=== PATIENT | female | born 1940 | race Caucasian/White ===

== ENCOUNTER 2017-01-15 07:58 | Day surgery (SDC) | payer MEDICARE ==
[2017-01-07 09:01] VITALS: BMI 24.7
[2017-01-15] MEDS: MethylPREDNISolone Depo 40 mg/ml Inj ONE ×2 (08:52→09:28)
[2017-01-15] MEDS: Iohexol 240 (50 ml) ONE ×2 (08:53→09:28)
[2017-01-15] MEDS: Bacitracin 500 Units/gm Oint Foilpak UD ONE ×2 (08:53→09:28)
[2017-01-15] MEDS ORDERED: Lactated Ringer's 1,000 ML IV ONE (09:17)
[2017-01-15] MEDS ORDERED: Propofol 10 mg/ml Inj (20 ML) ONE (09:18)
[2017-01-15] MEDS ORDERED: Midazolam 2 MG/2 ML VIAL ONE (09:18)
[2017-01-15] MEDS ORDERED: Labetalol 25mg/5ml Syringe ONE (09:28)
[2017-01-15] MEDS ORDERED: HYDROmorphone 0.5 mg/0.5 ml ISec IVP PRN (09:38)
[2017-01-15 10:01] VITALS: O2SAT 100
[2017-01-15 10:31] VITALS: RESP 16
[2017-01-15 11:32] VITALS: TEMP 97.2
[2017-01-15 12:03] VITALS: BP 157/68; PULSE 79
--- NOTE | 2017-01-15 21:39 | OP ---
PROCEDURE DATE: 01/15/2017 PREOPERATIVE DIAGNOSIS: Spinal stenosis. POSTOPERATIVE DIAGNOSIS: Spinal stenosis. PROCEDURE: Epidurogram of the lumbar spine. DESCRIPTION OF PROCEDURE: After the patient was brought into the operating room and placed in the prone position on the operating table with her back sterilely prepped and draped and the Tuohy needle placed and was felt to be the epidural space, an epidurogram of the lumbar spine was performed. A 1.5 mL of Omnipaque 240 contrast was slowly injected through the needle and that flowed freely without resistance, as visualized intraoperative in the fluoroscopic monitors noted the outlining epidural space with filling of the left S1 root canal. Having verified location of the needle, we then proceeded with administration of the patient's epidural injection. Wes Eldridge MD
--- NOTE | 2017-01-16 08:43 | OP ---
PROCEDURE DATE: 01/15/2017 PREOPERATIVE DIAGNOSIS: Spinal stenosis. POSTOPERATIVE DIAGNOSIS: Spinal stenosis. PROCEDURE: Left L5-S1 lumbar epidural steroid injection. SURGEON: Wes Eldridge MD ANESTHESIA: IV sedation and local. DESCRIPTION OF PROCEDURE: The patient was brought to the operating room and placed on the operating table in prone position. Intravenous sedation was administered while the patient's back was sterilely prepped and draped. The site of the needle insertion was located under fluoroscopy and infiltrated lidocaine with epinephrine. A 20-gauge Tuohy needle was inserted down the level of the superior lamina of S1 and slowly advanced cephalad so as to go through the ligamentum. At that time, there was loss of resistance to the attached syringe, but no fluid on draw back. In order to confirm location of the needle, an epidurogram of the lumbar spine was performed and this will be dictated separately. After the completion of the epidurogram, the patient received her epidural injection. A mixture of 80 mg of Depo-Medrol and normal saline was slowly injected into the epidural space and that flowed freely without resistance. The needle was then withdrawn, the Bacitracin and band-aid dressing applied. The patient was gently transferred back on to a stretcher and taken to the recovery room in stable condition. She tolerated the procedure well. Wes Eldridge MD MTDD
--- NOTE | 2017-01-16 10:34 | RAD ---
INTRAOPERATIVE FLUOROSCOPY HISTORY: LESI. Lumbar stenosis. TECHNIQUE/FINDINGS: Fluoroscopic guidance was provided by Radiology department. Please see operative report for full details. 1 image was provided. Total fluoroscopy time was 12.3 seconds. IMPRESSION: As above
== END 2017-01-15 11:17 | disposition home or self-care (01) ==
LOC: C.SDS 07:58
PROVIDERS: ATTEND Orthopaedic Surgery Orthopaedic Surgery of the Spine
DX: M48.06 Spinal stenosis, lumbar region (principal); M51.27 Other intervertebral disc displacement, lumbosacral region
CPT/HCPCS: 62323; 72275; 76000; J1030; J2250; J2704; J3010; J7120; Q9966

== ENCOUNTER 2017-01-30 08:38 | Day surgery (SDC) | payer MEDICARE ==
[2017-01-27 13:12] VITALS: BMI 25.6
[~2017-01-30 08:38] MED LIST: Bacitracin Ointment 30 GM TUBE ONE; Iohexol 240 (50 ml) ONE; MethylPREDNISolone Depo 40 mg/ml Inj ONE; Sodium Chloride 0.9% 20 ML IV ONE
[2017-01-30] MEDS ORDERED: Lactated Ringer's 1,000 ML IV ONE (09:30)
[2017-01-30] MEDS ORDERED: Midazolam 2 MG/2 ML VIAL ONE (09:41)
[2017-01-30] MEDS ORDERED: Propofol 10 mg/ml Inj (20 ML) ONE (09:41)
[2017-01-30 11:18] VITALS: RESP 17
[2017-01-30 11:22] VITALS: BP 150/72; PULSE 101; TEMP 97.5; O2SAT 98
--- NOTE | 2017-01-30 15:35 | RAD ---
PROCEDURE: Intraoperative Fluoroscopy. HISTORY: LUMBAR STENOSIS FINDINGS: Fluoroscopic assistance was provided for lumbar epidural spinal injection. Please refer to the operative report from
--- NOTE | 2017-02-02 16:06 | OP ---
PROCEDURE DATE: 01/30/2017 PREOPERATIVE DIAGNOSES: Stenosis and derangement lumbar spine with left radiculopathy. POSTOPERATIVE DIAGNOSES: Stenosis and derangement lumbar spine with left radiculopathy. PROCEDURE: Left L4-L5 lumbar epidural steroid injection. SURGEON: Wes Eldridge MD ANESTHESIA: IV sedation. DESCRIPTION OF PROCEDURE: The patient was brought to the operating room and placed on the operating table in the prone position. Intravenous sedation was administered while her back was sterilely prepped and draped. The site of the needle insertion was located under fluoroscopy and infiltrated lidocaine with epinephrine. A 20-gauge Tuohy needle was inserted down the level of the superior lamina of L5 and slowly advanced cephalad so as to go through the ligamentum. At that time, there was loss of resistance, we detached the syringe, but no fluid on draw back. In order to confirm location of the needle, an epidurogram of the lumbar spine was performed and this will be dictated separately. After the completion of the epidurogram, the patient received her epidural injection. A mixture of 80 mg of Depo-Medrol and normal saline was slowly injected into the epidural space. It flowed freely without resistance. The needle was then withdrawn, the Bacitracin bandage dressing applied. The patient was gently transferred back on to a stretcher in supine position. She was taken to the recovery room in stable condition. She tolerated the procedure well. Wes Eldridge MD
--- NOTE | 2017-02-02 16:15 | OP ---
PROCEDURE DATE: 01/30/2017 PREOPERATIVE DIAGNOSES: Stenosis and derangement lumbar spine with left radiculopathy. POSTOPERATIVE DIAGNOSES: Stenosis and derangement lumbar spine with left radiculopathy. PROCEDURE: Epidurogram of the lumbar spine. SURGEON: Wes Eldridge MD DESCRIPTION OF PROCEDURE: After the patient was positioned prone on the operating table with her back sterilely prepped and draped, the Tuohy needle placement was felt to be at the epidural space at the 4-5 level, an epidurogram of the lumbar spine was performed. A 2 mL Omnipaque 240 contrast was slowly injected into the epidural space. It flowed freely without resistance. As visualized intraoperative in the fluoroscopy monitors noted the outlining epidural space with filling of the exiting and traversing nerve root canals. Having verified location of the needle, we then proceeded with administration of the patient's epidural injection. Wes Eldridge MD
== END 2017-01-30 11:30 | disposition home or self-care (01) ==
LOC: C.SDS 08:38
PROVIDERS: ATTEND Orthopaedic Surgery Orthopaedic Surgery of the Spine
DX: M51.27 Other intervertebral disc displacement, lumbosacral region (principal); M48.061 Spinal stenosis, lumbar region without neurogenic claudication
CPT/HCPCS: 62322; 76000; J2250; J2704; J7120

== ENCOUNTER 2017-09-21 12:25 | Emergency (ER) | payer MEDICARE ==
[2017-09-21 12:27] VITALS: BMI 26.5
[2017-09-21 12:35] VITALS: BP 161/76; PULSE 107; TEMP 99.2; O2SAT 95
--- NOTE | 2017-09-21 13:14 | C.PDOC ---
History Of Present Illness 77 y/o female presents to ED with complaints of anxiety associated with diarrhea. Patient states she took her first pill of lexapro; related to her 's . Time Seen by Provider: 09/21/17 13:05 Chief Complaint (Nursing): GI Problem History Per: Patient History/Exam Limitations: no limitations Onset/Duration Of Symptoms: Hrs Current Symptoms Are (Timing): Still Present Suicide/Self Injury Attempted (Context): None Modifying Factor(s): None Associated Symptoms: Anxiety, Depression. denies: Suicidal Thoughts, Suicidal Plan Involuntary Hold By: None Recent travel outside of the [place]: No Past Medical History Reviewed: Historical Data, Nursing Documentation, Vital Signs Vital Signs: Last Vital Signs Temp 99.2 F 09/21/17 12:27 Pulse 107 H 09/21/17 12:27 Resp 18 09/21/17 13:22 BP 161/76 H 09/21/17 12:27 Pulse Ox 95 09/21/17 13:27 - Medical History PMH: Anxiety, Arthritis, Colonic Polyps, Depression, Fractures (lumbar), HTN, Hypercholesterolemia, Osteoporosis Surgical History: Appendectomy - [facility] Procedures COLONOSCOPY (08/11/13) ESOPHAGOGASTRODUODENOSCOPY [EGD] W/CLOSED BIOPSY (08/11/13) VENOUS CATHETERIZATION NEC (12/30/14) Family History: States: Unknown Family Hx - Social History Hx Alcohol Use: No (drinks wine) Hx Substance Use: No - Immunization History Hx Tetanus Toxoid Vaccination: No Hx Influenza Vaccination: No Hx Pneumococcal Vaccination: No Review Of Systems Constitutional: Negative for: Fever, Chills Gastrointestinal: Positive for: Diarrhea. Negative for: Nausea, Vomiting, Abdominal Pain, Constipation Skin: Negative for: Rash Neurological: Negative for: Weakness, Numbness Psych: Positive for: Anxiety. Negative for: Suicidal ideation Physical Exam - Physical Exam Appears: Non-toxic, No Acute Distress, Other (Anxious; dramatic; hypnotic) Skin: Normal Color, Warm, Dry Head: Atraumatic, Normacephalic Eye(s): bilateral: Normal Inspection, PERRL, EOMI Oral Mucosa: Moist Neck: Supple Chest: Symmetrical, No Tenderness Cardiovascular: Rhythm Regular, No Murmur Respiratory: Normal Breath Sounds, No Decreased Breath Sounds, No Rales, No Rhonchi, No Wheezing Gastrointestinal/Abdominal: Soft, No Tenderness Neurological/Psych: Oriented x3, Normal Speech, Normal Cognition Gait: Steady ED Course And Treatment ECG: Interpreted By Me ECG Rhythm: Sinus Rhythm ECG Interpretation: Normal Rate From EC O2 Sat by Pulse Oximetry: 95 (RA) Pulse Ox Interpretation: Normal Medical Decision Making Medical Decision Making: Ordered EKG and blood work. anxiety, ? adverse effect of new psych med (lexapro) started this AM anxiety ( just ) normal EKG baseline anxiety Impression: -- Baseline anxiety and depression Re-evaluation: -- Patient feels better. Discussed results and plan with patient who expresses understanding. All questions answered and there is agreement with the plan to discharge home with instructions. Patient stable for discharge. Return if symptoms persist or worsen. Disposition Doctor Will See Patient In The: Office Counseled Patient/Family Regarding: Studies Performed, Diagnosis - Disposition Referrals: Albaro Asher MD [Medical Doctor] - Disposition: HOME/ ROUTINE Disposition Time: 13:15 Condition: GOOD Additional Instructions: ya no graciela el medicamento para anxiedad que tomastes hoy Sigue con travis medico EKG normal hoy. Instructions: Anxiety, Adult (DC), Adverse Drug Reactions, Adult (DC) Forms: [employer] (Canadian) Print Language: FRENCH - Clinical Impression Clinical Impression: Anxiety about health, Adverse drug experience - Scribe Statement The provider has reviewed the documentation as recorded by the Tanaibjenn Ness All medical record entries made by the Scribe were at my direction and personally dictated by me. I have reviewed the chart and agree that the record accurately reflects my personal performance of the history, physical exam, medical decision making, and the department course for this patient. I have also personally directed, reviewed, and agree with the discharge instructions and disposition.
[2017-09-21 13:23] VITALS: RESP 18
== END 2017-09-21 13:23 | disposition home or self-care (01) ==
LOC: C.ER 12:25
DX: F41.9 Anxiety disorder, unspecified (principal); T50.995A Adverse effect of other drugs, medicaments and biological substances, initial encounter; Y92.9 Unspecified place or not applicable

== ENCOUNTER 2017-11-25 05:44 | Inpatient (IN) | payer MEDICARE ==
[2017-11-04 09:53] VITALS: BMI 27.9
--- NOTE | 2017-11-19 15:01 | HP ---
HISTORY OF PRESENT ILLNESS: The patient is a 77-year-old young lady, who sustained a fracture of L1 back in 03/2016. She had progressive pain and disability arising from it. She was seen in consultation in the hospital on 02/13/2016, after consultation with she and her family, was taken to the operating room on the , where she underwent a L1 laminectomy and a T12-L2 fusion. She initially did well postoperatively, but then had a recurrence of pain and x-ray showed further collapse at the fracture site. It was recommended at that time to take her back to the operating room to extend the fusion length, but she declined having any more surgery at that point. However, the pain has progressed to the point that she wants to have something done. She is also complaining of pain in her legs with ambulation and her studies also show a fair amount of spinal stenosis in the lower lumbar region. Therefore, the plan is to augment her fusion and extend the hardware above and below her previous surgical site as well as performed decompressive laminectomy in the lower lumbar region to try and ease up her stenotic symptoms. PAST MEDICAL HISTORY: Significant for hypertension and hypercholesterolemia. She also has GERD. She was seen by Dr. Asher and for pulmonary condition is seen by Dr. Cobos. She has been cleared by those doctors for her surgery. MEDICATIONS: As listed. ALLERGIES: SHE IS ALLERGIC TO VANCOMYCIN. 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 She also had an appendectomy done. This is in addition to her spine surgery as mentioned above. PHYSICAL EXAMINATION: She as mentioned was just seen by her medical doctor as well as store operations specialist and has been cleared. The normal findings are as per those examinations. She is tender to palpation in the thoracolumbar junction, where she had her previous fracture as well as in the lumbosacral region. She remains neurologically intact in both legs on gross exam for sensation and motor. Her incision has healed well. As mentioned, she is being admitted at this time for revision of her back surgery due to her continued collapse at her fracture site. We also do a laminectomy to alleviate her significant spinal stenosis. This was discussed on multiple occasions with she and her daughter, and I feel all their questions were answered to their satisfaction and she is consented to the operation. Wes Eldridge MD
[2017-11-25] MEDS ORDERED: ceFAZolin IV 1 gm in Dextrose 0 GM/0 ML BAG IVPB ONE (07:16)
[2017-11-25] MEDS ORDERED: Absorbable Gelatin Sponge Size 100 ONE (07:16)
[2017-11-25] MEDS ORDERED: Thrombin Topical 5,000 Int Units Spray Kit ONE (07:18)
[2017-11-25] MEDS ORDERED: Lidocaine/Epinephrine 1% 1:100000 10 ML IJ ONE (07:18)
[2017-11-25] MEDS ORDERED: Bupivacaine 0.25% 20 ML INJ IJ ONE (07:18)
[2017-11-25] MEDS ORDERED: Bupivacaine 0.5% Inj(30mL) IJ ONE (07:23)
[2017-11-25] MEDS ORDERED: Bacitracin 50,000 UNIT in Sodium Chloride 0.9% Irrig 1,000 ML IR SCH (07:30)
[2017-11-25] MEDS ORDERED: Propofol 10 mg/ml 1,000 MG/100 ML VIAL ONE ×2 (07:32→11:12)
[2017-11-25] MEDS ORDERED: Propofol 10 mg/ml Inj (20 ML) ONE ×3 (07:33→11:10)
[2017-11-25] MEDS ORDERED: Midazolam 2 MG/2 ML VIAL ONE (07:33)
[2017-11-25] MEDS ORDERED: Bupivacaine Liposomal Inj 20 ml INFIL ONE (07:53)
[2017-11-25] MEDS ORDERED: ceFAZolin IV 2 gm in Dextrose 2 GM/50 ML BAG IVPB ONE (08:18)
[2017-11-25] MEDS ORDERED: Phenylephrine 10 mg/ml Inj ONE ×2 (09:03→11:33)
[2017-11-25] MEDS ORDERED: Esmolol 100 mg/10ml Inj IV ONE (10:36)
[2017-11-25] MEDS ORDERED: niCARdipine IV 25 MG in Sodium Chloride 0.9% 240 ML IV SCH (10:45)
[2017-11-25] MEDS ORDERED: Sodium Chloride 0.9% 60 ML IV ONE (11:04)
[2017-11-25] MEDS ORDERED: Bacitracin 500 Units/gm Oint Foilpak UD ONE (13:34)
[2017-11-25] MEDS ORDERED: Lactated Ringer's 1,000 ML IV ONE (14:27)
[2017-11-25] MEDS: HYDROmorphone 0.5 mg/0.5 ml ISec IVP PRN ×2 (14:36→14:58)
[2017-11-25] MEDS: Potassium Ch 20mEq in D5-1/2NS 1,000 ML IV SCH (17:00)
[2017-11-25 17:50] VITALS: RESP 20
[2017-11-26] MEDS: Potassium Ch 20mEq in D5-1/2NS 1,000 ML IV SCH ×5 (00:24→19:46)
[2017-11-26] MEDS: Metoprolol Succinate 25 mg XL Tab PO SCH ×2 (00:24→21:30)
[2017-11-26] MEDS ORDERED: Albuterol-Ipratrop 3 mg / 0.5 (3 ml) UD INH ONE (02:33)
[2017-11-26] MEDS: (Novolin R) Insulin Human Regular 100 units/ml vial SC SCH ×4 (07:30→21:14)
--- NOTE | 2017-11-26 09:11 | RAD ---
Date of service: 11/25/2017 PROCEDURE: Intraoperative Fluoroscopy. HISTORY: FX L1 SPINAL CORD COMPRESSION,SPINAL STENOSIS L2-L3 FINDINGS: Fluoroscopic assistance was provided for lumbar spinal surgery. Please refer to the operative report from KEVIN Lindsey. Cumulative radiation dose was 112.78 mGy with 117.9 seconds of fluoroscopy time utilized.
[2017-11-26] MEDS ORDERED: Metoprolol Succinate 25 mg XL Tab PO SCH (10:00)
--- NOTE | 2017-11-26 10:58 | CP.PCM.PN ---
Subjective - Date & Time of Evaluation Date of Evaluation: 11/26/17 Time of Evaluation: 10:54 - Subjective Subjective: SPINE - POD #1 Pt resting in bed. Being log rolled. Complains of signif post-op pain, but had anxiety attack last night and wasn't using the CALTR[employer] EQUIPMENT OPERATOR. Tried it again this morning. Also c/o headache.Voiding via coto. VSS. Temp 98-99. Moving LE's actively. Sens intact to light touch. Motor good. Plan: Mobilize as tolerated. Will d/c coto in am when pt more mobile. Change to oral analgesics tomorrow or earlier if pt still w side effects of [employer] EQUIPMENT OPERATOR. REJI upon discharge. Objective - Vital Signs/Intake and Output Vital Signs (last 24 hours): Temp Pulse Resp BP Pulse Ox 98.1 F 82 20 151/73 H 100 11/26/17 08:48 11/26/17 08:48 11/26/17 08:48 11/26/17 08:48 11/26/17 08:48 Intake and Output: 11/26/17 11/26/17 06:59 18:59 Intake Total 1100 Output Total 400 Balance 700 - Medications Medications: Current Medications Acetaminophen (Tylenol 325mg Tab) 650 mg PO Q6H PRN PRN Reason: fever Aspirin (Ecotrin) 81 mg PO DAILY [facility] Last Admin: 11/26/17 10:19 Dose: 81 mg Famotidine (Pepcid) 20 mg PO DAILY [facility] Last Admin: 11/26/17 10:19 Dose: 20 mg Hydromorphone/Sodium Chloride (Dilaudid Derrick [employer] Leverman) 6 mg IV Q4H PRN; Protocol PRN Reason: Pain, moderate (4-7) Last Admin: 11/25/17 19:04 Dose: 6 mg Nicardipine HCl 25 mg/ Sodium (Chloride) 250 mls @ 50 mls/hr IV .Q5H LACI; 5 MG/ HR PRN Reason: Protocol Potassium Chloride/Dextrose/Sod Cl (Potassium Chl 20 Meq In D5-1/2ns) 1,000 mls @ 125 mls/hr IV .Q8H [facility] Last Admin: 11/26/17 07:00 Dose: Not Given Insulin Human Regular (Novolin R) 0 unit SC ACHS LACI PRN Reason: Protocol Last Admin: 11/26/17 07:30 Dose: Not Given Losartan Potassium (Cozaar) 100 mg PO DAILY [facility] Last Admin: 11/26/17 10:20 Dose: 100 mg Metoprolol Succinate (Toprol Xl) 25 mg PO HS [facility] Last Admin: 11/26/17 00:24 Dose: 25 mg Montelukast Sodium (Singulair) 10 mg PO [facility] Rosuvastatin Calcium (Crestor) 5 mg PO [facility] Last Admin: 11/26/17 00:24 Dose: 5 mg
[2017-11-26] MEDS: oxyCODONE 10 mg ER Tab (oxyCONTIN) PO SCH ×2 (13:38→21:31)
[2017-11-27] MEDS: Potassium Ch 20mEq in D5-1/2NS 1,000 ML IV SCH ×5 (00:21→22:38)
--- NOTE | 2017-11-27 06:49 | OP ---
Copied To: Wes Eldridge MD Attending MD: Wes Eldridge MD PROCEDURE DATE: 11/25/2017 PREOPERATIVE DIAGNOSES: 1. Status post fracture L1 with further collapse. 2. Spinal stenosis at L3-L5. POSTOPERATIVE DIAGNOSES: 1. Status post fracture L1 with further collapse. 2. Spinal stenosis at L3-L5. OPERATIONS: 1. Revision of hardware with posterior spinal fusion T10-L3. 2. Decompressive laminectomy L3-L5. 3. Autograft by means of bone marrow aspiration. SURGEON: Wes Eldridge MD CO-SURGEON: Peter Coles MD TYPE OF ANESTHESIA: General endotracheal tube intubation. DESCRIPTION OF PROCEDURE: The patient was brought to the operating room and general anesthesia was achieved. Intravenous antibiotics were administered and spinal cord monitoring leads were placed throughout the patient's body. Real time monitoring was done by a animal husbandry technician in the room and remote monitoring done by a physician as well. Sequential compression boots were placed to each of the patient's legs. After the antibiotics were administered, a Lee catheter was inserted. The patient was then gently transferred onto the operating table, placed prone on a Ciro table in order to obtain some extension if possible at the fracture site. The patient sustained a type fracture of L1 in 2015 and had a short construct done but over time, had further collapse at L1 with continued severe pain at the site. As first, she was reluctant to have anything else done, but she and her daughter did agree to undergo further stabilization procedure at this time. A sterile drape was used to seal off the patient's peroneal region from the operative field. Care was taken to protect her elbows and knees from pressure points. Her back was sterilely prepped and draped. The level of the incision was noted under fluoroscopy infiltrate with lidocaine with epinephrine. Baseline values were good with neurophysiologic monitoring. An incision was made sharply in the midline, taken down through subcutaneous tissue using sharp and blunt dissection. Hemostasis achieved using electrocautery. The fascia was divided and stripped laterally off the spinous processes and lamina out to the level of the transverse processes of T10/11/12 as well as the transverse processes in the lumbar region. Hemostasis achieved with electrocautery and thrombinated Gelfoam powder. The patient had a solid what appeared to be a solid bony fusion mass in the midline bridging T12-L2, the levels of her previous surgery. Hardware could be visualized as well. Fluoroscopic views were taken to confirm we were at the appropriate levels above and below. At that time, a trocar was placed in the posterior right ileum and 120 mL of bone marrow aspirate was obtained. This was sterilely passed off the animal husbandry technician who processed it to the harvest system. Th collected mesenchymal stem cells were then returned to the OR table and used to process through the IC chamber as well as soak a large piece of Infuse which was cut to 6 strips. The laminectomy was then carried out using Leksell rongeur to remove the spinous process and using the Smart Eyex system to perform the laminectomy itself. This was done until we could easily pass a Teresa tool at each neuroforamen on each side and below the 4-5 disc levels. This was taken up to the site of her previous surgery. At that time, scar was tissue was encountered. There appear to be a small tear but no CSF leak was noted. After this area had been manipulated, there was a diminution of the SSEPs of the right lower extremities noted by neurophysiologic monitoring. However, this remained stable, and by the end of the case, have returned to its baseline normal level. The patient's laminar bone was combined with the IC chamber bone and Optium putty to create a bone grafting substrate. We undid the caps and removed the rods on each side. Her preoperative MRI and CAT scan had been reviewed and appeared that with the collapse the T12 screws no longer had the good type of bony purchase that was desired. Therefore, these two screws were removed and the holes irrigated. A high speed drill was used to decorticate the transverse processes at T10, T11, and T12 along with L2 and L3 on each side. The previous fusion mass was roughened up as well to counter bleeding bone, and this was done medially as well from T12 up to T10. Under fluoroscopic guidance, an entry point was noted for the T10 pedicle on the right side. The thoracic gear shift tool was used to create a channel through the pedicle, and bony integrity was confirmed with the ball tip probe. A 6 x 50 mm Expedium screw was inserted. Motor stimulation done as the screw placement revealed no abnormalities. In a similar fashion, the left T10 screw was placed under fluoroscopic guidance, and again motor stimulation after placement of 6 x 50 m screw revealed no abnormalities. We then moved down to the T11 level, where again under fluoroscopy, the entry point was noted and marked with the high speed drill and the gearshift tool again used to create the channel through the pedicle. Once bony integrity was confirmed on each side, 6 x 45 mm screws were inserted. Again motor stimulation done after each screw placement revealed no abnormalities. We then moved down to the L3 level. Again under fluoroscopy, drill was used to create the entry point on each side and the gear shift tool used to create the channel through the pedicle. After the ball tip probe confirmed bony integrity through out, a 6 x 50 mm Expedium screw was inserted on the right, and a 6 x 55 mm screw inserted on the left. Again, she had her L2 screws left in place, they appear to be secure on pull testing. The rods were then cut in order to bridge the four screws on each side. AP and lateral fluoroscopic views showed good position of the hardware. The DuraSeal was used to cover the area of scar tissue that had the tear but again no CSF leak. A large piece of solid Gelfoam was then used to cover the exposed neural elements. Three #7 Matrix CrossLinks were used to add rotational stability of the construct. The strips of Infuse along with the bone grafting substrate was then packed medically and laterally in order to bridge the decorticated surfaces. The wound was then closed in layers with interrupted sutures of 1-Vicryl and 0-Vicryl for the muscle and the fascia. Bacitracin powder was placed on the muscle layer and then the fascial layer after closure as the PATIENT WAS ALLERGIC TO VANCOMYCIN; 20 mL of 0.5% Marcaine was injected into the paraspinal tissues to help with postoperative pain relief along with 20 mL of Exparel diluted with 40 mL of saline. The subcutaneous tissue was irrigated prior to placement of the antibiotic powder and then closed in layers with interrupted sutures of 2-0 Vicryl. The skin was approximated with zara. Sterile Bacitracin ointment and sterile compressive dressing were applied. The patient was then gently transferred back on to her bed in supine position. She is awaken and extubated. She was transferred to recovery room in stable condition, having tolerated the procedure well. Estimated blood loss is 700 mL. She received 2 liters of crystalloid during the operation as well as 250 mL back from the CellSaver. She had urine output of 350 mL over the course of the procedure. She is moving all extremities at the time of her transfer, and again no permanent electrophysiologic abnormalities were noted at the completion of the case, having either remained or return to baseline by the completion of surgery. Wes Eldridge MD MTDMuriel
[2017-11-27] MEDS: (Novolin R) Insulin Human Regular 100 units/ml vial SC SCH ×4 (07:50→22:37)
--- NOTE | 2017-11-27 08:18 | CP.PCM.PN ---
Subjective - Date & Time of Evaluation Date of Evaluation: 11/27/17 Time of Evaluation: 08:16 - Subjective Subjective: SPINE - POD #2 Pt resting in bed. Still with signif pain. Now on oral analgesics. + flatus. Lee removed this morning. Afeb. VSS. Neuro remains intact. Plan: Increase Oxycontin to 20 mg BID. Change dressing daily. Advance diet. Objective - Vital Signs/Intake and Output Vital Signs (last 24 hours): Temp Pulse Resp BP Pulse Ox 99.4 F 80 20 166/81 H 100 11/27/17 08:13 11/27/17 08:13 11/27/17 08:13 11/27/17 08:13 11/27/17 08:13 Intake and Output: 11/27/17 11/27/17 06:59 18:59 Intake Total 1000 Output Total 875 Balance 125 - Medications Medications: Current Medications Acetaminophen (Tylenol 325mg Tab) 650 mg PO Q6H PRN PRN Reason: fever Aspirin (Ecotrin) 81 mg PO DAILY [facility] Last Admin: 11/26/17 10:19 Dose: 81 mg Famotidine (Pepcid) 20 mg PO DAILY [facility] Last Admin: 11/26/17 10:19 Dose: 20 mg Nicardipine HCl 25 mg/ Sodium (Chloride) 250 mls @ 50 mls/hr IV .Q5H [facility]; 5 MG/ HR PRN Reason: Protocol Potassium Chloride/Dextrose/Sod Cl (Potassium Chl 20 Meq In D5-1/2ns) 1,000 mls @ 125 mls/hr IV .Q8H [facility] Last Admin: 11/27/17 06:41 Dose: Not Given Insulin Human Regular (Novolin R) 0 unit SC ACHS [facility] PRN Reason: Protocol Last Admin: 11/27/17 07:50 Dose: Not Given Losartan Potassium (Cozaar) 100 mg PO DAILY [facility] Last Admin: 11/26/17 10:20 Dose: 100 mg Metoprolol Succinate (Toprol Xl) 25 mg PO HS [facility] Last Admin: 11/26/17 21:30 Dose: 25 mg Montelukast Sodium (Singulair) 10 mg PO HS [facility] Last Admin: 11/26/17 21:30 Dose: 10 mg Oxycodone HCl (Oxycontin Extended Release Tab) 10 mg PO Q12 [facility] Stop: 11/30/17 10:01 Oxycodone HCl (Oxycontin Extended Release Tab) 10 mg PO Q12 [facility] Stop: 11/29/17 12:46 Last Admin: 11/26/17 21:31 Dose: 10 mg Oxycodone/Acetaminophen (Percocet 5/325 Mg Tab) 1 tab PO Q4H PRN PRN Reason: Pain, Mild (1-3) Stop: 11/30/17 08:01 Rosuvastatin Calcium (Crestor) 5 mg PO [facility] Last Admin: 11/26/17 21:30 Dose: 5 mg
[2017-11-27] MEDS: Oxycodone/Acetaminophen 5/325 mg Tab PO PRN ×4 (08:44→22:18)
--- NOTE | 2017-11-27 09:02 | CP.PCM.HP ---
Past Patient History - Infectious Disease Hx of Infectious Diseases: None - Tetanus Immunizations Tetanus Immunization: Unknown - Past Medical History & Family History Past Medical History?: Yes - Past Social History Smoking Status: Never Smoked - CARDIAC Hx Cardiac Disorders: Yes Hx Hypercholesterolemia: Yes Hx Hypertension: Yes Hx Peripheral Edema: Yes Hx Peripheral Vascular Disease: Yes - PULMONARY Hx Respiratory Disorders: Yes Hx Sleep Apnea: Yes (has c-pap at home not using. being assessed for a different device) - NEUROLOGICAL Hx Neurological Disorder: Yes Hx Dizziness: Yes - HEENT Hx HEENT Problems: Yes Hx Cataracts: Yes (BILAT IOL) - RENAL Hx Chronic Kidney Disease: No - ENDOCRINE/METABOLIC Hx Endocrine Disorders: No - HEMATOLOGICAL/ONCOLOGICAL Hx Blood Disorders: No - INTEGUMENTARY Hx Dermatological Problems: No - MUSCULOSKELETAL/RHEUMATOLOGICAL Hx Musculoskeletal Disorders: Yes Hx Arthritis: Yes Hx Back Pain: Yes Hx Falls: Yes (once in last 6 months) Hx Fractures: Yes (lumbar) Hx Herniated Disk: Yes Hx Osteoarthritis: Yes Hx Osteoporosis: Yes - GASTROINTESTINAL Hx Gastrointestinal Disorders: Yes Hx Gastroesophageal Reflux: Yes - GENITOURINARY/GYNECOLOGICAL Hx Genitourinary Disorders: No - PSYCHIATRIC Hx Psychophysiologic Disorder: Yes Hx Anxiety: Yes Hx Depression: Yes Hx Substance Use: No - SURGICAL HISTORY Hx Surgeries: Yes Hx Appendectomy: Yes Hx Cataract Extraction: Yes (B/L) Hx Joint Replacement: Yes (left TKR 2011) Hx Musculoskeletal Surgery: Yes (t12 - L4 fusion) Hx Orthopedic Surgery: Yes (anneliese. knee replacement in 2013 with complications) Hx Tubal Ligation: Yes Other/Comment: EPIDURAL INJECTION - ANESTHESIA Hx Anesthesia: Yes Hx Anesthesia Reactions: No Hx Malignant Hyperthermia: No Has any member of the family had a problem w/ anesthesia?: No Meds Allergies/Adverse Reactions: Allergies Allergy/AdvReac Type Severity Reaction Status Date / Time vancomycin Allergy ANAPHYLAXIS Verified 12/15/15 15:22 Results - Vital Signs Recent Vital Signs: Last Vital Signs Temp 99.4 F 11/27/17 08:13 Pulse 80 11/27/17 08:13 Resp 20 11/27/17 08:13 BP 166/81 H 11/27/17 08:13 Pulse Ox 100 11/27/17 08:13 - Labs Labs: Laboratory Results - last 24 hr 11/26/17 11/26/17 11/26/17 11:02 15:59 20:56 POC Glucose (mg/dL) 114 H 141 H 136 H 11/27/17 06:04 POC Glucose (mg/dL) 121 H
[2017-11-27] MEDS ORDERED: oxyCODONE 10 mg ER Tab (oxyCONTIN) PO SCH (10:00)
[2017-11-27] MEDS: oxyCODONE 20 mg ER Tab (oxyCONTIN) PO SCH ×2 (10:24→22:12)
[2017-11-27] MEDS: Bacitracin 500 Units/gm Oint Foilpak UD TOP SCH (10:27)
[2017-11-27] MEDS: Metoprolol Succinate 25 mg XL Tab PO SCH (22:12)
--- NOTE | 2017-11-27 23:52 | CP.PCM.PN ---
Subjective - Date & Time of Evaluation Date of Evaluation: 11/27/17 Time of Evaluation: 18:30 - Subjective Subjective: Pt seen and examined at bedside, pt is s/p spinal surgery, B.p is under control , on pain mangment Objective - Vital Signs/Intake and Output Vital Signs (last 24 hours): Temp Pulse Resp BP Pulse Ox 98.3 F 90 20 119/69 99 11/27/17 15:28 11/27/17 22:20 11/27/17 15:28 11/27/17 22:20 11/27/17 15:28 Intake and Output: 11/27/17 11/28/17 18:59 06:59 Intake Total 350 480 Balance 350 480 - Medications Medications: Current Medications Acetaminophen (Tylenol 325mg Tab) 650 mg PO Q6H PRN PRN Reason: fever Aspirin (Ecotrin) 81 mg PO DAILY [facility] Last Admin: 11/27/17 10:23 Dose: 81 mg Bacitracin (Bacitracin) 1 ea TOP DAILY [facility] Last Admin: 11/27/17 10:27 Dose: 1 ea Famotidine (Pepcid) 20 mg PO DAILY [facility] Last Admin: 11/27/17 10:24 Dose: 20 mg Potassium Chloride/Dextrose/Sod Cl (Potassium Chl 20 Meq In D5-1/2ns) 1,000 mls @ 125 mls/hr IV .Q8H [facility] Last Admin: 11/27/17 14:39 Dose: Not Given Insulin Human Regular (Novolin R) 0 unit SC ACHS [facility] PRN Reason: Protocol Last Admin: 11/27/17 16:20 Dose: Not Given Losartan Potassium (Cozaar) 100 mg PO DAILY [facility] Last Admin: 11/27/17 10:25 Dose: 100 mg Metoprolol Succinate (Toprol Xl) 25 mg PO HS [facility] Last Admin: 11/27/17 22:12 Dose: 25 mg Montelukast Sodium (Singulair) 10 mg PO HS [facility] Last Admin: 11/27/17 22:12 Dose: 10 mg Oxycodone HCl (Oxycontin Extended Release Tab) 20 mg PO Q12 [facility] Last Admin: 11/27/17 22:12 Dose: 20 mg Oxycodone/Acetaminophen (Percocet 5/325 Mg Tab) 1 tab PO Q4H PRN PRN Reason: Pain, Mild (1-3) Stop: 11/30/17 08:01 Last Admin: 11/27/17 22:18 Dose: 1 tab Rosuvastatin Calcium (Crestor) 5 mg PO HS [facility] Last Admin: 11/27/17 22:12 Dose: 5 mg - Constitutional Appears: No Acute Distress - Eye Exam Eye Exam: EOMI, Normal appearance, PERRL Pupil Exam: NORMAL ACCOMODATION, PERRL - ENT Exam ENT Exam: Mucous Membranes Moist, Normal Exam - Respiratory Exam Respiratory Exam: Clear to Ausculation Bilateral, NORMAL BREATHING PATTERN - Cardiovascular Exam Cardiovascular Exam: REGULAR RHYTHM, +S1, +S2. absent: Murmur - GI/Abdominal Exam GI & Abdominal Exam: Soft, Normal Bowel Sounds. absent: Tenderness - Rectal Exam Rectal Exam: Deferred Assessment and Plan (1) S/P spinal surgery Assessment & Plan: physical therapy rehab Status: Acute (2) HTN (hypertension) Status: Acute (3) Lumbar compression fracture Status: Acute
[2017-11-28] MEDS: Oxycodone/Acetaminophen 5/325 mg Tab PO PRN (02:07)
[2017-11-28] MEDS: Potassium Ch 20mEq in D5-1/2NS 1,000 ML IV SCH ×2 (06:30→14:49)
[2017-11-28 07:48] LABS: WHITE BLOOD COUNT 10.2 K/uL (4.8-10.8)
[2017-11-28 08:00] LABS: BLOOD UREA NITROGEN 19 mg/dL (7-17); CALCIUM 8.7 mg/dl (8.6-10.4); GFR AFRICAN-AMERICAN > 60; GFR NON-AFRICAN AMERICAN > 60
[2017-11-28 08:05] VITALS: TEMP 97.6; O2SAT 100
[2017-11-28 08:12] LABS: MEAN CORPUSCULAR HEMOGLOBIN 30.2 pg (27.0-31.0); MEAN CORPUSCULAR HGB CONC 33.7 g/dL (33.0-37.0); MEAN PLATELET VOLUME 9.4 fL (7.2-11.7); RBC 2.72 Mil/uL (3.80-5.20); RED CELL DISTRIBUTION WIDTH 14.2 % (11.5-14.5)
[2017-11-28 08:13] LABS: HEMOGLOBIN 8.2 g/dL (11.0-16.0); MEAN CELL VOLUME 89.7 fL (81.0-99.0)
[2017-11-28] MEDS: (Novolin R) Insulin Human Regular 100 units/ml vial SC SCH ×2 (08:23→12:30)
[2017-11-28] MEDS: oxyCODONE 20 mg ER Tab (oxyCONTIN) PO SCH (10:37)
[2017-11-28] MEDS: Bacitracin 500 Units/gm Oint Foilpak UD TOP SCH (10:39)
[2017-11-28 10:41] VITALS: BP 175/79; PULSE 76
--- NOTE | 2017-11-28 14:18 | CP.PCM.PN ---
Subjective - Date & Time of Evaluation Date of Evaluation: 11/28/17 Time of Evaluation: 14:18 - Subjective Subjective: PT D/C'D BY NEUROSURGERY. PT TO GO TO [facility] TODAY. DR. DESIR CLEARED PT FOR D/C ALSO; PT TO GO UNDER HIS SERVICE AT [facility]. TO HAVE REPEAT LABS ON FRIDAY TO CHECK SODIUM AND F/U WITH DR. DESIR. SW TO ARRANGE TRANSPORTATION. SEE BELOE[facility] FOR D/C INSTRUCTIONS. NO FURTHER ORDERS. -PLACE UNDER THE SERVICE OF DR. DESIR WHILE AT [facility]---CALL THE OFFICE FOR ADMITTING ORDERS UPON ARRIVAL. -CONTINUE MEDICATIONS PER THE MED REC FORM---CHANGES CAN BE MADE BY DR. DESIR. -PLEASE CHECK BMP, CBC ON 12/01/17---NOTIFY DR. DESIR OF RESULTS. -FALL PRECAUTIONS PER FACILITY PROTOCOL. -FOR FURTHER ORDERS OR QUESTIONS, CONTACT DR. DESIR. Objective - Vital Signs/Intake and Output Vital Signs (last 24 hours): Temp Pulse Resp BP Pulse Ox 97.6 F 76 20 175/79 H 100 11/28/17 07:00 11/28/17 10:35 11/28/17 07:00 11/28/17 10:35 11/28/17 07:00 Intake and Output: 11/28/17 11/28/17 06:59 18:59 Intake Total 480 Balance 480 - Medications Medications: Current Medications Acetaminophen (Tylenol 325mg Tab) 650 mg PO Q6H PRN PRN Reason: fever Aspirin (Ecotrin) 81 mg PO DAILY [facility] Last Admin: 11/28/17 10:37 Dose: 81 mg Bacitracin (Bacitracin) 1 ea TOP DAILY [facility] Last Admin: 11/28/17 10:39 Dose: 1 ea Famotidine (Pepcid) 20 mg PO DAILY [facility] Last Admin: 11/28/17 10:39 Dose: 20 mg Potassium Chloride/Dextrose/Sod Cl (Potassium Chl 20 Meq In D5-1/2ns) 1,000 mls @ 125 mls/hr IV .Q8H [facility] Last Admin: 11/28/17 06:30 Dose: Not Given Insulin Human Regular (Novolin R) 0 unit SC ACHS [facility] PRN Reason: Protocol Last Admin: 11/28/17 08:23 Dose: Not Given Losartan Potassium (Cozaar) 100 mg PO DAILY [facility] Last Admin: 11/28/17 10:38 Dose: 100 mg Metoprolol Succinate (Toprol Xl) 25 mg PO [facility] Last Admin: 11/27/17 22:12 Dose: 25 mg Montelukast Sodium (Singulair) 10 mg PO HS [facility] Last Admin: 11/27/17 22:12 Dose: 10 mg Oxycodone HCl (Oxycontin Extended Release Tab) 20 mg PO Q12 [facility] Last Admin: 11/28/17 10:37 Dose: 20 mg Oxycodone/Acetaminophen (Percocet 5/325 Mg Tab) 1 tab PO Q4H PRN PRN Reason: Pain, Mild (1-3) Stop: 11/30/17 08:01 Last Admin: 11/28/17 02:07 Dose: 1 tab Rosuvastatin Calcium (Crestor) 5 mg PO [facility] Last Admin: 11/27/17 22:12 Dose: 5 mg - Labs Labs: 11/28/17 07:35 11/28/17 07:35
--- NOTE | 2017-11-29 01:02 | CP.PCM.DIS ---
Provider - Provider Date of Admission: 11/25/17 05:44 Attending physician: Wes Eldridge MD Time Spent in preparation of Discharge (in minutes): 45 Diagnosis - Discharge Diagnosis (1) S/P spinal surgery Status: Acute (2) HTN (hypertension) Status: Acute (3) Lumbar compression fracture Status: Acute Hospital Course - Lab Results Lab Results: Most Recent Lab Values WBC 10.2 K/uL (4.8-10.8) 11/28/17 07:35 RBC 2.72 Mil/uL (3.80-5.20) L 11/28/17 07:35 Hgb 8.2 g/dL (11.0-16.0) L D 11/28/17 07:35 Hct 24.4 % (34.0-47.0) L 11/28/17 07:35 MCV 89.7 fL (81.0-99.0) D 11/28/17 07:35 MCH 30.2 pg (27.0-31.0) 11/28/17 07:35 MCHC 33.7 g/dL (33.0-37.0) 11/28/17 07:35 RDW 14.2 % (11.5-14.5) 11/28/17 07:35 Plt Count 194 K/uL (130-400) 11/28/17 07:35 MPV 9.4 fL (7.2-11.7) 11/28/17 07:35 Sodium 125 mmol/L (132-148) L 11/28/17 07:35 Potassium 4.9 mmol/L (3.6-5.2) 11/28/17 07:35 Chloride 96 mmol/L (98-107) L 11/28/17 07:35 Carbon Dioxide 23 mmol/L (22-30) 11/28/17 07:35 Anion Gap 11 (10-20) 11/28/17 07:35 BUN 19 mg/dL (7-17) H 11/28/17 07:35 Creatinine 0.7 mg/dL (0.7-1.2) 11/28/17 07:35 Est GFR ( Amer) > 60 11/28/17 07:35 Est GFR (Non-Af Amer) > 60 11/28/17 07:35 POC Glucose (mg/dL) 109 mg/dL (65-110) 11/28/17 11:18 Random Glucose 91 mg/dL (65-105) 11/28/17 07:35 Calcium 8.7 mg/dl (8.6-10.4) 11/28/17 07:35 Blood Type A POSITIVE 11/25/17 07:16 Antibody Screen Negative 11/25/17 07:16 - Hospital Course Hospital Course: PT IS DISCHARGE TODAY, S/P SPINE SURERY IS FOR FURTHER REHAB KATTY PT -PLACE UNDER THE SERVICE OF DR. US WHILE AT [facility]---CALL THE OFFICE FOR ADMITTING ORDERS UPON ARRIVAL. -CONTINUE MEDICATIONS PER THE MED REC FORM--- -PLEASE CHECK BMP, CBC ON 12/01/17---NOTIFY DR. FRIED OF RESULTS. -FALL PRECAUTIONS PER FACILITY PROTOCOL. -FOR FURTHER ORDERS OR QUESTIONS, CONTACT MA Discharge Exam - Eye Exam Eye Exam: EOMI, Normal appearance, PERRL Pupil Exam: NORMAL ACCOMODATION, PERRL - ENT Exam ENT Exam: Mucous Membranes Moist - Respiratory Exam Respiratory Exam: Clear to PA & Lateral, NORMAL BREATHING PATTERN - Cardiovascular Exam Cardiovascular Exam: REGULAR RHYTHM, +S1, +S2 - GI/Abdominal Exam GI & Abdominal Exam: Normal Bowel Sounds - Rectal Exam Rectal Exam: Deferred Discharge Plan - Follow Up Plan Condition: GOOD Disposition: HOME/ ROUTINE Instructions: Spinal Stenosis, Spinal Fusion, Low Salt Diet, Posterior Cervical Fusion (DC), Laminectomy (DC), Managing Pain After Surgery Additional Instructions: -PLACE UNDER THE SERVICE OF DR. US WHILE AT [facility]---CALL THE OFFICE FOR ADMITTING ORDERS UPON ARRIVAL. -CONTINUE MEDICATIONS PER THE MED REC FORM---CHANGES CAN BE MADE BY DR. US. -PLEASE CHECK BMP, CBC ON 12/01/17---NOTIFY DR. US OF RESULTS. -FALL PRECAUTIONS PER FACILITY PROTOCOL. -FOR FURTHER ORDERS OR QUESTIONS, CONTACT DR. US. Referrals: Jonnie Us MD [Staff Provider] - Peter Coles MD [Staff Provider] -
== END 2017-11-28 16:03 | DRG 460 ==
LOC: C.9S 05:44 → C.6T 17:41
PROVIDERS: ADMIT Orthopaedic Surgery Orthopaedic Surgery of the Spine; ATTEND Orthopaedic Surgery Orthopaedic Surgery of the Spine
PROC: 0RG6071 Fusion of Thoracic Vertebral Joint with Autologous Tissue Substitute, Posterior Approach, Posterior Column, Open Approach (ICD-10-PCS; principal; 2017-11-25 07:30)
PROC: 01NB0ZZ Release Lumbar Nerve, Open Approach (ICD-10-PCS; 2017-11-25 07:30)
DX: M48.061 Spinal stenosis, lumbar region without neurogenic claudication (principal); M48.56XA Collapsed vertebra, not elsewhere classified, lumbar region, initial encounter for fracture; M51.27 Other intervertebral disc displacement, lumbosacral region; K21.9 Gastro-esophageal reflux disease without esophagitis; Z96.653 Presence of artificial knee joint, bilateral; Z98.1 Arthrodesis status; I10 Essential (primary) hypertension; G47.30 Sleep apnea, unspecified; F41.1 Generalized anxiety disorder; E78.00 Pure hypercholesterolemia, unspecified

== ENCOUNTER 2017-12-06 08:30 | Inpatient (IN) | payer MEDICARE ==
[2017-12-06 08:30] VITALS: BMI 27.9
[2017-12-06] MEDS ORDERED: Sodium Chloride 0.9% 1,000 ML IV ONE ×2 (08:36→12:40)
[2017-12-06] MEDS ORDERED: Sodium Chloride 0.9% 1,000 ML ONE ×2 (08:57→12:50)
[2017-12-06 09:17] LABS: SQUAMOUS EPITHIAL < 1 /hpf (0-5); URINE BACTERIA RARE (<OCC); URINE BILIRUBIN NEGATIVE (NEGATIVE); URINE BLOOD NEGATIVE (NEGATIVE); URINE CLARITY Clear (Clear); URINE COLOR Yellow (YELLOW); URINE GLUCOSE (UA) NORMAL (Normal); URINE LEUKOCYTE ESTERASE NEG Leu/uL (Negative); URINE PROTEIN NEGATIVE (NEGATIVE); URINE UROBILINOGEN NORMAL mg/dL (0.2-1.0)
--- NOTE | 2017-12-06 10:26 | C.PDOC ---
History Of Present Illness 77 y/o female, with PMHx of HTN and sleep apnea, is sent to ED from [place] for evaluation of constipation, vomiting, shortness of breath, and left sided chest pain with deep breathing. Notes having spinal surgery by Dr. Eldridge on 11/25. Denies fever, or other complaints. Time Seen by Provider: 12/06/17 08:31 Chief Complaint (Nursing): GI Problem History Per: Patient History/Exam Limitations: no limitations Current Symptoms Are (Timing): Still Present Location Of Pain/Discomfort: Diffuse Quality Of Discomfort: Gas Associated Symptoms: Constipation Exacerbating Factors: None Alleviating Factors: None Recent travel outside of the [place]: No Past Medical History Reviewed: Historical Data, Nursing Documentation, Vital Signs Vital Signs: Last Vital Signs Temp 98.4 F 12/06/17 13:08 Pulse 94 H 12/06/17 13:08 Resp 18 12/06/17 13:08 BP 167/74 H 12/06/17 13:08 Pulse Ox 96 12/06/17 16:06 - Medical History PMH: Anxiety, Colonic Polyps, Depression, Fractures (lumbar), HTN, Hypercholesterolemia, Osteoporosis, Peripheral Edema, Sleep Apnea (has c-pap at home not using. being assessed for a different device) Denies: Chronic Kidney Disease Surgical History: Appendectomy, Back Surgery (11/25/17) - [facility] Procedures COLONOSCOPY (08/11/13) ESOPHAGOGASTRODUODENOSCOPY [EGD] W/CLOSED BIOPSY (08/11/13) FUSION THOR JT W AUTOL SUB, POST APPR P COL, OPEN (11/25/17) RELEASE LUMBAR NERVE, OPEN APPROACH (11/25/17) VENOUS CATHETERIZATION NEC (12/30/14) Family History: States: Unknown Family Hx - Social History Hx Alcohol Use: No (drinks wine) Hx Substance Use: No - Immunization History Hx Tetanus Toxoid Vaccination: No Hx Influenza Vaccination: No Hx Pneumococcal Vaccination: No Review Of Systems Except As Marked, All Systems Reviewed And Found Negative. Constitutional: Negative for: Fever, Chills Cardiovascular: Positive for: Chest Pain Respiratory: Positive for: Shortness of Breath. Negative for: Cough Gastrointestinal: Positive for: Nausea, Vomiting, Constipation. Negative for: Diarrhea Physical Exam - Physical Exam Appears: Non-toxic, No Acute Distress Skin: Normal Color, Warm, Dry Head: Atraumatic, Normacephalic Eye(s): bilateral: Normal Inspection Oral Mucosa: Moist Throat: Normal Neck: Normal ROM, Supple Cardiovascular: Rhythm Regular Respiratory: Normal Breath Sounds, No Rales, No Rhonchi, No Wheezing Gastrointestinal/Abdominal: Soft, No Tenderness Back: Other (zara in back, no signs of infection) Extremity: Normal ROM Neurological/Psych: Oriented x3, Normal Speech Gait: Unable To Assess ED Course And Treatment - Laboratory Results Result Diagrams: 12/06/17 10:17 12/06/17 10:17 Lab Interpretation: Abnormal ECG: Interpreted By Me ECG Rhythm: Sinus Rhythm, 1st Degree HB ECG Interpretation: Normal O2 Sat by Pulse Oximetry: 96 (RA) Pulse Ox Interpretation: Normal - Radiology CXR: Interpreted by Me CXR Interpretation: Yes: No Acute Disease Nexus Criteria: Negative - Other Rad No standard instances X-Ray: Interpreted by Me Interpretation: dilated loops of bowel - CT Scan/US No standard instances Other Rad Studies (CT/US): Read By Radiologist, Radiology Report Reviewed CT/US Interpretation: FINDINGS: PULMONARY ARTERIES: Unremarkable. No pulmonary embolism. The main pulmonary artery is mildly enlarged. AORTA: The aortic arch and ascending thoracic aorta are ectatic and mildly tortuous. LUNGS : Pulmonary vascular congestion is noted. No evidence of pneumonia or mass lesion. PLEURAL SPACES: Unremarkable. No effusion or pneumothorax. HEART: The heart is mildly to moderately enlarged. No evidence of pericardial effusion. LYMPH NODES: No lymphadenopathy. BONES, CHEST WALL: Status post prior internal fixation at the lower thoracic and in the lumbar spine associated with laminectomy. No fracture or destructive lesion. OTHER FINDINGS : Fluid density noted at the right lower mediastinum of uncertain etiology. IMPRESSION: No evidence of acute pulmonary embolus. Cardiomegaly and mild pulmonary vascular congestion. Low-attenuation density or fluid collection noted at the right lower mediastinum adjacent to small to moderate size hiatus hernia. Progress Note: Treated with IVF NSS, zofran and morphine. On re-evaluation abdomen soft mild tenderness Reassessment Condition: Improved - Physician Consult Information Physician Contacted: Jonnie Us Outcome Of Conversation: admit Medical Decision Making Medical Decision Making: Plan: Blood work Urinalysis EKG Abd & Pelvis CT Angio chest CT Obstructive series IV fluids Disposition Discussed With : Jonnie Us Doctor Will See Patient In The: Hospital - Disposition Disposition: HOSPITALIZED Disposition Time: 13:00 Condition: IMPROVED - POA Present On Arrival: None - Clinical Impression Clinical Impression: Abdominal pain, Enteritis - PA / [employer] HELPER MACHINE / Resident Statement MD/DO has reviewed & agrees with the documentation as recorded. - Scribe Statement The provider has reviewed the documentation as recorded by the Scribe KP All medical record entries made by the Scribe were at my direction and personally dictated by me. I have reviewed the chart and agree that the record accurately reflects my personal performance of the history, physical exam, medical decision making, and the department course for this patient. I have also personally directed, reviewed, and agree with the discharge instructions and disposition. Decision To Admit - Pt Status Changed To: Hospital Disposition Of: Inpatient - Admit Certification Admit to Inpatient:: After my assessment, the patient will require hospitalization for at least two midnights. This is because of the severity of symptoms shown, intensity of services needed, and/or the medical risk in this patient being treated as an outpatient. - InPatient: Physician Admission Certification:: Enteritis. Abdominal pain - . Bed Request Type: Regular Patient Diagnosis: Abdominal pain, Enteritis
[2017-12-06 10:30] LABS: BASO % 0.2 % (0.0-2.0); EOS % 0.2 % (0.0-4.0); HEMOGLOBIN 9.1 g/dL (11.0-16.0); LYMPH # 0.3 K/uL (1.0-4.3); LYMPH % 1.8 % (20.0-40.0); MEAN CORPUSCULAR HGB CONC 33.5 g/dL (33.0-37.0); MEAN PLATELET VOLUME 7.7 fL (7.2-11.7); MONO # 0.4 K/uL (0.0-0.8); MONO % 2.2 % (0.0-10.0); NEUT # 16.2 K/uL (1.8-7.0); NEUT % 95.6 % (50.0-75.0); RBC 3.15 Mil/uL (3.80-5.20); RED CELL DISTRIBUTION WIDTH 13.5 % (11.5-14.5)
[2017-12-06 10:35] LABS: MEAN CELL VOLUME 86.7 fL (81.0-99.0); PLATELET COUNT 469 K/uL (130-400); WHITE BLOOD COUNT 16.9 K/uL (4.8-10.8)
[2017-12-06] MEDS ORDERED: Morphine 4 MG/ML VIAL ONE ×2 (10:40→15:19)
[2017-12-06 11:02] LABS: ALB/GLOB RATIO 1.1 (1.0-2.1); ALBUMIN 3.4 g/dL (3.5-5.0); ALT/SGPT 24 U/L (9-52); AST/SGOT 28 U/L (14-36); BLOOD UREA NITROGEN 13 mg/dL (7-17); CALCIUM 9.8 mg/dl (8.6-10.4); GFR AFRICAN-AMERICAN > 60; GFR NON-AFRICAN AMERICAN > 60; LIPASE 23 U/L (23-300)
[2017-12-06 11:04] LABS: BANDS 7 % (0-2); LYMPHOCYTE 2 % (20-40); MONOCYTE 2 % (0-10); NEUTROPHIL 89 % (50-75); PLATELET ESTIMATE SLIGHTLY INCREASED (NORMAL); TOTAL CELLS COUNTED 100
[2017-12-06 11:05] LABS: HYPOCHROMIC SLIGHT; LARGE PLATELETS PRESENT
[2017-12-06] MEDS ORDERED: Iodixanol 320 MG/ML 100 ML BOTTLE IV ONE (11:20)
--- NOTE | 2017-12-06 12:31 | CT ---
Date of service: 12/06/2017 PROCEDURE: CT Chest with contrast (Pulmonary Angiogram) HISTORY: dyspnea COMPARISON: None available. TECHNIQUE: Axial computed tomography images were obtained of the chest in the pulmonary arterial phase of enhancement. Coronal and sagittal reformatted images were created and reviewed. Intravenous contrast dose: 100 mL Omnipaque 300 Radiation dose: Total exam DLP = 444.39 mGy-cm. This CT exam was performed using one or more of the following dose reduction techniques: Automated exposure control, adjustment of the mA and/or kV according to patient size, and/or use of iterative reconstruction technique. FINDINGS: PULMONARY ARTERIES: Unremarkable. No pulmonary embolism. The main pulmonary artery is mildly enlarged. AORTA: The aortic arch and ascending thoracic aorta are ectatic and mildly tortuous. LUNGS: Pulmonary vascular congestion is noted. No evidence of pneumonia or mass lesion. PLEURAL SPACES: Unremarkable. No effusion or pneumothorax. HEART: The heart is mildly to moderately enlarged. No evidence of pericardial effusion. LYMPH NODES: No lymphadenopathy. BONES, CHEST WALL: Status post prior internal fixation at the lower thoracic and in the lumbar spine associated with laminectomy. No fracture or destructive lesion OTHER FINDINGS: Fluid density noted at the right lower mediastinum of uncertain etiology IMPRESSION: No evidence of acute pulmonary embolus. Cardiomegaly and mild pulmonary vascular congestion. Low-attenuation density or fluid collection noted at the right lower mediastinum adjacent to small to moderate size hiatus hernia.
--- NOTE | 2017-12-06 12:36 | CT ---
Date of service: 12/06/2017 PROCEDURE: CT Abdomen and Pelvis with contrast HISTORY: abdominal pain COMPARISON: Comparison is made with 07/07/2015 TECHNIQUE: Contrast dose: 100 mL Omnipaque. CTA of the chest was obtained concurrently with the same dose of IV contrast and reported separately. Radiation dose: Total exam DLP = 640.06 mGy-cm. This CT exam was performed using one or more of the following dose reduction techniques: Automated exposure control, adjustment of the mA and/or kV according to patient size, and/or use of iterative reconstruction technique. FINDINGS: LOWER THORAX: No evidence of acute pathology. Cardiomegaly is seen. There is a small to moderate size hiatus hernia. There is low-attenuation density or fluid seen at the right lower mediastinum of uncertain etiology. LIVER: Heterogeneous enhancement of the liver noted without evidence of discrete mass. There is mild intrahepatic biliary ductal dilatation noted likely due to prior cholecystectomy. Stable low-attenuation subcentimeter lesion at the liver dome. GALLBLADDER AND BILE DUCTS: Status post cholecystectomy. The common bile duct is mildly dilated likely due to prior cholecystectomy. PANCREAS: Unremarkable. No gross lesion or ductal dilatation. SPLEEN: Unremarkable. ADRENALS: Unremarkable. No mass. KIDNEYS AND URETERS: Unremarkable. No hydronephrosis. No solid mass. VASCULATURE: Unremarkable. No aortic aneurysm. BOWEL: Mild to moderate diffuse small bowel wall thickening and mild dietitian noted. There is no evidence of high-grade bowel obstruction. [id number]-vh-[id number] dilated right colon. APPENDIX: The appendix is not visualized. PERITONEUM: There is a small amount of free fluid in the abdomen and pelvis. No evidence of free air. LYMPH NODES: Unremarkable. No enlarged lymph nodes. BLADDER: Unremarkable. REPRODUCTIVE: Uterus and adnexa are grossly unremarkable. BONES: Patient status post laminectomy and internal fixation at the lumbar spine. There is severe compression deformity of L1 vertebral body new compared to the previous exam. OTHER FINDINGS: None. IMPRESSION: Dilated small bowel loops demonstrate diffuse wall thickening. Correlate clinically for acute enteritis. The possibility of low-grade bowel obstruction is less likely. Dilated right colon. Small amount of free fluid in the abdomen and pelvis of uncertain etiology. Additional findings as described above.
[2017-12-06] MEDS: Potassium Ch 20mEq in D5-1/2NS 1,000 ML IV SCH (15:12)
[2017-12-06] MEDS: metroNIDAZOLE IV 500 mg/100 ml 500 MG/100 ML BAG IVPB SCH ×2 (15:36→22:06)
--- NOTE | 2017-12-06 19:04 | CP.PCM.CON ---
History of Present Illness - History of Present Illness History of Present Illness: Surgery: Dr. Medrano CC: Abd pain HPI: 77F w. pmh of HTN, JOLENE, depression, anxiety, and recent spinal fusion on w. Dr. Eldridge presents to ED with abd pain N/V/D. Pt states that she was taking percocet and oxycontin for post-op pain and became constipated for the past 4 days. She was give large amounts of stool softeners at rehab facility during this time period. Starting today she began to experience diffuse abd pain , abd distension, and multiple episodes of N/V/D, non-bloody. She denies F/C. CT scan in ED showed enteritis vs SBO. When pt was examined, she states that her pain has improved from earlier in the day. PMH: See above PSH: Tubal ligation, appendectomy, spinal fusion, L TKA Meds: MAR reviewed ALL: Vanco Social: No ETOH/tobacco/drugs Fhx: non-contributory Review of Systems - Review of Systems All systems: reviewed and no additional remarkable complaints except (HPI) Past Patient History - Infectious Disease Hx of Infectious Diseases: None - Tetanus Immunizations Tetanus Immunization: Unknown - Past Medical History & Family History Past Medical History?: Yes - Past Social History Smoking Status: Never Smoked - CARDIAC Hx Hypercholesterolemia: Yes Hx Hypertension: Yes Hx Peripheral Edema: Yes - PULMONARY Hx Sleep Apnea: Yes (has c-pap at home not using. being assessed for a different device) - NEUROLOGICAL Hx Neurological Disorder: Yes Hx Dizziness: Yes - HEENT Hx HEENT Problems: Yes Hx Cataracts: Yes (BILAT IOL) - RENAL Hx Chronic Kidney Disease: No - ENDOCRINE/METABOLIC Hx Endocrine Disorders: No - HEMATOLOGICAL/ONCOLOGICAL Hx Blood Disorders: No - INTEGUMENTARY Hx Dermatological Problems: No - MUSCULOSKELETAL/RHEUMATOLOGICAL Hx Falls: Yes - GASTROINTESTINAL Hx Gastrointestinal Disorders: Yes Hx Gastroesophageal Reflux: Yes - GENITOURINARY/GYNECOLOGICAL Hx Genitourinary Disorders: Yes (URINARY FREQUENCY UTERINE PROLAPSE) - PSYCHIATRIC Hx Substance Use: No - SURGICAL HISTORY Hx Appendectomy: Yes - ANESTHESIA Hx Anesthesia: Yes Hx Anesthesia Reactions: No Hx Malignant Hyperthermia: No Meds Allergies/Adverse Reactions: Allergies Allergy/AdvReac Type Severity Reaction Status Date / Time vancomycin Allergy ANAPHYLAXIS Verified 12/06/17 08:36 - Medications Medications: Current Medications Enoxaparin Sodium (Lovenox) 40 mg SC DAILY [facility] Ceftriaxone Sodium 1 gm/ (Sodium Chloride) 100 mls @ 100 mls/hr IVPB DAILY [facility] PRN Reason: Protocol Last Admin: 12/06/17 14:26 Dose: 100 mls/hr Potassium Chloride/Dextrose/Sod Cl (Potassium Chl 20 Meq In D5-1/2ns) 1,000 mls @ 100 mls/hr IV .Q10H [facility] Last Admin: 12/06/17 15:12 Dose: 100 mls/hr Metronidazole (Flagyl) 500 mg in 100 mls @ 100 mls/hr IVPB Q8H [facility] PRN Reason: Protocol Last Admin: 12/06/17 15:36 Dose: 100 mls/hr Physical Exam - Constitutional Appears: Non-toxic, No Acute Distress - Head Exam Head Exam: ATRAUMATIC, NORMOCEPHALIC - Eye Exam Eye Exam: EOMI - ENT Exam ENT Exam: Mucous Membranes Moist - Respiratory Exam Respiratory Exam: NORMAL BREATHING PATTERN. absent: Accessory Muscle Use, Respiratory Distress - GI/Abdominal Exam GI & Abdominal Exam: Distended, Soft, Tenderness. absent: Firm, Guarding, Rebound, Rigid - Extremities Exam Extremities exam: Negative for: calf tenderness, pedal edema - Neurological Exam Neurological exam: Alert, Oriented x3 - Psychiatric Exam Psychiatric exam: Normal Affect, Normal Mood - Skin Skin Exam: Dry, Warm Results - Vital Signs Recent Vital Signs: Last Vital Signs Temp 99.1 F 12/06/17 17:05 Pulse 89 12/06/17 17:05 Resp 20 12/06/17 17:05 BP 170/58 H 12/06/17 17:05 Pulse Ox 99 12/06/17 17:57 - Labs Result Diagrams: 12/06/17 10:17 12/06/17 10:17 Labs: Laboratory Results - last 24 hr 12/06/17 12/06/17 12/06/17 09:00 10:17 10:17 WBC 16.9 H D RBC 3.15 L Hgb 9.1 L Hct 27.3 L MCV 86.7 D MCH 29.0 MCHC 33.5 RDW 13.5 Plt Count 469 H D MPV 7.7 Neut % (Auto) 95.6 H Lymph % (Auto) 1.8 L Warren % (Auto) 2.2 Eos % (Auto) 0.2 Baso % (Auto) 0.2 Neut # (Auto) 16.2 H Lymph # (Auto) 0.3 L [place] # (Auto) 0.4 Eos # (Auto) 0.0 Baso # (Auto) 0.0 Neutrophils % (Manual) 89 H Band Neutrophils % 7 H Lymphocytes % (Manual) 2 L Monocytes % (Manual) 2 Platelet Estimate Slightly increased H Large Platelets Present Hypochromasia (manual) Slight Basophilic Stippling Slight Sodium 127 L Potassium 3.5 L Chloride 84 L Carbon Dioxide 35 H Anion Gap 13 BUN 13 Creatinine 0.6 L Est GFR ( Amer) > 60 Est GFR (Non-Af Amer) > 60 Random Glucose 116 H Lactic Acid Calcium 9.8 Total Bilirubin 0.5 AST 28 ALT 24 Alkaline Phosphatase 93 Total Protein 6.5 Albumin 3.4 L D Globulin 3.1 Albumin/Globulin Ratio 1.1 Lipase 23 Urine Color Yellow Urine Clarity Clear Urine pH 6.0 Ur Specific [place] 1.013 Urine Protein Negative Urine Glucose (UA) Normal Urine Ketones Trace Urine Blood Negative Urine Nitrate Negative Urine Bilirubin Negative Urine Urobilinogen Normal Ur Leukocyte Esterase Neg Urine WBC (Auto) 3 Urine RBC (Auto) < 1 Ur Squamous Epith Cells < 1 Urine Bacteria Rare 12/06/17 10:17 WBC RBC Hgb Hct MCV MCH MCHC RDW Plt Count MPV Neut % (Auto) Lymph % (Auto) Warren % (Auto) Eos % (Auto) Baso % (Auto) Neut # (Auto) Lymph # (Auto) Warren # (Auto) Eos # (Auto) Baso # (Auto) Neutrophils % (Manual) Band Neutrophils % Lymphocytes % (Manual) Monocytes % (Manual) Platelet Estimate Large Platelets Hypochromasia (manual) Basophilic Stippling Sodium Potassium Chloride Carbon Dioxide Anion Gap BUN Creatinine Est GFR ( Amer) Est GFR (Non-Af Amer) Random Glucose Lactic Acid 1.0 Calcium Total Bilirubin AST ALT Alkaline Phosphatase Total Protein Albumin Globulin Albumin/Globulin Ratio Lipase Urine Color Urine Clarity Urine pH Ur Specific [place] Urine Protein Urine Glucose (UA) Urine Ketones Urine Blood Urine Nitrate Urine Bilirubin Urine Urobilinogen Ur Leukocyte Esterase Urine WBC (Auto) Urine RBC (Auto) Ur Squamous Epith Cells Urine Bacteria - Imaging and Cardiology CT scan - abdomen Status: Image reviewed by me, Report reviewed by me Assessment & Plan - Assessment and Plan (Free Text) Assessment: 77F wIram abd pain 2/2 SBO vs enteritis -NPO -IVF -abx -serial abd exams -will place NGT if sxs worsen -no surgical intervention at this time -d/w attending Zemaitis PGY4
[2017-12-06] MEDS: Metoprolol Succinate 25 mg XL Tab PO SCH (21:49)
[2017-12-07] MEDS: Potassium Ch 20mEq in D5-1/2NS 1,000 ML IV SCH ×4 (00:30→21:47)
[2017-12-07] MEDS: metroNIDAZOLE IV 500 mg/100 ml 500 MG/100 ML BAG IVPB SCH (06:08)
[2017-12-07 08:07] LABS: BASO # 0.1 K/uL (0.0-0.2); BASO % 0.9 % (0.0-2.0); EOS # 0.7 K/uL (0.0-0.7); EOS % 8.1 % (0.0-4.0); HEMOGLOBIN 7.8 g/dL (11.0-16.0); LYMPH # 0.8 K/uL (1.0-4.3); LYMPH % 9.4 % (20.0-40.0); MEAN CORPUSCULAR HEMOGLOBIN 29.5 pg (27.0-31.0); MEAN CORPUSCULAR HGB CONC 33.9 g/dL (33.0-37.0); MEAN PLATELET VOLUME 7.9 fL (7.2-11.7); MONO # 0.5 K/uL (0.0-0.8); MONO % 6.5 % (0.0-10.0); NEUT # 6.3 K/uL (1.8-7.0); NEUT % 75.1 % (50.0-75.0); PLATELET COUNT 407 K/uL (130-400); RBC 2.66 Mil/uL (3.80-5.20); RED CELL DISTRIBUTION WIDTH 13.7 % (11.5-14.5)
[2017-12-07 08:11] LABS: WHITE BLOOD COUNT 8.3 K/uL (4.8-10.8)
[2017-12-07 08:17] LABS: BLOOD UREA NITROGEN 7 mg/dL (7-17); CALCIUM 8.6 mg/dl (8.6-10.4); GFR AFRICAN-AMERICAN > 60; GFR NON-AFRICAN AMERICAN > 60
--- NOTE | 2017-12-07 08:30 | CP.PCM.PN ---
Subjective - Date & Time of Evaluation Date of Evaluation: 12/07/17 Time of Evaluation: 08:29 - Subjective Subjective: Surgery: Dr. Medrano Pt seen and examined. Pain improved. No N/V/D. Pt would like to try CLD. Objective - Vital Signs/Intake and Output Vital Signs (last 24 hours): Temp Pulse Resp BP Pulse Ox 98.8 F 78 20 142/77 95 12/07/17 08:22 12/07/17 08:22 12/07/17 08:22 12/07/17 08:22 12/07/17 08:22 Intake and Output: 12/07/17 12/07/17 06:59 18:59 Intake Total 550 800 Output Total 300 Balance 250 800 - Medications Medications: Current Medications Enoxaparin Sodium (Lovenox) 40 mg SC DAILY [facility] Ceftriaxone Sodium 1 gm/ (Sodium Chloride) 100 mls @ 100 mls/hr IVPB DAILY [facility] PRN Reason: Protocol Last Admin: 12/06/17 14:26 Dose: 100 mls/hr Potassium Chloride/Dextrose/Sod Cl (Potassium Chl 20 Meq In D5-1/2ns) 1,000 mls @ 100 mls/hr IV .Q10H [facility] Last Admin: 12/07/17 02:34 Dose: 100 mls/hr Metronidazole (Flagyl) 500 mg in 100 mls @ 100 mls/hr IVPB Q8H [facility] PRN Reason: Protocol Last Admin: 12/07/17 06:08 Dose: 100 mls/hr Lactulose (Enulose) 20 gm PO HS PRN PRN Reason: Constipation Losartan Potassium (Cozaar) 100 mg PO DAILY [facility] Magnesium Hydroxide (Milk Of Magnesia) 30 ml PO Q6H [facility]N PRN Reason: Constipation Metoprolol Succinate (Toprol Xl) 25 mg PO HS [facility] Last Admin: 12/06/17 21:49 Dose: 25 mg Montelukast Sodium (Singulair) 10 mg PO HS [facility] Last Admin: 12/06/17 21:49 Dose: 10 mg Morphine Sulfate (Morphine) 2 mg IV Q4 PRN PRN Reason: Pain, moderate (4-7) Last Admin: 12/07/17 02:29 Dose: 2 mg Multivitamins (Hexavitamin) 1 tab PO DAILY [facility] Rosuvastatin Calcium (Crestor) 5 mg PO HS [facility] Last Admin: 12/06/17 21:49 Dose: 5 mg - Labs Labs: 12/07/17 07:52 12/07/17 07:52 - Constitutional Appears: Non-toxic, No Acute Distress - Head Exam Head Exam: ATRAUMATIC, NORMOCEPHALIC - Eye Exam Eye Exam: EOMI - ENT Exam ENT Exam: Mucous Membranes Moist - Neck Exam Neck Exam: Full ROM - Respiratory Exam Respiratory Exam: NORMAL BREATHING PATTERN. absent: Accessory Muscle Use, Respiratory Distress - GI/Abdominal Exam GI & Abdominal Exam: Soft. absent: Distended, Firm, Guarding, Rigid, Tenderness , Rebound - Extremities Exam Extremities Exam: absent: Calf Tenderness, Pedal Edema - Neurological Exam Neurological Exam: Alert, Awake, Oriented x3 Assessment and Plan - Assessment and Plan (Free Text) Assessment: 77F w. abd pain 2/2 SBO vs enteritis, improving -will start CLD, ADAT -c/w IVF and abx -serial abd exams -d/w attending Zefabiitis PGY4
[2017-12-07] MEDS: Magnesium Hydroxide Susp 30 ml UD PO PRN (08:53)
[2017-12-07] MEDS: Multiple Vitamins Tab PO SCH (09:19)
[2017-12-07] MEDS: Enoxaparin 40 mg Syringe SC SCH (09:19)
[2017-12-07 09:31] LABS: BANDS 4 % (0-2); EOSINOPHIL 9 % (0-4); LYMPHOCYTE 8 % (20-40); MONOCYTE 6 % (0-10); NEUTROPHIL 73 % (50-75); PLATELET ESTIMATE NORMAL (NORMAL); TOTAL CELLS COUNTED 100
[2017-12-07 09:32] LABS: ANISOCYTOSIS SLIGHT; HYPOCHROMIC SLIGHT; LARGE PLATELETS PRESENT; POLYCHROMIC SLIGHT; TOXIC GRANULATION PRESENT
[2017-12-07] MEDS ORDERED: Potassium Chloride 20 mEq/15 ml LIQ UD PO STA (10:36)
[2017-12-07] MEDS: Potassium Chloride 10 mEq ER Tab PO SCH (14:22)
--- NOTE | 2017-12-07 20:54 | CP.PCM.HP ---
History of Present Illness - History of Present Illness History of Present Illness: CC: Abd pain, vomitting blood HPI: 77 F w. pmh of HTN, JOLENE, depression, anxiety, and recent spinal fusion on 11/[address] Eldridge discharged to [facility] presents to ED with abd pain N/V/D. Pt states that she was taking percocet and oxycontin for post- op pain and became constipated for the past 4 days. She was give large amounts of stool softeners at rehab facility during this time period. Starting today she began to experience diffuse abd pain, abd distension, and multiple episodes of N/V/D, non-bloody. She denies F/C. CT scan in ED showed enteritis vs SBO. When pt was examined, she states that her pain has improved from earlier in the day. PMH: See above PSH: Tubal ligation, appendectomy, spinal fusion, L TKA Meds: MAR reviewed ALL: Vanco Social: No ETOH/tobacco/drugs Fhx: non-contributory Present on Admission - Present on Admission Any Indicators Present on Admission: Yes Review of Systems - Review of Systems Systems not reviewed;Unavailable: Acuity of Condition - Constitutional Constitutional: Anorexia, Fatigue, Lethargy, Malaise, Weakness - EENT Eyes: absent: As Per HPI, Blind Spots, Blurred Vision, Change in Vision, Decreased Night Vision, Diplopia, Discharge, Dry Eye, Exophthalmos, Floaters, Irritation, Itchy Eyes, Loss of Peripheral Vision, Pain, Photophobia, Requires Corrective Lenses, Sees Flashes, Spots in Vision, Tunnel Vision, Other Visual Disturbances, Loss of Vision, Other Ears: absent: As Per HPI, Decreased Hearing, Ear Discharge, Ear Pain, Tinnitus, Abnormal Hearing, Disequilibrium, Dizziness, Other Nose/Mouth/Throat: absent: As Per HPI, Epistaxis, Nasal Congestion, Nasal Discharge, Nasal Obstruction, Nasal Trauma, Nose Pain, Post Nasal Drip, Sinus Pain, Sinus Pressure, Bleeding Gums, Change in Voice, Dental Pain, Dry Mouth, Dysphagia, Halitosis, Hoarsness, Lip Swelling, Mouth Lesions, Mouth Pain, Odynophagia, Sore Throat, Throat Swelling, Tongue Swelling, Facial Pain, Neck Pain, Neck Mass, Other - Cardiovascular Cardiovascular: Chest Pain, Dyspnea - Respiratory Respiratory: Hemoptysis, Dyspnea on Exertion - Gastrointestinal Gastrointestinal: Abdominal Pain, Hematemesis, Nausea - Genitourinary Genitourinary: absent: As Per HPI, Change in Urinary Stream, Difficulty Urinating, Dysuria, Flank Pain, Hematuria, Pyuria, Nocturia, Urinary Incontinence, Urinary Frequency, Urinary Hesitance, Urinary Urgency, Voiding Freq/Small Amts, Freq UTI, Hx Renal/Bladder Calculi, Hx /Renal Surgery, Bladder Distension, Other - Musculoskeletal Musculoskeletal: Back Pain, Muscle Weakness, Stiffness - Integumentary Integumentary: absent: As Per HPI, Acne, Alopecia, Bleeding Lesions, Change in Hair, Change in Nails, Change in Pigmentation, Changing Lesions, Dry Skin, Erythema, Furuncle, Hirsutism, Lesions, New Lesions, Non-Healing Lesions, Photosensitivity, Pruritus, Rash, Skin Pain, Skin Ulcer, Sores, Striae, Swelling , Unusual Bruising, Wounds, Jaundice, Other Past Patient History - Infectious Disease Hx of Infectious Diseases: None - Tetanus Immunizations Tetanus Immunization: Unknown - Past Medical History & Family History Past Medical History?: Yes - Past Social History Smoking Status: Never Smoked - CARDIAC Hx Hypercholesterolemia: Yes Hx Hypertension: Yes Hx Peripheral Edema: Yes - PULMONARY Hx Sleep Apnea: Yes (has c-pap at home not using. being assessed for a different device) - NEUROLOGICAL Hx Neurological Disorder: Yes Hx Dizziness: Yes - HEENT Hx HEENT Problems: Yes Hx Cataracts: Yes (BILAT IOL) - RENAL Hx Chronic Kidney Disease: No - ENDOCRINE/METABOLIC Hx Endocrine Disorders: No - HEMATOLOGICAL/ONCOLOGICAL Hx Blood Disorders: No - INTEGUMENTARY Hx Dermatological Problems: No - MUSCULOSKELETAL/RHEUMATOLOGICAL Hx Falls: Yes - GASTROINTESTINAL Hx Gastrointestinal Disorders: Yes Hx Gastroesophageal Reflux: Yes - GENITOURINARY/GYNECOLOGICAL Hx Genitourinary Disorders: Yes (URINARY FREQUENCY UTERINE PROLAPSE) - PSYCHIATRIC Hx Substance Use: No - SURGICAL HISTORY Hx Appendectomy: Yes - ANESTHESIA Hx Anesthesia: Yes Hx Anesthesia Reactions: No Hx Malignant Hyperthermia: No Meds Allergies/Adverse Reactions: Allergies Allergy/AdvReac Type Severity Reaction Status Date / Time vancomycin Allergy ANAPHYLAXIS Verified 12/06/17 08:36 Physical Exam - Constitutional Appears: No Acute Distress - Head Exam Head Exam: ATRAUMATIC, NORMAL INSPECTION, NORMOCEPHALIC - Eye Exam Eye Exam: EOMI, Normal appearance, PERRL Pupil Exam: NORMAL ACCOMODATION, PERRL - ENT Exam ENT Exam: Mucous Membranes Moist, Normal Exam - Respiratory Exam Respiratory Exam: Clear to Auscultation Bilateral, NORMAL BREATHING PATTERN - Cardiovascular Exam Cardiovascular Exam: REGULAR RHYTHM, +S1, +S2 - GI/Abdominal Exam GI & Abdominal Exam: Distended, Hypoactive Bowel Sounds - Rectal Exam Additional comments: no masses no blood - Psychiatric Exam Psychiatric exam: Normal Affect, Normal Mood - Skin Skin Exam: Dry, Intact, Normal Color, Warm Results - Vital Signs Recent Vital Signs: Last Vital Signs Temp 98.6 F 12/07/17 16:00 Pulse 77 12/07/17 16:00 Resp 20 12/07/17 16:00 BP 172/83 H 12/07/17 16:00 Pulse Ox 100 12/07/17 16:00 - Labs Result Diagrams: 12/07/17 07:52 12/07/17 07:52 Labs: Laboratory Results - last 24 hr 12/07/17 12/07/17 07:52 07:52 WBC 8.3 D RBC 2.66 L Hgb 7.8 L Hct 23.1 L MCV 87.0 MCH 29.5 MCHC 33.9 RDW 13.7 Plt Count 407 H MPV 7.9 Neut % (Auto) 75.1 H Lymph % (Auto) 9.4 L [place] % (Auto) 6.5 Eos % (Auto) 8.1 H Baso % (Auto) 0.9 Neut # (Auto) 6.3 Lymph # (Auto) 0.8 L [place] # (Auto) 0.5 Eos # (Auto) 0.7 Baso # (Auto) 0.1 Neutrophils % (Manual) 73 Band Neutrophils % 4 H Lymphocytes % (Manual) 8 L Monocytes % (Manual) 6 Eosinophils % (Manual) 9 H Toxic Granulation Present Platelet Estimate Normal Large Platelets Present Polychromasia Slight Hypochromasia (manual) Slight Anisocytosis (manual) Slight Sodium 130 L Potassium 3.0 L Chloride 93 L Carbon Dioxide 32 H Anion Gap 8 L BUN 7 Creatinine 0.5 L Est GFR ( Amer) > 60 Est GFR (Non-Af Amer) > 60 Random Glucose 95 Calcium 8.6 Assessment & Plan (1) Small bowel obstruction Assessment and Plan: GI consult Status: Suspected (2) Abdominal pain Status: Acute (3) HLD (hyperlipidemia) Status: Acute (4) HTN (hypertension) Status: Acute (5) S/P spinal surgery Status: Acute (6) Dehydration Assessment and Plan: IV fluids pepcid Status: Acute (7) Hypokalemia Status: Acute (8) Hyponatremia Status: Acute
--- NOTE | 2017-12-07 21:03 | CP.PCM.PN ---
Subjective - Date & Time of Evaluation Date of Evaluation: 12/07/17 Time of Evaluation: 19:00 - Subjective Subjective: Pt seen and examined. Pain improved. No N/V/D. Pt would like to try CLD. Objective - Vital Signs/Intake and Output Vital Signs (last 24 hours): Temp Pulse Resp BP Pulse Ox 98.6 F 77 20 172/83 H 100 12/07/17 16:00 12/07/17 16:00 12/07/17 16:00 12/07/17 16:00 12/07/17 16:00 Intake and Output: 12/07/17 12/08/17 18:59 06:59 Intake Total 1460 Output Total 2 Balance 1458 - Medications Medications: Current Medications Cephalexin Monohydrate (Keflex) 500 mg PO Q8 [facility] PRN Reason: Protocol Last Admin: 12/07/17 14:06 Dose: 500 mg Enoxaparin Sodium (Lovenox) 40 mg SC DAILY [facility] Last Admin: 12/07/17 09:19 Dose: 40 mg Famotidine (Pepcid) 20 mg IVP Q12 [facility] Potassium Chloride/Dextrose/Sod Cl (Potassium Chl 20 Meq In D5-1/2ns) 1,000 mls @ 100 mls/hr IV .Q10H [facility] Last Admin: 12/07/17 10:31 Dose: Not Given Lactulose (Enulose) 20 gm PO HS PRN PRN Reason: Constipation Losartan Potassium (Cozaar) 100 mg PO DAILY [facility] Last Admin: 12/07/17 09:19 Dose: 100 mg Magnesium Hydroxide (Milk Of Magnesia) 30 ml PO Q6H [facility]N PRN Reason: Constipation Last Admin: 12/07/17 08:53 Dose: 30 ml Metoprolol Succinate (Toprol Xl) 25 mg PO [facility] Last Admin: 12/06/17 21:49 Dose: 25 mg Metronidazole (Flagyl) 500 mg PO Q8 [facility] PRN Reason: Protocol Last Admin: 12/07/17 14:06 Dose: 500 mg Montelukast Sodium (Singulair) 10 mg PO [facility] Last Admin: 12/06/17 21:49 Dose: 10 mg Morphine Sulfate (Morphine) 2 mg SC Q4 PRN PRN Reason: Pain, moderate (4-7) Last Admin: 12/07/17 14:06 Dose: 2 mg Multivitamins (Hexavitamin) 1 tab PO DAILY [facility] Last Admin: 12/07/17 09:19 Dose: 1 tab Potassium Chloride (Klor-Con 10) 40 meq PO BRK [facility] Last Admin: 12/07/17 14:22 Dose: 40 meq Rosuvastatin Calcium (Crestor) 5 mg PO HS [facility] Last Admin: 12/06/17 21:49 Dose: 5 mg - Labs Labs: 12/07/17 07:52 12/07/17 07:52 Assessment and Plan (1) Small bowel obstruction Status: Suspected (2) Abdominal pain Status: Acute (3) HLD (hyperlipidemia) Status: Acute (4) HTN (hypertension) Status: Acute (5) S/P spinal surgery Status: Acute (6) Dehydration Status: Acute (7) Hypokalemia Status: Acute (8) Hyponatremia Status: Acute
[2017-12-07] MEDS: Metoprolol Succinate 25 mg XL Tab PO SCH (21:38)
[2017-12-08] MEDS: Magnesium Hydroxide Susp 30 ml UD PO PRN (03:14)
[2017-12-08] MEDS: Potassium Ch 20mEq in D5-1/2NS 1,000 ML IV SCH (06:23)
[2017-12-08] MEDS: Potassium Chloride 10 mEq ER Tab PO SCH (08:56)
[2017-12-08] MEDS: Multiple Vitamins Tab PO SCH (10:22)
[2017-12-08] MEDS: Enoxaparin 40 mg Syringe SC SCH (11:00)
--- NOTE | 2017-12-08 11:45 | CP.PCM.PN ---
Subjective - Date & Time of Evaluation Date of Evaluation: 12/08/17 Time of Evaluation: 11:42 - Subjective Subjective: General Surgery Progress Note for Dr. Medrano Patient was seen and examined today at bedside in no acute distress. Nurse reports no overnight events. Patient reports additional BM overnight and multiple occurrences of flatus. Tolerating diet well. Denies n/v, f/c, no onset pain. Pain is controlled on morphine. Objective - Vital Signs/Intake and Output Vital Signs (last 24 hours): Temp Pulse Resp BP Pulse Ox 98.4 F 85 20 151/73 H 98 12/08/17 08:28 12/08/17 08:28 12/08/17 08:28 12/08/17 08:28 12/08/17 08:28 Intake and Output: 12/08/17 12/08/17 06:59 18:59 Intake Total 400 240 Balance 400 240 - Medications Medications: Current Medications Cephalexin Monohydrate (Keflex) 500 mg PO Q8 [facility] PRN Reason: Protocol Last Admin: 12/08/17 05:53 Dose: 500 mg Enoxaparin Sodium (Lovenox) 40 mg SC DAILY [facility] Last Admin: 12/07/17 09:19 Dose: 40 mg Famotidine (Pepcid) 20 mg PO Q12 [facility] Last Admin: 12/08/17 10:22 Dose: 20 mg Potassium Chloride/Dextrose/Sod Cl (Potassium Chl 20 Meq In D5-1/2ns) 1,000 mls @ 100 mls/hr IV .Q10H [facility] Last Admin: 12/08/17 06:23 Dose: Not Given Lactulose (Enulose) 20 gm PO HS PRN PRN Reason: Constipation Losartan Potassium (Cozaar) 100 mg PO DAILY [facility] Last Admin: 12/08/17 10:22 Dose: 100 mg Magnesium Hydroxide (Milk Of Magnesia) 30 ml PO Q6H [facility] PRN Reason: Constipation Last Admin: 12/08/17 03:14 Dose: 30 ml Metoprolol Succinate (Toprol Xl) 25 mg PO [facility] Last Admin: 12/07/17 21:38 Dose: 25 mg Metronidazole (Flagyl) 500 mg PO Q8 [facility] PRN Reason: Protocol Last Admin: 12/08/17 05:53 Dose: 500 mg Montelukast Sodium (Singulair) 10 mg PO [facility] Last Admin: 12/07/17 21:37 Dose: 10 mg Morphine Sulfate (Morphine) 2 mg SC Q4 PRN PRN Reason: Pain, moderate (4-7) Last Admin: 12/08/17 08:50 Dose: 2 mg Multivitamins (Hexavitamin) 1 tab PO DAILY [facility] Last Admin: 12/08/17 10:22 Dose: 1 tab Potassium Chloride (Klor-Con 10) 40 meq PO BRK [facility] Last Admin: 12/08/17 08:56 Dose: 40 meq Rosuvastatin Calcium (Crestor) 5 mg PO HS [facility] Last Admin: 12/07/17 21:37 Dose: 5 mg - Labs Labs: 12/07/17 07:52 12/07/17 07:52 - Constitutional Appears: Non-toxic, No Acute Distress - Head Exam Head Exam: ATRAUMATIC, NORMOCEPHALIC - Eye Exam Eye Exam: EOMI, Normal appearance - ENT Exam ENT Exam: Mucous Membranes Moist, Normal Exam - Respiratory Exam Respiratory Exam: NORMAL BREATHING PATTERN. absent: Rales, Rhonchi - Cardiovascular Exam Cardiovascular Exam: +S1, +S2 - GI/Abdominal Exam GI & Abdominal Exam: Distended, Soft. absent: Guarding, Rigid, Tenderness - Extremities Exam Extremities Exam: Full ROM, Normal Capillary Refill - Back Exam Additional comments: spinal surgery dressings in place, c/d/i - Neurological Exam Neurological Exam: Alert, Awake, Oriented x3 - Psychiatric Exam Psychiatric exam: Normal Affect, Normal Mood - Skin Skin Exam: Dry, Intact, Normal Color, Warm Assessment and Plan - Assessment and Plan (Free Text) Assessment: 77yoF with abdominal pain 2/2 SBO vs enteritis, improving Plan: - tolerating soft diet well - replete electrolytes as needed - continue IVF and abx - serial abdominal exams - further recs per Dr. Marcela Weldon PGY1
[2017-12-08 12:33] LABS: BLOOD UREA NITROGEN 7 mg/dL (7-17); CALCIUM 9.1 mg/dl (8.6-10.4); GFR AFRICAN-AMERICAN > 60; GFR NON-AFRICAN AMERICAN > 60
[2017-12-08 14:03] LABS: BASO % 0.3 % (0.0-2.0); EOS # 0.6 K/uL (0.0-0.7); EOS % 5.8 % (0.0-4.0); HEMOGLOBIN 8.4 g/dL (11.0-16.0); LYMPH # 0.9 K/uL (1.0-4.3); LYMPH % 8.3 % (20.0-40.0); MEAN CELL VOLUME 86.8 fL (81.0-99.0); MEAN CORPUSCULAR HEMOGLOBIN 29.1 pg (27.0-31.0); MEAN CORPUSCULAR HGB CONC 33.5 g/dL (33.0-37.0); MEAN PLATELET VOLUME 7.8 fL (7.2-11.7); MONO # 0.7 K/uL (0.0-0.8); NEUT # 8.8 K/uL (1.8-7.0); NEUT % 79.6 % (50.0-75.0); PLATELET COUNT 506 K/uL (130-400); RBC 2.88 Mil/uL (3.80-5.20); RED CELL DISTRIBUTION WIDTH 13.9 % (11.5-14.5); WHITE BLOOD COUNT 11.1 K/uL (4.8-10.8)
[2017-12-08 14:46] LABS: EOSINOPHIL 5 % (0-4); LYMPHOCYTE 5 % (20-40); MONOCYTE 3 % (0-10); NEUTROPHIL 87 % (50-75); TOTAL CELLS COUNTED 100
[2017-12-08 14:47] LABS: PLATELET ESTIMATE INCREASED (NORMAL)
[2017-12-08 14:48] LABS: HYPOCHROMIC SLIGHT
--- NOTE | 2017-12-08 14:54 | PN ---
Copied To: Sravan Nunes MD Attending MD: Sravan Nunes MD DATE: 12/08/2017 LOCATION: 357, bed B. SUBJECTIVE: This is a 77-year-old female seen initially with GI consultation on 12/07/2017 as requested by the admitting MD, reexamined again today with a complaint of abdominal pain mainly in the midepigastric area and mid abdominal line with intermittent period of nausea and dyspepsia, seen by the assembler surgical garment on the case with recurrent episode recently of nausea and vomiting, severe constipation with intermittent period of shortness of breath, had a spinal surgery recently about two weeks ago. PHYSICAL EXAMINATION: GENERAL: A 77-year-old female, awake, alert, oriented, complaining still of abdominal pain with dyspepsia and nausea, had one episode of vomiting. VITAL SIGNS: Afebrile with pulse of 82, respiratory rate 20 to 22, blood pressure of 146/70. HEENT: Showed pale, dry oral mucous membrane. Nonicteric sclerae. LUNGS: Few scattered crepitation. Decreased air entry at bases. HEART: Positive S1 and S2. ABDOMEN: Soft. Bowel sounds are present. No mass or organomegaly. No rebound tenderness or guarding, but generalized tenderness. NEUROLOGIC: No reported new neurological deficits, sensory or motor. LABORATORY DATA: Most recent lab results showed subsequent drop of hemoglobin to 7.8, hematocrit 23.1 with leukocytosis with low sodium, low potassium and CO2 content of 32 indicative of respiratory alkalosis. Most recently, radiology study results reviewed including CAT scan of the chest, abdomen and pelvis with cardiomegaly and mild pulmonary congestion. Rest of the official report reviewed with dilated right colon and most distal small bowel. No evidence of active bleeding. IMPRESSION: 1. Re-exacerbation of peptic ulcer disease. 2. Abnormal CAT scan of the abdomen and pelvis with episodes of severe constipation including also a history of colon polyp. 3. Recent history of a spinal surgery. 4. Known history of hypertension, hyperlipidemia, osteopenia with reported sleep apnea. 5. Chest discomfort had been most likely noncardiac. SUGGESTIONS: 1. Agree with your plan. 2. Schedule the patient for EGD at a.m. due to the subsequent drop of hemoglobin and hematocrit. 3. Cancer markers. 4. The patient will need followup colonoscopy due to her subsequent drop of hemoglobin and hematocrit as well as known history of colon polyp when she is more stable clinically. 5. Further recommendation to follow. Sravan Nunes MD
[2017-12-08] MEDS: Sodium Chloride 0.9% 1,000 ML IV SCH (16:25)
[2017-12-08] MEDS ORDERED: metroNIDAZOLE IV 500 mg/100 ml 500 MG/100 ML BAG IVPB SCH (18:00)
--- NOTE | 2017-12-08 20:54 | CP.PCM.PN ---
Objective - Vital Signs/Intake and Output Vital Signs (last 24 hours): Temp Pulse Resp BP Pulse Ox 98.4 F 87 20 174/83 H 98 12/08/17 16:00 12/08/17 16:00 12/08/17 16:00 12/08/17 16:00 12/08/17 16:00 Intake and Output: 12/08/17 12/09/17 18:59 06:59 Intake Total 520 Balance 520 - Medications Medications: Current Medications Enoxaparin Sodium (Lovenox) 40 mg SC DAILY [facility] Last Admin: 12/08/17 11:00 Dose: 40 mg Famotidine (Pepcid) 20 mg PO Q12 [facility] Last Admin: 12/08/17 10:22 Dose: 20 mg Sodium Chloride (Sodium Chloride 0.9%) 1,000 mls @ 80 mls/hr IV .[id number] [facility] Last Admin: 12/08/17 16:25 Dose: 80 mls/hr Ceftriaxone Sodium 1 gm/ (Sodium Chloride) 100 mls @ 100 mls/hr IVPB DAILY [facility] PRN Reason: Protocol Metronidazole (Flagyl) 500 mg in 100 mls @ 100 mls/hr IVPB Q8 [facility] PRN Reason: Protocol Lactulose (Enulose) 20 gm PO HS PRN PRN Reason: Constipation Losartan Potassium (Cozaar) 100 mg PO DAILY [facility] Last Admin: 12/08/17 10:22 Dose: 100 mg Magnesium Hydroxide (Milk Of Magnesia) 30 ml PO Q6H PRN PRN Reason: Constipation Last Admin: 12/08/17 03:14 Dose: 30 ml Metoprolol Succinate (Toprol Xl) 25 mg PO HS [facility] Last Admin: 12/07/17 21:38 Dose: 25 mg Montelukast Sodium (Singulair) 10 mg PO HS [facility] Last Admin: 12/07/17 21:37 Dose: 10 mg Morphine Sulfate (Morphine) 2 mg IVP Q4 PRN PRN Reason: Pain, moderate (4-7) Multivitamins (Hexavitamin) 1 tab PO DAILY [facility] Last Admin: 12/08/17 10:22 Dose: 1 tab Potassium Chloride (Klor-Con 10) 40 meq PO BRK [facility] Last Admin: 12/08/17 08:56 Dose: 40 meq Rosuvastatin Calcium (Crestor) 5 mg PO HS [facility] Last Admin: 12/07/17 21:37 Dose: 5 mg - Labs Labs: 12/08/17 13:53 12/08/17 11:48 Assessment and Plan (1) Small bowel obstruction Status: Suspected (2) Abdominal pain Status: Acute (3) HLD (hyperlipidemia) Status: Acute (4) HTN (hypertension) Status: Acute (5) S/P spinal surgery Status: Acute (6) Dehydration Status: Acute (7) Hypokalemia Status: Acute (8) Hyponatremia Status: Acute
[2017-12-08] MEDS: Metoprolol Succinate 25 mg XL Tab PO SCH (21:11)
[2017-12-08] MEDS: metroNIDAZOLE IV 500 mg/100 ml 500 MG/100 ML BAG IVPB SCH (21:14)
[2017-12-09] MEDS: metroNIDAZOLE IV 500 mg/100 ml 500 MG/100 ML BAG IVPB SCH ×3 (05:38→21:50)
[2017-12-09] MEDS: Sodium Chloride 0.9% 1,000 ML IV SCH ×2 (05:46→17:34)
[2017-12-09 07:13] LABS: INR 1.2; PROTHROMBIN TIME 12.9 SECONDS (9.7-12.2)
[2017-12-09 07:19] LABS: BASO # 0.1 K/uL (0.0-0.2); BASO % 0.7 % (0.0-2.0); EOS # 0.9 K/uL (0.0-0.7); EOS % 7.6 % (0.0-4.0); HEMOGLOBIN 7.7 g/dL (11.0-16.0); LYMPH # 0.8 K/uL (1.0-4.3); LYMPH % 7.2 % (20.0-40.0); MEAN CELL VOLUME 86.2 fL (81.0-99.0); MEAN CORPUSCULAR HEMOGLOBIN 28.7 pg (27.0-31.0); MEAN CORPUSCULAR HGB CONC 33.4 g/dL (33.0-37.0); MONO # 0.8 K/uL (0.0-0.8); MONO % 6.7 % (0.0-10.0); NEUT # 8.9 K/uL (1.8-7.0); NEUT % 77.8 % (50.0-75.0); PLATELET COUNT 451 K/uL (130-400); RBC 2.66 Mil/uL (3.80-5.20); RED CELL DISTRIBUTION WIDTH 13.7 % (11.5-14.5); WHITE BLOOD COUNT 11.4 K/uL (4.8-10.8)
[2017-12-09] MEDS: Potassium Chloride 10 mEq ER Tab PO SCH (08:02)
[2017-12-09 08:07] LABS: ALBUMIN 2.7 g/dL (3.5-5.0); ALT/SGPT 22 U/L (9-52); AST/SGOT 24 U/L (14-36); BLOOD UREA NITROGEN 5 mg/dL (7-17); CALCIUM 8.9 mg/dl (8.6-10.4); GFR AFRICAN-AMERICAN > 60; GFR NON-AFRICAN AMERICAN > 60
[2017-12-09 08:54] LABS: ANISOCYTOSIS SLIGHT; EOSINOPHIL 5 % (0-4); LYMPHOCYTE 8 % (20-40); MONOCYTE 4 % (0-10); NEUTROPHIL 83 % (50-75); PLATELET ESTIMATE SLIGHTLY INCREASED (NORMAL); POIKILOCYTOSIS SLIGHT; TOTAL CELLS COUNTED 100
[2017-12-09 08:55] LABS: HYPOCHROMIC SLIGHT; TARGET CELLS SLIGHT
--- NOTE | 2017-12-09 09:08 | PN ---
Copied To: Jonnie Us MD Attending MD: Jonnie Us MD DATE: 12/08/2017 SUBJECTIVE: Patient had a bowel movement. She had more than one bowel movement. She feels decreased abdominal distension. She is on clear liquid diet that she is tolerating. Occasionally she is nauseous. She denies any fever or chills. She has been seen by GI Surgery and her H and H has improved from 7.8 to 8.4. Her WBC is down. Her potassium has been corrected to 4.6. Her urinalysis is normal. Daughter on the bedside. Blood pressure is fluctuating. PHYSICAL EXAMINATION: VITAL SIGNS: Blood pressure 174/83, pulse 87, respiratory rate 20, temperature 98.4. LUNGS: Clear. No rale. No rhonchi. CARDIOVASCULAR SYSTEM: S1 and S2 regular. ABDOMEN: Bowel sounds are exaggerated and there is mild tenderness upon deep palpation. No organomegaly. ASSESSMENT: 1. Small bowel obstruction is improving. Her white blood cells down. Her hemoglobin and hematocrit is stable. She is on conservative medical management and she has bowel movements and she has bowel sounds positive. 2. Dehydration and hypokalemia, improving. 3. Hypertension. PLAN: Continue IV fluids, clear liquid diet. Follow up with GI Surgery. Blood pressure control, antibiotics and conservative medical approach. Jonnie Us MD
[2017-12-09] MEDS: Enoxaparin 40 mg Syringe SC SCH (10:40)
[2017-12-09] MEDS: Multiple Vitamins Tab PO SCH (10:40)
--- NOTE | 2017-12-09 11:00 | CP.PCM.PN ---
Subjective - Date & Time of Evaluation Date of Evaluation: 12/09/17 Time of Evaluation: 10:56 - Subjective Subjective: General Surgery Progress Note for Dr. Medrano Patient was seen and examined today at bedside in no acute distress. Nurse reports no overnight events. Patient reports BM and flatus overnight. Tolerating diet well, is on NPO for EGD in afternoon. Denies n/v, f/c, no onset pain. Pain is controlled on morphine. Objective - Vital Signs/Intake and Output Vital Signs (last 24 hours): Temp Pulse Resp BP Pulse Ox 99 F 85 20 164/84 H 97 12/09/17 08:00 12/09/17 08:00 12/09/17 08:00 12/09/17 08:00 12/09/17 08:00 Intake and Output: 12/09/17 12/09/17 06:59 18:59 Intake Total 1340 Balance 1340 - Medications Medications: Current Medications Enoxaparin Sodium (Lovenox) 40 mg SC DAILY [facility] Last Admin: 12/09/17 10:40 Dose: Not Given Famotidine (Pepcid) 20 mg PO Q12 [facility] Last Admin: 12/09/17 10:40 Dose: Not Given Sodium Chloride (Sodium Chloride 0.9%) 1,000 mls @ 80 mls/hr IV .[id number] [facility] Last Admin: 12/09/17 05:46 Dose: 80 mls/hr Ceftriaxone Sodium 1 gm/ (Sodium Chloride) 100 mls @ 100 mls/hr IVPB DAILY [facility] PRN Reason: Protocol Last Admin: 12/09/17 09:42 Dose: 100 mls/hr Metronidazole (Flagyl) 500 mg in 100 mls @ 100 mls/hr IVPB Q8 [facility] PRN Reason: Protocol Last Admin: 12/09/17 05:38 Dose: 100 mls/hr Lactulose (Enulose) 20 gm PO HS PRN PRN Reason: Constipation Losartan Potassium (Cozaar) 100 mg PO DAILY [facility] Last Admin: 12/08/17 10:22 Dose: 100 mg Magnesium Hydroxide (Milk Of Magnesia) 30 ml PO Q6H PRN PRN Reason: Constipation Last Admin: 12/08/17 03:14 Dose: 30 ml Metoprolol Succinate (Toprol Xl) 25 mg PO HS [facility] Last Admin: 12/08/17 21:11 Dose: 25 mg Montelukast Sodium (Singulair) 10 mg PO HS [facility] Last Admin: 12/08/17 21:11 Dose: 10 mg Morphine Sulfate (Morphine) 2 mg IVP Q4 PRN PRN Reason: Pain, moderate (4-7) Last Admin: 12/09/17 09:42 Dose: 2 mg Multivitamins (Hexavitamin) 1 tab PO DAILY [facility] Last Admin: 12/09/17 10:40 Dose: Not Given Potassium Chloride (Klor-Con 10) 40 meq PO BRK [facility] Last Admin: 12/09/17 08:02 Dose: Not Given Rosuvastatin Calcium (Crestor) 5 mg PO HS [facility] Last Admin: 12/08/17 21:11 Dose: 5 mg - Labs Labs: 12/09/17 06:58 12/09/17 06:58 PT 12.9 SECONDS (9.7-12.2) H 12/09/17 06:58 INR 1.2 12/09/17 06:58 - Constitutional Appears: Non-toxic, No Acute Distress - Head Exam Head Exam: ATRAUMATIC, NORMOCEPHALIC - Eye Exam Eye Exam: EOMI, Normal appearance - ENT Exam ENT Exam: Mucous Membranes Moist, Normal Exam - Respiratory Exam Respiratory Exam: NORMAL BREATHING PATTERN. absent: Rales, Respiratory Distress , Stridor - Cardiovascular Exam Cardiovascular Exam: +S1, +S2 - GI/Abdominal Exam GI & Abdominal Exam: Distended, Soft. absent: Tenderness - Neurological Exam Neurological Exam: Alert, Awake, Oriented x3 - Psychiatric Exam Psychiatric exam: Normal Affect, Normal Mood - Skin Skin Exam: Dry, Intact, Normal Color, Warm Assessment and Plan - Assessment and Plan (Free Text) Assessment: 77yoF with abdominal pain 2/2 SBO vs enteritis, improving Plan: - tolerating soft diet well, on NPO for EGD @ 1700 - continue IVF and abx - serial abdominal exams - no acute surgical intervention at this time - pending EGD findings, will sign off if benign - please reconsult if necessary - d/w Dr. Marcela Weldon PGY1
--- NOTE | 2017-12-09 13:19 | RAD ---
Date of service: 12/06/2017 PROCEDURE: Radiographs of the chest and abdomen (obstructive series) HISTORY: Abd Pain COMPARISON: No prior. TECHNIQUE: AP radiograph of the chest, with upright and supine radiographs of the abdomen. FINDINGS: CHEST: Lungs: Clear. Cardiovascular: Cardiomegaly No pulmonary vascular congestion. Extensive atherosclerotic vascular calcification and unfolding of the thoracic aorta. Thoracic aorta is prominent. This prominence is fairly similar to the 02/13/2016 chest x-ray Pleura: No pleural fluid. No pneumothorax. Other findings: None. ABDOMEN AND PELVIS: Bowel: Multiple small bowel loops are distended and the - is distension of the colon transverse and right colon segment is borderline increased. Free air: None. Bones: Thoraco lumbar spondylosis. Thoraco lumbar spinal hardware present Other findings: None. IMPRESSION: A mid to distal small bowel obstruction intermittent and/or partial high-grade needs to be considered. . And enteritis/ mild localized ileus are additional considerations. . Clinical correlation and follow-up is advised. No free air appreciated Comments: Case presented to me on this date of dictation
[2017-12-09] MEDS ORDERED: Propofol 10 mg/ml Inj (20 ML) ONE (14:03)
[2017-12-09] MEDS ORDERED: Lidocaine Hydrochloride 5 ML INJ ONE (14:03)
[2017-12-09] MEDS ORDERED: Peg-Electrolyte Oral Soln 4L (Golytely) PO ONE (15:15)
[2017-12-09] MEDS ORDERED: Bisacodyl 5mg EC Tab PO ONE (17:00)
--- NOTE | 2017-12-09 19:55 | CON ---
Copied To: Sravan Nunes MD Attending MD: Sravan Nunes MD DATE: 12/07/2017 HISTORY OF PRESENT ILLNESS: This is a 77-year-old female who was admitted to the hospital due to recurrent episodes of nausea and vomiting, change of bowel movement habit, mainly constipation with reported left-sided chest pain, without reported recent history of active bleeding, actual chest pain, shortness of breath, palpitation, chills, or fever. PAST MEDICAL HISTORY: Including but not limited to: 1. Peptic ulcer disease. 2. Colon polyps. 3. Depression. 4. Hyperlipidemia. 5. Hypertension. 6. Osteoporosis. 7. Sleep apnea. 8. Peripheral edema syndrome. 9. Status post appendectomy, status post back surgery about two weeks ago. 10. The patient's last colonoscopy was performed about four and half years ago as well as upper endoscopy. FAMILY HISTORY: Unknown. SOCIAL HISTORY: No known history of cigarette smoking or alcohol intake. MEDICATIONS: Current medications plus admission medication lists were reviewed. ALLERGIES TO MEDICATION: UNCLEAR. LABORATORY DATA: Initial blood workup at the time of the admission showed hemoglobin 9.1, hematocrit 27.3 with leukocytosis of 16.9 as well as thrombocytosis of 469 with blood glucose level of 116 with low sodium and low potassium. Chest CAT scan is done, official report is seen. PHYSICAL EXAMINATION: GENERAL: A 77-year-old female complaining of nausea with dyspepsia with recent episodes of vomiting. VITAL SIGNS: Afebrile with pulse of 92, respiratory rate 20-22, blood pressure 160/72. HEENT: Showed pale dry oral mucous membrane. Nonicteric sclerae. LYMPH NODES: No lymphadenitis or lymphadenopathy. LUNGS: Few scattered mild crepitation with decreased air entry at bases. HEART: Positive S1 and S2 with increased rate. ABDOMEN: Soft with [id number] distention with generalized tenderness. IMPRESSION: 1. Re-exacerbation of peptic ulcer disease. 2. Acute enteritis with abnormal radiology study results of the abdomen and pelvis. 3. Known history of colon polyp, without followup colonoscopy for almost five years. 4. Multiple past medical history as mentioned above. SUGGESTIONS: 1. Agree with your plan. 2. Endoscopic evaluation of the upper GI tract when the patient is more stable clinically. 3. Abdominal ultrasound. 4. Serum lipase, amylase level. 5. Guaiac all the stools daily x3. 6. The patient is scheduled to follow for upper endoscopy when she is more stable clinically, to be followed by colonoscopy due to her known history of colon polyp and due to her recurrent episodes of diarrhea. 7. Further recommendation to follow. Thank you for letting me participate in your patient's case management. Sravan Nunes MD
[2017-12-09] MEDS: Metoprolol Succinate 25 mg XL Tab PO SCH ×2 (20:12→22:02)
[2017-12-09] MEDS ORDERED: Nitroglycerin 2% Ointment Foilpak UD TOP PRN (22:04)
--- NOTE | 2017-12-09 23:43 | CP.PCM.PN ---
Objective - Vital Signs/Intake and Output Vital Signs (last 24 hours): Temp Pulse Resp BP Pulse Ox 98.8 F 92 H 20 189/94 H 100 12/09/17 21:27 12/09/17 21:27 12/09/17 21:27 12/09/17 21:27 12/09/17 14:46 Intake and Output: 12/09/17 12/10/17 18:59 06:59 Intake Total 810 0 Balance 810 0 - Medications Medications: Current Medications Enoxaparin Sodium (Lovenox) 40 mg SC DAILY [facility] Last Admin: 12/09/17 10:40 Dose: Not Given Famotidine (Pepcid) 20 mg PO Q12 [facility] Last Admin: 12/09/17 21:50 Dose: 20 mg Sodium Chloride (Sodium Chloride 0.9%) 1,000 mls @ 80 mls/hr IV .[id number] [facility] Last Admin: 12/09/17 17:34 Dose: 80 mls/hr Ceftriaxone Sodium 1 gm/ (Sodium Chloride) 100 mls @ 100 mls/hr IVPB DAILY [facility] PRN Reason: Protocol Last Admin: 12/09/17 09:42 Dose: 100 mls/hr Metronidazole (Flagyl) 500 mg in 100 mls @ 100 mls/hr IVPB Q8 [facility] PRN Reason: Protocol Last Admin: 12/09/17 21:50 Dose: Not Given Lactulose (Enulose) 20 gm PO HS PRN PRN Reason: Constipation Losartan Potassium (Cozaar) 100 mg PO DAILY [facility] Last Admin: 12/09/17 11:00 Dose: 100 mg Magnesium Hydroxide (Milk Of Magnesia) 30 ml PO Q6H PRN PRN Reason: Constipation Last Admin: 12/08/17 03:14 Dose: 30 ml Metoclopramide HCl (Reglan) 5 mg IVP Q6H [facility] Last Admin: 12/09/17 20:12 Dose: 5 mg Metoprolol Succinate (Toprol Xl) 25 mg PO HS [facility] Last Admin: 12/09/17 22:02 Dose: Not Given Montelukast Sodium (Singulair) 10 mg PO HS [facility] Last Admin: 12/09/17 21:50 Dose: 10 mg Multivitamins (Hexavitamin) 1 tab PO DAILY [facility] Last Admin: 12/09/17 10:40 Dose: Not Given Nitroglycerin (Nitro-Bid 2% Oint) 1 ea TOP Q6 PRN PRN Reason: Systolic Blood Pressure Last Admin: 12/09/17 22:22 Dose: 1 ea Oxycodone/Acetaminophen (Percocet 5/325 Mg Tab) 1 tab PO Q4H PRN PRN Reason: Pain, moderate (4-7) Stop: 12/12/17 22:10 Potassium Chloride (Klor-Con 10) 40 meq PO BRK [facility] Last Admin: 12/09/17 08:02 Dose: Not Given Rosuvastatin Calcium (Crestor) 5 mg PO HS [facility] Last Admin: 12/09/17 21:50 Dose: 5 mg - Labs Labs: 12/09/17 06:58 12/09/17 06:58 PT 12.9 SECONDS (9.7-12.2) H 12/09/17 06:58 INR 1.2 12/09/17 06:58 Assessment and Plan (1) Small bowel obstruction Status: Suspected (2) Abdominal pain Status: Acute (3) HLD (hyperlipidemia) Status: Acute (4) HTN (hypertension) Status: Acute (5) S/P spinal surgery Status: Acute (6) Dehydration Status: Acute (7) Hypokalemia Status: Acute (8) Hyponatremia Status: Acute
[2017-12-10] MEDS: Sodium Chloride 0.9% 1,000 ML IV SCH (04:35)
[2017-12-10] MEDS: metroNIDAZOLE IV 500 mg/100 ml 500 MG/100 ML BAG IVPB SCH ×3 (05:05→21:29)
[2017-12-10] MEDS: Oxycodone/Acetaminophen 5/325 mg Tab PO PRN ×3 (06:26→23:58)
[2017-12-10 06:48] LABS: BASO # 0.1 K/uL (0.0-0.2); BASO % 1.3 % (0.0-2.0); EOS # 0.6 K/uL (0.0-0.7); HEMOGLOBIN 8.8 g/dL (11.0-16.0); LYMPH # 0.7 K/uL (1.0-4.3); LYMPH % 7.9 % (20.0-40.0); MEAN CORPUSCULAR HEMOGLOBIN 29.1 pg (27.0-31.0); MEAN CORPUSCULAR HGB CONC 33.8 g/dL (33.0-37.0); MEAN PLATELET VOLUME 7.7 fL (7.2-11.7); MONO # 0.7 K/uL (0.0-0.8); MONO % 7.7 % (0.0-10.0); NEUT # 6.8 K/uL (1.8-7.0); NEUT % 76.1 % (50.0-75.0); PLATELET COUNT 426 K/uL (130-400); RBC 3.04 Mil/uL (3.80-5.20); RED CELL DISTRIBUTION WIDTH 13.7 % (11.5-14.5)
[2017-12-10 07:39] LABS: BLOOD UREA NITROGEN 3 mg/dL (7-17); CALCIUM 8.2 mg/dl (8.6-10.4); GFR AFRICAN-AMERICAN > 60; GFR NON-AFRICAN AMERICAN > 60
[2017-12-10] MEDS: Potassium Chloride 10 mEq ER Tab PO SCH (08:00)
[2017-12-10 09:12] LABS: BANDS 1 % (0-2); MONOCYTE 1 % (0-10); NEUTROPHIL 80 % (50-75); TOTAL CELLS COUNTED 100
[2017-12-10 09:13] LABS: ANISOCYTOSIS SLIGHT; EOSINOPHIL 6 % (0-4); HYPOCHROMIC SLIGHT; LYMPHOCYTE 12 % (20-40); PLATELET ESTIMATE NORMAL (NORMAL); POIKILOCYTOSIS SLIGHT; TARGET CELLS SLIGHT
--- NOTE | 2017-12-10 09:18 | PN ---
Copied To: Jonnie Us MD Attending MD: Jonnie Us MD DATE: 12/09/2017 SUBJECTIVE: The patient has decreased abdominal pain, status post bowel movement, decreased distention. No fever. No chills. Blood pressure has been fluctuating up and down. Tolerating liquid diet. PHYSICAL EXAMINATION VITAL SIGNS: Blood pressure 189/94, pulse 52, respiratory rate 20, temperature 99.2. LUNGS: Clear. CARDIOPULMONARY: S1, S2, regular. ABDOMEN: Exaggerated bowel sounds, decreased bowel distention. No tenderness. ASSESSMENT AND PLAN: 1. Small bowel obstruction, resolved. 2. Dehydration, low platelets. 3. Hypertension. PLAN: Monitor the patient. Jonnie Us MD
[2017-12-10] MEDS: Enoxaparin 40 mg Syringe SC SCH (09:26)
[2017-12-10] MEDS: Multiple Vitamins Tab PO SCH (09:49)
[2017-12-10] MEDS ORDERED: Propofol 10 mg/ml Inj (20 ML) ONE (11:50)
[2017-12-10] MEDS ORDERED: Sodium Chloride 0.9% 500 ML IV ONE ×2 (12:22)
[2017-12-10 13:12] VITALS: O2SAT 98
[2017-12-10 17:24] VITALS: RESP 20
--- NOTE | 2017-12-10 23:10 | CP.PCM.PN ---
Objective - Vital Signs/Intake and Output Vital Signs (last 24 hours): Temp Pulse Resp BP Pulse Ox 99.6 F 83 20 173/87 H 98 12/10/17 16:00 12/10/17 16:00 12/10/17 16:00 12/10/17 16:00 12/10/17 16:00 Intake and Output: 12/10/17 12/11/17 18:59 06:59 Intake Total 740 940 Balance 740 940 - Medications Medications: Current Medications Enoxaparin Sodium (Lovenox) 40 mg SC DAILY [facility] Last Admin: 12/10/17 09:26 Dose: Not Given Famotidine (Pepcid) 20 mg PO Q12 [facility] Last Admin: 12/10/17 21:33 Dose: 20 mg Sodium Chloride (Sodium Chloride 0.9%) 1,000 mls @ 80 mls/hr IV .[id number] [facility] Last Admin: 12/10/17 04:35 Dose: 80 mls/hr Ceftriaxone Sodium 1 gm/ (Sodium Chloride) 100 mls @ 100 mls/hr IVPB DAILY [facility] PRN Reason: Protocol Last Admin: 12/10/17 10:57 Dose: 100 mls/hr Metronidazole (Flagyl) 500 mg in 100 mls @ 100 mls/hr IVPB Q8 [facility] PRN Reason: Protocol Last Admin: 12/10/17 21:29 Dose: 100 mls/hr Lactulose (Enulose) 20 gm PO HS PRN PRN Reason: Constipation Losartan Potassium (Cozaar) 100 mg PO DAILY [facility] Last Admin: 12/10/17 09:50 Dose: 100 mg Magnesium Hydroxide (Milk Of Magnesia) 30 ml PO Q6H PRN PRN Reason: Constipation Last Admin: 12/08/17 03:14 Dose: 30 ml Metoclopramide HCl (Reglan) 5 mg IVP Q6H [facility] Last Admin: 12/10/17 19:53 Dose: 5 mg Metoprolol Tartrate (Lopressor) 50 mg PO HS [facility] Last Admin: 12/10/17 21:34 Dose: 50 mg Montelukast Sodium (Singulair) 10 mg PO HS [facility] Last Admin: 12/09/17 21:50 Dose: 10 mg Multivitamins (Hexavitamin) 1 tab PO DAILY [facility] Last Admin: 12/10/17 09:49 Dose: Not Given Nitroglycerin (Nitro-Bid 2% Oint) 1 ea TOP Q6 PRN PRN Reason: Systolic Blood Pressure Last Admin: 12/09/17 22:22 Dose: 1 ea Oxycodone/Acetaminophen (Percocet 5/325 Mg Tab) 1 tab PO Q4H PRN PRN Reason: Pain, moderate (4-7) Stop: 12/12/17 22:10 Last Admin: 12/10/17 19:32 Dose: 1 tab Potassium Chloride (Klor-Con 10) 40 meq PO BRK [facility] Last Admin: 12/10/17 08:00 Dose: Not Given Rosuvastatin Calcium (Crestor) 5 mg PO HS [facility] Last Admin: 12/10/17 21:33 Dose: 5 mg - Labs Labs: 12/10/17 06:37 12/10/17 06:37 PT 12.9 SECONDS (9.7-12.2) H 12/09/17 06:58 INR 1.2 12/09/17 06:58 Assessment and Plan (1) Small bowel obstruction Status: Suspected (2) Abdominal pain Status: Acute (3) HLD (hyperlipidemia) Status: Acute (4) HTN (hypertension) Status: Acute (5) S/P spinal surgery Status: Acute (6) Dehydration Status: Acute (7) Hypokalemia Status: Acute (8) Hyponatremia Status: Acute
[2017-12-11] MEDS: Sodium Chloride 0.9% 1,000 ML IV SCH (04:49)
[2017-12-11] MEDS: metroNIDAZOLE IV 500 mg/100 ml 500 MG/100 ML BAG IVPB SCH ×2 (05:01→15:00)
[2017-12-11] MEDS: Oxycodone/Acetaminophen 5/325 mg Tab PO PRN ×2 (06:03→11:18)
[2017-12-11] MEDS: Potassium Chloride 10 mEq ER Tab PO SCH (09:00)
[2017-12-11] MEDS: Multiple Vitamins Tab PO SCH (09:38)
[2017-12-11] MEDS: Enoxaparin 40 mg Syringe SC SCH (09:38)
[2017-12-11 11:35] LABS: BASO # 0.1 K/uL (0.0-0.2); EOS # 1.1 K/uL (0.0-0.7); EOS % 11.7 % (0.0-4.0); LYMPH # 0.8 K/uL (1.0-4.3); LYMPH % 8.5 % (20.0-40.0); MEAN CELL VOLUME 86.6 fL (81.0-99.0); MEAN CORPUSCULAR HEMOGLOBIN 29.2 pg (27.0-31.0); MEAN CORPUSCULAR HGB CONC 33.7 g/dL (33.0-37.0); MEAN PLATELET VOLUME 7.8 fL (7.2-11.7); MONO # 0.8 K/uL (0.0-0.8); MONO % 8.7 % (0.0-10.0); NEUT # 6.4 K/uL (1.8-7.0); NEUT % 70.1 % (50.0-75.0); PLATELET COUNT 447 K/uL (130-400); RBC 3.41 Mil/uL (3.80-5.20); RED CELL DISTRIBUTION WIDTH 13.9 % (11.5-14.5); WHITE BLOOD COUNT 9.2 K/uL (4.8-10.8)
[2017-12-11 11:49] LABS: BLOOD UREA NITROGEN 4 mg/dL (7-17); CALCIUM 8.9 mg/dl (8.6-10.4); GFR AFRICAN-AMERICAN > 60; GFR NON-AFRICAN AMERICAN > 60
[2017-12-11 12:00] LABS: ANISOCYTOSIS SLIGHT; BASOPHIL 1 % (0-2); EOSINOPHIL 13 % (0-4); LYMPHOCYTE 6 % (20-40); MONOCYTE 8 % (0-10); NEUTROPHIL 72 % (50-75); PLATELET ESTIMATE NORMAL (NORMAL); POIKILOCYTOSIS SLIGHT; TOTAL CELLS COUNTED 100
[2017-12-11 12:01] LABS: HYPOCHROMIC SLIGHT
--- NOTE | 2017-12-11 12:19 | PN ---
Copied To: Sravan Nunes MD Attending MD: Sravan Nunes MD DATE: 12/11/2017 LOCATION: 356, bed B. SUBJECTIVE: This 77-year-old female post upper and lower endoscopy with biopsy seen and examined in rounds, tolerating oral intake so far, appears to be awake, alert, and oriented as per a Portuguese spoken staff. It has to be mentioned that the case was discussed at length with the patient or daughter. The entire chart is reviewed including, but not limited to most recent lab and radiology study results, current and the previous medication list, current and the previous medical events, and today's lab results are still pending. However, the patient still has low hemoglobin and hematocrit with low calcium, low BUN and creatinine, with the latest albumin 2.7, total protein 5.3. Gastric biopsy pathology report is seen, reported to be negative for Helicobacter pylori infection. The patient tolerated oral intake well. PHYSICAL EXAMINATION: GENERAL: A 77-year-old female. VITAL SIGNS: Afebrile, with pulse of 82, respiratory rate 20 to 22, with blood pressure 152/82. HEENT: Showed pale, dry oral mucous membranes. Nonicteric sclerae. LUNGS: Few scattered crepitation. Decreased air entry at bases. HEART: Positive S1 and S2. ABDOMEN: Soft, with mild generalized tenderness. No mass or organomegaly. No rebound tenderness or guarding. EXTREMITIES: Without significant clubbing, cyanosis, or edema. NEUROLOGIC: No reported new neurological deficits, sensory or motor. IMPRESSION: 1. Anemia. 2. Peptic ulcer disease. 3. Diverticulosis, diffuse with left-sided colitis. 4. Known history of but not limited to depression, hypertension, hyperlipidemia with sleep apnea, as well as reported osteoporosis, was status post back surgery about 2 weeks ago. SUGGESTIONS: 1. Continue current management. 2. Advance diet as tolerated. 3. Follow up on colon biopsy report. 4. Further recommendation to follow. Sravan Nunes MD
--- NOTE | 2017-12-11 16:27 | CP.PCM.PN ---
Objective - Vital Signs/Intake and Output Vital Signs (last 24 hours): Temp Pulse Resp BP Pulse Ox 98.6 F 84 20 159/85 H 98 12/11/17 07:41 12/11/17 07:41 12/11/17 07:41 12/11/17 07:41 12/11/17 07:41 Intake and Output: 12/11/17 12/11/17 06:59 18:59 Intake Total 1820 1400 Balance 1820 1400 - Medications Medications: Current Medications Enoxaparin Sodium (Lovenox) [address] [facility] Last Admin: 12/11/17 09:38 Dose: 40 mg Famotidine (Pepcid) [address] [facility] Last Admin: 12/11/17 09:38 Dose: 20 mg Ceftriaxone Sodium 1 gm/ (Sodium Chloride) 100 mls @ 100 mls/hr IVPB DAILY [facility] PRN Reason: Protocol Last Admin: 12/11/17 09:38 Dose: 100 mls/hr Metronidazole (Flagyl) 500 mg in 100 mls @ 100 mls/hr IVPB Q8 [facility] PRN Reason: Protocol Last Admin: 12/11/17 15:00 Dose: 100 mls/hr Lactulose (Enulose) 20 gm PO HS PRN PRN Reason: Constipation Losartan Potassium (Cozaar) [address] [facility] Last Admin: 12/11/17 09:38 Dose: 100 mg Magnesium Hydroxide (Milk Of Magnesia) 30 ml PO Q6H PRN PRN Reason: Constipation Last Admin: 12/08/17 03:14 Dose: 30 ml Metoclopramide HCl (Reglan) [address] [facility] Last Admin: 12/11/17 15:00 Dose: 5 mg Metoprolol Tartrate (Lopressor) [address] [facility] Last Admin: 12/10/17 21:34 Dose: 50 mg Montelukast Sodium (Singulair) [address] [facility] Last Admin: 12/10/17 22:00 Dose: 10 mg Multivitamins (Hexavitamin) [address] [facility] Last Admin: 12/11/17 09:38 Dose: 1 tab Nitroglycerin (Nitro-Bid 2% Oint) 1 ea TOP Q6 PRN PRN Reason: Systolic Blood Pressure Last Admin: 12/09/17 22:22 Dose: 1 ea Oxycodone/Acetaminophen (Percocet 5/325 Mg Tab) 1 tab PO Q4H PRN PRN Reason: Pain, moderate (4-7) Stop: 12/12/17 22:10 Last Admin: 12/11/17 11:18 Dose: 1 tab Potassium Chloride (Klor-Con 10) 40 meq PO BRK [facility] Last Admin: 12/11/17 09:00 Dose: 40 meq Rosuvastatin Calcium (Crestor) 5 mg PO HS [facility] Last Admin: 12/10/17 21:33 Dose: 5 mg - Labs Labs: 12/11/17 11:27 12/11/17 11:27 PT 12.9 SECONDS (9.7-12.2) H 12/09/17 06:58 INR 1.2 12/09/17 06:58 Assessment and Plan - Assessment and Plan (Free Text) Assessment: Patient admitted with abdominal pain, s/p endoscopy , seen and examined. Feeling better, tolerating diet, no vomiting, cleared by DR Us for discharge back to shelter today.
[2017-12-11 17:07] VITALS: BP 162/83; PULSE 81; TEMP 98.4
--- NOTE | 2017-12-11 23:37 | CP.PCM.DIS ---
Provider - Provider Date of Admission: 12/06/17 13:28 Attending physician: Jonnie Us MD Diagnosis - Discharge Diagnosis (1) Small bowel obstruction Status: Suspected (2) Abdominal pain Status: Acute (3) HLD (hyperlipidemia) Status: Acute (4) HTN (hypertension) Status: Acute (5) S/P spinal surgery Status: Acute (6) Dehydration Status: Acute (7) Hypokalemia Status: Acute (8) Hyponatremia Status: Acute Hospital Course - Lab Results Lab Results: Most Recent Lab Values WBC 9.2 K/uL (4.8-10.8) 12/11/17 11:27 RBC 3.41 Mil/uL (3.80-5.20) L 12/11/17 11:27 Hgb 10.0 g/dL (11.0-16.0) L 12/11/17 11:27 Hct 29.5 % (34.0-47.0) L 12/11/17 11:27 MCV 86.6 fL (81.0-99.0) 12/11/17 11:27 MCH 29.2 pg (27.0-31.0) 12/11/17 11:27 MCHC 33.7 g/dL (33.0-37.0) 12/11/17 11:27 RDW 13.9 % (11.5-14.5) 12/11/17 11:27 Plt Count 447 K/uL (130-400) H 12/11/17 11:27 MPV 7.8 fL (7.2-11.7) 12/11/17 11:27 Neut % (Auto) 70.1 % (50.0-75.0) 12/11/17 11:27 Lymph % (Auto) 8.5 % (20.0-40.0) L 12/11/17 11:27 [place] % (Auto) 8.7 % (0.0-10.0) 12/11/17 11:27 Eos % (Auto) 11.7 % (0.0-4.0) H 12/11/17 11:27 Baso % (Auto) 1.0 % (0.0-2.0) 12/11/17 11:27 Neut # (Auto) 6.4 K/uL (1.8-7.0) 12/11/17 11:27 Lymph # (Auto) 0.8 K/uL (1.0-4.3) L 12/11/17 11:27 [place] # (Auto) 0.8 K/uL (0.0-0.8) 12/11/17 11:27 Eos # (Auto) 1.1 K/uL (0.0-0.7) H 12/11/17 11:27 Baso # (Auto) 0.1 K/uL (0.0-0.2) 12/11/17 11:27 Neutrophils % (Manual) 72 % (50-75) 12/11/17 11:27 Band Neutrophils % 1 % (0-2) 12/10/17 06:37 Lymphocytes % (Manual) 6 % (20-40) L 12/11/17 11:27 Monocytes % (Manual) 8 % (0-10) 12/11/17 11:27 Eosinophils % (Manual) 13 % (0-4) H 12/11/17 11:27 Basophils % (Manual) 1 % (0-2) 12/11/17 11:27 Toxic Granulation Present 12/07/17 07:52 Platelet Estimate Normal (NORMAL) 12/11/17 11:27 Large Platelets Present 12/07/17 07:52 Polychromasia Slight 12/07/17 07:52 Hypochromasia (manual) Slight 12/11/17 11:27 Poikilocytosis (manual Slight 12/11/17 11:27 Basophilic Stippling Slight 12/06/17 10:17 Anisocytosis (manual) Slight 12/11/17 11:27 Target Cells Slight 12/10/17 06:37 PT 12.9 SECONDS (9.7-12.2) H 12/09/17 06:58 INR 1.2 12/09/17 06:58 Sodium 133 mmol/L (132-148) 12/11/17 11:27 Potassium 2.9 mmol/L (3.6-5.2) L 12/11/17 11:27 Chloride 98 mmol/L (98-107) 12/11/17 11:27 Carbon Dioxide 27 mmol/L (22-30) 12/11/17 11:27 Anion Gap 11 (10-20) 12/11/17 11:27 BUN 4 mg/dL (7-17) L 12/11/17 11:27 Creatinine 0.5 mg/dL (0.7-1.2) L 12/11/17 11:27 Est GFR ( Amer) > 60 12/11/17 11:27 Est GFR (Non-Af Amer) > 60 12/11/17 11:27 Random Glucose 100 mg/dL (65-105) 12/11/17 11:27 Lactic Acid 1.0 mmol/L (0.7-2.1) 12/06/17 10:17 Calcium 8.9 mg/dl (8.6-10.4) 12/11/17 11:27 Total Bilirubin 0.1 mg/dL (0.2-1.3) L 12/09/17 06:58 AST 24 U/L (14-36) 12/09/17 06:58 ALT 22 U/L (9-52) 12/09/17 06:58 Alkaline Phosphatase 76 U/L (38-126) 12/09/17 06:58 Total Protein 5.3 g/dL (6.3-8.3) L 12/09/17 06:58 Albumin 2.7 g/dL (3.5-5.0) L D 12/09/17 06:58 Globulin 2.6 gm/dL (2.2-3.9) 12/09/17 06:58 Albumin/Globulin Ratio 1.0 (1.0-2.1) 12/09/17 06:58 Lipase 23 U/L (23-300) 12/06/17 10:17 Urine Color Yellow (YELLOW) 12/06/17 09:00 Urine Clarity Clear (Clear) 12/06/17 09:00 Urine pH 6.0 (5.0-8.0) 12/06/17 09:00 Ur Specific [place] 1.013 (1.003-1.030) 12/06/17 09:00 Urine Protein Negative mg/dL (NEGATIVE) 12/06/17 09:00 Urine Glucose (UA) Normal mg/dL (Normal) 12/06/17 09:00 Urine Ketones Trace mg/dL (NEGATIVE) 12/06/17 09:00 Urine Blood Negative (NEGATIVE) 12/06/17 09:00 Urine Nitrate Negative (NEGATIVE) 12/06/17 09:00 Urine Bilirubin Negative (NEGATIVE) 12/06/17 09:00 Urine Urobilinogen Normal mg/dL (0.2-1.0) 12/06/17 09:00 Ur Leukocyte Esterase Neg [place]/uL (Negative) 12/06/17 09:00 Urine WBC (Auto) 3 /hpf (0-5) 12/06/17 09:00 Urine RBC (Auto) < 1 /hpf (0-3) 12/06/17 09:00 Ur Squamous Epith Cells < 1 /hpf (0-5) 12/06/17 09:00 Urine Bacteria Rare (<OCC) 12/06/17 09:00 Blood Type A POSITIVE 12/09/17 16:22 Antibody Screen Negative 12/09/17 16:22 Discharge Exam - Head Exam Head Exam: ATRAUMATIC, NORMOCEPHALIC Discharge Plan - Discharge Medications Prescriptions: Hydrocortisone/Pramoxine [Analpram Hc 2.5%-1% Crm Single] 4 gm RC BID #1 cream.appl Magnesium Hydroxide [Milk Of Magnesia] 30 ml PO HS PRN 30 Days udc PRN Reason: Constipation - Follow Up Plan Condition: IMPROVED Disposition: REHAB FACILITY/REHAB UNIT Instructions: Diarrhea in Adolescents and Adults, Hypokalemia (DC), Acute Abdomen (Belly Pain), Adult (DC), Hyponatremia (DC) Referrals: Jonnie Us MD [Staff Provider] -
--- NOTE | 2017-12-12 00:53 | PN ---
Copied To: Jonnie Us MD Attending MD: Jonnie Us MD DATE: 12/10/2017 SUBJECTIVE: The patient feels much better. She is status post colonoscopy. Colonoscopy finding as noted. She is not bleeding. She denies any fever or chills. She has received potassium. No fever. No . PHYSICAL EXAMINATION: VITAL SIGNS: Pulse 80, respiratory rate 20, temperature 99. LUNGS: Clear. CVS: S1 and S2 regular. ABDOMEN: Soft. Nontender. Bowel sounds are positive. ASSESSMENT: 1. Small-bowel obstruction, which is improving. 2. Hypertension, poorly controlled. 3. Spinal surgery. 4. Hyperlipidemia. PLAN: Monitor the patient. Proceed diet. Possible discharge. Jonnie Us MD
== END 2017-12-11 18:42 | DRG 389 ==
LOC: C.ER 08:30 → C.9E 13:28 → C.3T 16:47
PROVIDERS: ADMIT Internal Medicine; ATTEND Internal Medicine
PROC: 0DB88ZX Excision of Small Intestine, Via Natural or Artificial Opening Endoscopic, Diagnostic (ICD-10-PCS; 2017-12-09)
PROC: 0DBM8ZX Excision of Descending Colon, Via Natural or Artificial Opening Endoscopic, Diagnostic (ICD-10-PCS; principal; 2017-12-10 12:21)
DX: K56.609 Unspecified intestinal obstruction, unspecified as to partial versus complete obstruction (principal); K51.50 Left sided colitis without complications; E87.1 Hypo-osmolality and hyponatremia; K27.3 Acute peptic ulcer, site unspecified, without hemorrhage or perforation; D64.9 Anemia, unspecified; K29.50 Unspecified chronic gastritis without bleeding; K57.30 Diverticulosis of large intestine without perforation or abscess without bleeding; K44.9 Diaphragmatic hernia without obstruction or gangrene; D69.6 Thrombocytopenia, unspecified; E78.00 Pure hypercholesterolemia, unspecified; E86.0 Dehydration; E87.6 Hypokalemia; G47.33 Obstructive sleep apnea (adult) (pediatric); I10 Essential (primary) hypertension; K21.9 Gastro-esophageal reflux disease without esophagitis; M81.0 Age-related osteoporosis without current pathological fracture; Z86.010 Personal history of colon polyps; Z96.652 Presence of left artificial knee joint; Z98.1 Arthrodesis status

== ENCOUNTER 2018-04-30 10:26 | Outpatient (CLI) | payer MEDICARE | END 2018-04-30 10:27 | disposition home or self-care (01) | LOC: C.MRIC 10:26 ==

== ENCOUNTER 2018-05-06 11:55 | Inpatient (IN) | payer MEDICARE ==
[2018-05-06 11:56] VITALS: BMI 27.9
--- NOTE | 2018-05-06 16:24 | C.PDOC ---
History Of Present Illness 77 y/o female presents to the ER complaining of back pain. Patient states that she had 2 back surgeries, her last surgery was performed on 11/25/17 by . Patient reports that she continues to have pain even after she had the surgeries. She has difficulty functioning at home. She notes that she had an MRI on 04/30/17. Denies having dysuria, hematuria, and bowel/bladder incontinence. Time Seen by Provider: 05/06/18 15:27 Chief Complaint (Nursing): Back Pain History Per: Patient History/Exam Limitations: no limitations Onset/Duration Of Symptoms: Days Current Symptoms Are (Timing): Still Present Severity: Moderate Previous Symptoms: Back Pain, Chronic Pain Exacerbating Factor(s): Movement, Standing Past Medical History Reviewed: Historical Data, Nursing Documentation, Vital Signs Vital Signs: Last Vital Signs Temp 97.9 F 05/06/18 12:31 Pulse 92 H 05/06/18 12:31 Resp 18 05/06/18 12:31 BP 189/94 H 05/06/18 12:31 Pulse Ox 98 05/06/18 12:31 - Medical History PMH: Anxiety, Arthritis (knee ; back), Colonic Polyps, Depression, Fractures (lumbar), HTN, Hypercholesterolemia, Osteoporosis, Peripheral Edema, Sleep Apnea (has c-pap at home not using. being assessed for a different device) Denies: Chronic Kidney Disease Surgical History: Appendectomy, Back Surgery (11/25/17) - [facility] Procedures COLONOSCOPY (08/11/13) ESOPHAGOGASTRODUODENOSCOPY [EGD] W/CLOSED BIOPSY (08/11/13) EXCISION OF DESCENDING COLON, ENDO, DIAGN (12/06/17) EXCISION OF SMALL INTESTINE, ENDO, DIAGN (12/06/17) FUSION THOR JT W AUTOL SUB, POST APPR P COL, OPEN (11/25/17) RELEASE LUMBAR NERVE, OPEN APPROACH (11/25/17) VENOUS CATHETERIZATION NEC (12/30/14) Family History: States: No Known Family Hx - Social History Hx Alcohol Use: Yes (occl wine) Hx Substance Use: No - Immunization History Hx Tetanus Toxoid Vaccination: No Hx Influenza Vaccination: No Hx Pneumococcal Vaccination: No Review Of Systems Except As Marked, All Systems Reviewed And Found Negative. Constitutional: Positive for: Weakness. Negative for: Fever, Chills Genitourinary: Negative for: Dysuria, Frequency, Incontinence Musculoskeletal: Positive for: Back Pain Physical Exam - Physical Exam Appears: Non-toxic, No Acute Distress Skin: Normal Color, Warm, Dry Head: Atraumatic, Normacephalic Eye(s): bilateral: Normal Inspection Nose: Normal Oral Mucosa: Moist Neck: Supple Chest: Symmetrical Cardiovascular: Rhythm Regular Respiratory: Normal Breath Sounds Gastrointestinal/Abdominal: Soft Back: Decreased ROM, Paraspinal Tenderness, Other (diffuse tenderness to thoracic and lumbar spine) Extremity: Normal ROM Neurological/Psych: Oriented x3, Normal Speech Gait: Unable To Assess ED Course And Treatment - Laboratory Results Result Diagrams: 05/06/18 16:50 05/06/18 17:35 Lab Interpretation: No Acute Changes O2 Sat by Pulse Oximetry: 98 (RA) Pulse Ox Interpretation: Normal Progress Note: Treated with IVF NSS and morphine. Consult placed to Dr Eldridge (spine) Reassessment Condition: Improved - Physician Consult Information Physician Contacted: Jonnie Us Outcome Of Conversation: admit Medical Decision Making Medical Decision Making: Plan: --Labs --UA --Morphine IV --IV Fluids Disposition Discussed With : Jonnie Us Doctor Will See Patient In The: Hospital - Disposition Disposition: HOSPITALIZED Disposition Time: 18:00 Condition: STABLE - POA Present On Arrival: None - Clinical Impression Clinical Impression: Thoracic back pain - PA / PRACTICE ARCHITECT / Resident Statement MD/DO has reviewed & agrees with the documentation as recorded. - Scribe Statement The provider has reviewed the documentation as recorded by the Tanaibe Otis Dai Provider Attestation All medical record entries made by the Scribe were at my direction and personally dictated by me. I have reviewed the chart and agree that the record accurately reflects my personal performance of the history, physical exam, medical decision making, and the department course for this patient. I have also personally directed, reviewed, and agree with the discharge instructions and disposition. Decision To Admit - Pt Status Changed To: Hospital Disposition Of: Inpatient - Admit Certification Admit to Inpatient:: After my assessment, the patient will require hospitalization for at least two midnights. This is because of the severity of symptoms shown, intensity of services needed, and/or the medical risk in this patient being treated as an outpatient. - InPatient: Physician Admission Certification:: Intractable back pain - . Bed Request Type: Regular Patient Diagnosis: Thoracic back pain
[2018-05-06] MEDS ORDERED: Naproxen 275 mg Tab PO PRN (16:33)
[2018-05-06 16:54] LABS: BASO # 0.1 K/uL (0.0-0.2); EOS % 0.3 % (0.0-4.0); LYMPH # 1.4 K/uL (1.0-4.3); LYMPH % 16.2 % (20.0-40.0); MEAN CORPUSCULAR HEMOGLOBIN 29.3 pg (27.0-31.0); MEAN CORPUSCULAR HGB CONC 32.9 g/dL (33.0-37.0); MEAN PLATELET VOLUME 8.5 fL (7.2-11.7); MONO # 0.5 K/uL (0.0-0.8); MONO % 6.4 % (0.0-10.0); NEUT # 6.5 K/uL (1.8-7.0); NEUT % 76.1 % (50.0-75.0); NRBC % 0.1 % (0.0-2.0); RBC 4.34 Mil/uL (3.80-5.20); RED CELL DISTRIBUTION WIDTH 14.6 % (11.5-14.5); WHITE BLOOD COUNT 8.5 K/uL (4.8-10.8)
[2018-05-06 16:55] LABS: HEMOGLOBIN 12.7 g/dL (11.0-16.0)
[2018-05-06] MEDS ORDERED: Sodium Chloride 0.9% 1,000 ML ONE (17:08)
[2018-05-06] MEDS: Sodium Chloride 0.9% 1,000 ML IV SCH (17:40)
[2018-05-06 17:53] LABS: ALB/GLOB RATIO 1.3 (1.0-2.1); ALBUMIN 4.7 g/dL (3.5-5.0); ALT/SGPT 16 U/L (9-52); AST/SGOT 39 U/L (14-36); BLOOD UREA NITROGEN 22 mg/dL (7-17); CALCIUM 10.3 mg/dl (8.6-10.4); GFR NON-AFRICAN AMERICAN > 60
[2018-05-06] MEDS ORDERED: Morphine 4 MG/ML VIAL ONE (17:59)
--- NOTE | 2018-05-06 20:48 | CP.PCM.HP ---
Past Patient History - Infectious Disease Hx of Infectious Diseases: None - Tetanus Immunizations Tetanus Immunization: Unknown - Past Medical History & Family History Past Medical History?: Yes - Past Social History Smoking Status: Never Smoked - CARDIAC Hx Hypercholesterolemia: Yes Hx Hypertension: Yes Hx Peripheral Edema: Yes - PULMONARY Hx Sleep Apnea: Yes (has c-pap at home not using. being assessed for a different device) - NEUROLOGICAL Hx Neurological Disorder: Yes Hx Dizziness: Yes - HEENT Hx HEENT Problems: Yes Hx Cataracts: Yes (BILAT IOL) - RENAL Hx Chronic Kidney Disease: No - ENDOCRINE/METABOLIC Hx Endocrine Disorders: No - HEMATOLOGICAL/ONCOLOGICAL Hx Blood Disorders: No - INTEGUMENTARY Hx Dermatological Problems: No - MUSCULOSKELETAL/RHEUMATOLOGICAL Hx Arthritis: Yes (knee ; back) Hx Fractures: Yes (lumbar) Hx Osteoporosis: Yes - GASTROINTESTINAL Hx Gastrointestinal Disorders: Yes Hx Gastroesophageal Reflux: Yes - GENITOURINARY/GYNECOLOGICAL Hx Genitourinary Disorders: Yes (URINARY FREQUENCY UTERINE PROLAPSE) - PSYCHIATRIC Hx Anxiety: Yes Hx Depression: Yes Hx Substance Use: No - SURGICAL HISTORY Hx Appendectomy: Yes - ANESTHESIA Hx Anesthesia: Yes Hx Anesthesia Reactions: No Hx Malignant Hyperthermia: No Meds Allergies/Adverse Reactions: Allergies Allergy/AdvReac Type Severity Reaction Status Date / Time vancomycin Allergy ANAPHYLAXIS Verified 12/06/17 08:36 Results - Vital Signs Recent Vital Signs: Last Vital Signs Temp 98.9 F 05/06/18 18:22 Pulse 98 H 05/06/18 18:22 Resp 18 05/06/18 17:27 BP 166/88 H 05/06/18 18:22 Pulse Ox 97 05/06/18 18:22 - Labs Result Diagrams: 05/06/18 16:50 05/06/18 17:35 Labs: Laboratory Results - last 24 hr 05/06/18 05/06/18 16:50 17:35 WBC 8.5 RBC 4.34 Hgb 12.7 D Hct 38.6 MCV 89.0 D MCH 29.3 MCHC 32.9 L RDW 14.6 H Plt Count 313 D MPV 8.5 Neut % (Auto) 76.1 H Lymph % (Auto) 16.2 L [place] % (Auto) 6.4 Eos % (Auto) 0.3 Baso % (Auto) 1.0 Neut # (Auto) 6.5 Lymph # (Auto) 1.4 [place] # (Auto) 0.5 Eos # (Auto) 0.0 Baso # (Auto) 0.1 Sodium 131 L Potassium 5.1 Chloride 96 L Carbon Dioxide 25 Anion Gap 15 BUN 22 H Creatinine 0.9 Est GFR ( Amer) > 60 Est GFR (Non-Af Amer) > 60 Random Glucose 114 H Calcium 10.3 Total Bilirubin 0.9 AST 39 H D ALT 16 Alkaline Phosphatase 114 Total Protein 8.3 Albumin 4.7 Globulin 3.7 Albumin/Globulin Ratio 1.3
[2018-05-06 21:35] LABS: SQUAMOUS EPITHIAL 7 /hpf (0-5); URINE BACTERIA RARE (<OCC); URINE BILIRUBIN NEGATIVE (NEGATIVE); URINE BLOOD NEGATIVE (NEGATIVE); URINE CLARITY Hazy (Clear); URINE COLOR Yellow (YELLOW); URINE GLUCOSE (UA) NORMAL (Normal); URINE LEUKOCYTE ESTERASE 3+ Leu/uL (Negative); URINE PROTEIN NEGATIVE (NEGATIVE); URINE UROBILINOGEN NORMAL mg/dL (0.2-1.0)
[2018-05-06] MEDS: Oxycodone/Acetaminophen 5/325 mg Tab PO PRN (21:44)
[2018-05-07] MEDS: Oxycodone/Acetaminophen 5/325 mg Tab PO PRN ×3 (02:01→21:33)
[2018-05-07] MEDS ORDERED: Oxycodone/Acetaminophen 5/325 mg Tab ONE ×2 (02:03→07:38)
[2018-05-07] MEDS: Sodium Chloride 0.9% 1,000 ML IV SCH ×3 (03:57→22:35)
--- NOTE | 2018-05-07 04:54 | HP ---
CHIEF COMPLAINT: Back and neck pain. HISTORY OF PRESENT ILLNESS: This is a 77-year-old female, well known to me with history of prior multiple spinal surgeries. Her last spinal surgery was on 11/25/2017 by Neurosurgery, and the patient at that point after surgery, she was transferred to subacute rehab. She underwent physical therapy rehab and discharged home, and she has been seeing her neurosurgeon, and the patient has not improved. She continues to have pain despite surgery, and she has difficulty doing activities of daily living including ambulation, physical activity at home. The patient was seen, evaluated and MRI was done and the patient was advised to come back to emergency room. She has intractable back pain. Back pain is from about 4 inches below the root of the neck all the way down to the lumbosacral area; worse with bending, moving, and is present on rest. Not relieved by any medication, difficulty walking in the bathroom and not used stairs, generalized weakness, tiredness. She has tingling and numbness in bilateral leg. No fever. No chills. No history of any wounds. No discharge from the back. There is no history of polyuria, polydipsia, polyphagia. There is no history of hematuria, pyuria. She denies any sneezing, itchy eyes, itchy nose. She has no history of trauma, fall, loss of consciousness. PAST MEDICAL HISTORY: Hypertension. SOCIAL HISTORY: She is a nonsmoker. Non-ETOH user. CURRENT MEDICATIONS: Losartan and Naprosyn. FAMILY HISTORY: Noncontributory. PHYSICAL EXAMINATION: GENERAL: An elderly female, in distress. VITAL SIGNS: Blood pressure 164/94, pulse 98, respiratory rate 18, temperature 98.9. SKIN: Senile turgor. No bruises. No purpura. No petechiae. No ecchymosis. Has a midline scar in the back, clean healed. HEENT: Atraumatic, normocephalic. Negative pallor. Negative jaundice. Extraocular movements are intact. NECK: Supple. No JVD. No lymph node. No thyromegaly. No carotid bruit. CHEST WALL: Bilateral symmetrical expansion. No tenderness. No deformity. LUNGS: Bilaterally clear. No rales. No rhonchi. CARDIOVASCULAR SYSTEM: PMI in fifth intercostal space. S1, S2 regular. No heaves. No thrill. ABDOMEN: Soft. Nontender. Bowel sounds are positive. RECTAL AND PELVIS: Deferred. The patient is in the ER, in the . EXTREMITIES: No clubbing, cyanosis, or edema. CENTRAL NERVOUS SYSTEM: Awake, alert, oriented x3. Cranial nerves II through XII are normal. Power 5/5 x4. The patient is not able to move legs because of back pain. ASSESSMENT: 1. Intractable back pain, rule out herniated disk disease. 2. Hypertension. PLAN: Admit. The patient has been seen and examined. Detailed plan of care has been ordered and neurosurgical evaluation has been ordered. The patient will be followed up closely. Jonnie Us MD
--- NOTE | 2018-05-07 08:49 | CP.PCM.CON ---
History of Present Illness - History of Present Illness History of Present Illness: dictated Pt with mult problems; 1. Thoracic meningioma - d/w pt and fam options of operating vs wathing/MRI f/u 2. prev fx/fusion - ordered CT to evaluate fusion/hardware 3. Lumbar stenosis/radiculopathy - would rec medicinal mgmt,phys tx, and consider pain mgmt eval Past Patient History - Infectious Disease Hx of Infectious Diseases: None - Tetanus Immunizations Tetanus Immunization: Unknown - Past Medical History & Family History Past Medical History?: Yes - Past Social History Smoking Status: Never Smoked - CARDIAC Hx Hypercholesterolemia: Yes Hx Hypertension: Yes Hx Peripheral Edema: Yes - PULMONARY Hx Sleep Apnea: Yes (has c-pap at home not using. being assessed for a different device) - NEUROLOGICAL Hx Neurological Disorder: Yes Hx Dizziness: Yes - HEENT Hx HEENT Problems: Yes Hx Cataracts: Yes (BILAT IOL) - RENAL Hx Chronic Kidney Disease: No - ENDOCRINE/METABOLIC Hx Endocrine Disorders: No - HEMATOLOGICAL/ONCOLOGICAL Hx Blood Disorders: No - INTEGUMENTARY Hx Dermatological Problems: No - MUSCULOSKELETAL/RHEUMATOLOGICAL Hx Arthritis: Yes (knee ; back) Hx Fractures: Yes (lumbar) Hx Osteoporosis: Yes - GASTROINTESTINAL Hx Gastrointestinal Disorders: Yes Hx Gastroesophageal Reflux: Yes - GENITOURINARY/GYNECOLOGICAL Hx Genitourinary Disorders: Yes (URINARY FREQUENCY UTERINE PROLAPSE) - PSYCHIATRIC Hx Anxiety: Yes Hx Depression: Yes Hx Substance Use: No - SURGICAL HISTORY Hx Appendectomy: Yes - ANESTHESIA Hx Anesthesia: Yes Hx Anesthesia Reactions: No Hx Malignant Hyperthermia: No Meds Allergies/Adverse Reactions: Allergies Allergy/AdvReac Type Severity Reaction Status Date / Time vancomycin Allergy ANAPHYLAXIS Verified 12/06/17 08:36 - Medications Medications: Current Medications Enoxaparin Sodium (Lovenox) 40 mg SC DAILY [facility] Sodium Chloride (Sodium Chloride 0.9%) 1,000 mls @ 100 mls/hr IV .Q10H [facility] Last Admin: 05/07/18 03:57 Dose: Not Given Losartan Potassium (Cozaar) 100 mg PO DAILY [facility] Naproxen (Anaprox) 275 mg PO DAILY PRN PRN Reason: Pain, Mild (1-3) Oxycodone/Acetaminophen (Percocet 5/325 Mg Tab) 1 tab PO Q4H PRN PRN Reason: Pain, moderate (4-7) Stop: 05/09/18 16:35 Last Admin: 05/07/18 07:34 Dose: 1 tab Results - Vital Signs Recent Vital Signs: Last Vital Signs Temp 98.1 F 05/07/18 06:17 Pulse 82 05/07/18 06:17 Resp 20 05/07/18 06:17 BP 142/86 05/07/18 06:17 Pulse Ox 96 05/07/18 06:17 - Labs Result Diagrams: 05/06/18 16:50 05/06/18 17:35 Labs: Laboratory Results - last 24 hr 05/06/18 05/06/18 05/06/18 16:50 17:35 21:27 WBC 8.5 RBC 4.34 Hgb 12.7 D Hct 38.6 MCV 89.0 D MCH 29.3 MCHC 32.9 L RDW 14.6 H Plt Count 313 D MPV 8.5 Neut % (Auto) 76.1 H Lymph % (Auto) 16.2 L [place] % (Auto) 6.4 Eos % (Auto) 0.3 Baso % (Auto) 1.0 Neut # (Auto) 6.5 Lymph # (Auto) 1.4 [place] # (Auto) 0.5 Eos # (Auto) 0.0 Baso # (Auto) 0.1 Sodium 131 L Potassium 5.1 Chloride 96 L Carbon Dioxide 25 Anion Gap 15 BUN 22 H Creatinine 0.9 Est GFR ( Amer) > 60 Est GFR (Non-Af Amer) > 60 Random Glucose 114 H Calcium 10.3 Total Bilirubin 0.9 AST 39 H D ALT 16 Alkaline Phosphatase 114 Total Protein 8.3 Albumin 4.7 Globulin 3.7 Albumin/Globulin Ratio 1.3 Urine Color Yellow Urine Clarity Hazy Urine pH 5.0 Ur Specific [place] 1.013 Urine Protein Negative Urine Glucose (UA) Normal Urine Ketones Negative Urine Blood Negative Urine Nitrate Negative Urine Bilirubin Negative Urine Urobilinogen Normal Ur Leukocyte Esterase 3+ H Urine WBC (Auto) 128 H Urine RBC (Auto) 3 Ur Squamous Epith Cells 7 H Urine Bacteria Rare Hyaline Casts 11-20 H
[2018-05-07] MEDS: Enoxaparin 40 mg Syringe SC SCH (10:30)
--- NOTE | 2018-05-07 13:50 | CT ---
Date of service: 05/07/2018 PROCEDURE: CT Thoracic Spine without contrast HISTORY: f/u fusion COMPARISON: MRI of the thoracic spine without and with intravenous contrast from 04/30/2018. TECHNIQUE: Axial computed tomography images were obtained of the thoracic spine without intravenous contrast. Coronal and sagittal reformatted images were created and reviewed. Radiation dose: Total exam DLP = 586.24 mGy-cm. This CT exam was performed using one or more of the following dose reduction techniques: Automated exposure control, adjustment of the mA and/or kV according to patient size, and/or use of iterative reconstruction technique. FINDINGS: VERTEBRAE: There is normal alignment of the thoracic vertebral bodies. There is normal thoracic kyphosis. There is diffuse bone demineralization. There is no acute fracture in the thoracic spine. Incompletely imaged is an old compression fracture in the L1 vertebral body. Status post posterior spinal fusion at T10 and T11 with transpedicular screws. The screws are well seated without evidence for screw fracture or loosening. There is posterolateral bony arthrodesis. DISCS/SPINAL CANAL/NEURAL FORAMINA: Evaluation of the discs and spinal cord is limited on noncontrast CT examination. Allowing for this, there is no large disc herniation or spinal canal stenosis. There is a 1.1 x 0.8 x 1.1 cm peripherally calcified extradural mass in the right spinal canal at the level of T8 with mass effect and leftward displacement of the spinal cord. PARASPINAL SOFT TISSUES: Paraspinous soft tissues are normal. OTHER FINDINGS: There are old fracture deformities in the right posterior T8 and T9 ribs. IMPRESSION: 1. Status post posterior spinal fusion at T10 and T11 with transpedicular screws. No evidence for screw fracture or loosening. 2. 1.1 x 0.8 x 1.1 cm peripherally calcified extradural mass in the right spinal canal at the level of T8 with mass effect and leftward displacement of the spinal cord, statistically most compatible with a meningioma.
--- NOTE | 2018-05-07 20:52 | CP.PCM.PN ---
Subjective - Subjective Subjective: dictated Objective - Vital Signs/Intake and Output Vital Signs (last 24 hours): Temp Pulse Resp BP Pulse Ox 98.2 F 92 H 20 172/76 H 97 05/07/18 16:00 05/07/18 16:00 05/07/18 16:00 05/07/18 16:00 05/07/18 16:00 - Medications Medications: Current Medications Enoxaparin Sodium (Lovenox) 40 mg SC DAILY [facility] Last Admin: 05/07/18 10:30 Dose: 40 mg Guaifenesin (Mucinex [place]) 600 mg PO BID [facility] Hydrocortisone (Cortizone 1% Cream) 0 gm TOP BID [facility] Sodium Chloride (Sodium Chloride 0.9%) 1,000 mls @ 100 mls/hr IV .Q10H [facility] Last Admin: 05/07/18 13:10 Dose: 100 mls/hr Losartan Potassium (Cozaar) 100 mg PO DAILY [facility] Last Admin: 05/07/18 10:30 Dose: 100 mg Naproxen (Anaprox) 275 mg PO DAILY PRN PRN Reason: Pain, Mild (1-3) Oxycodone/Acetaminophen (Percocet 5/325 Mg Tab) 1 tab PO Q4H PRN PRN Reason: Pain, moderate (4-7) Stop: 05/09/18 16:35 Last Admin: 05/07/18 07:34 Dose: 1 tab Zolpidem Tartrate (Ambien) 5 mg PO HS PRN PRN Reason: Insomnia - Labs Labs: 05/06/18 16:50 05/06/18 17:35
[2018-05-07] MEDS: guaiFENesin 600 mg ER Tab PO SCH (21:26)
[2018-05-07] MEDS: Hydrocortisone 1% Cream (30 GM) TOP SCH (22:34)
[2018-05-08] MEDS: Oxycodone/Acetaminophen 5/325 mg Tab PO PRN ×3 (01:42→18:26)
--- NOTE | 2018-05-08 02:49 | PN ---
DATE: 05/07/2018 SUBJECTIVE: The patient had CT of thoracic spine done. The patient is being seen by neurosurgery. CT of thoracic spine shows status post spinal fusion of T11 and T10 with transpedicular screw. No evidence of screw fracture or loosening and there is also an extradural mass at the T8 level. The patient is in a lot of pain. She is having difficulty walking. She is using walker. Her blood pressure is high. No fever, no chills. She has itching on the right hand. She has insomnia. She has congestion. PHYSICAL EXAMINATION: VITAL SIGNS: Blood pressure 172/76, pulse 92, respiratory rate 20, temperature 98.2. LUNGS: Clear. CARDIOVASCULAR SYSTEM: S1, S2 regular. ABDOMEN: Soft. ASSESSMENT: 1. Lumbar disk disease. 2. Hypertension. 3. Positive urinalysis. PLAN: Neurosurgical input. Physical therapy. Rehab. Pain medication. Ambien. Hydrocortisone cream for right hand. Monitor the patient. Jonnie Us MD
[2018-05-08] MEDS: Sodium Chloride 0.9% 1,000 ML IV SCH ×4 (05:48→17:13)
--- NOTE | 2018-05-08 06:29 | CON ---
DATE: 05/07/2018 HISTORY OF PRESENT ILLNESS: This lady is known to our practice. She is actually status post 2 operations for horrific thoracolumbar fractures. She underwent fixation and fusion with revision. She has been followed by my partner Dr. Eldridge. She recently underwent an outpatient MR that we reviewed which actually showed a thoracic meningioma above the level of her previous pathology as well as the level of the previous pathology, she also has known lumbar stenosis. She and her daughter state that she continues to have pain since the surgery; the pain is in the middle of her previous incision, which most likely to some extent is pain related to the fracture initially. She also has shooting pain down the legs, which is likely the result of lumbar stenosis and lastly she has a radiating numbness around her right mid thoracic region, this certainly could be related to meningioma. I actually questioned her and her family extensively today of potential symptoms of this meningioma. She does admit to some urinary urgency. She also feels she has been having some balance problems. Does not note any overt weakness or numbness. PAST MEDICAL HISTORY: Extensive, reviewed in the EMR. PHYSICAL EXAMINATION: She does exhibit excellent 5 out of 5 strength in all groups of both lower extremities. Sensory exam is intact to light touch as well as having excellent proprioception bilaterally. She was in the ER and that is why I did not test her gait. Her incision is well healed plus or minus tenderness to palpation. IMPRESSION AND PLAN: Obviously, the lady has a lot of things going on all related to the thoracolumbar spine but the stated problems. 1. Regarding her meningioma, I discussed with her and her family the possibility of undergoing extirpation at this time. It is not compressing the cord, but it is displacing it somewhat to the left. The options are either to continue to watch her neurologically radiographically with serial MRIs or operate sooner rather than later. I discussed these options in depth with the family and told them to strongly think things over and there is obviously no sampson here. 2. Regarding her thoracic pain likely from the fracture, I am going to order a CT of the thoracic spine to evaluate the possibility of hardware failure or incomplete fusion. 3. Regarding her lumbar radiculopathy secondary to the stenosis, this I would certainly attempt conservative care first primarily by repeat physiotherapy and additional management, might not be a bad idea to consult a painting worker, perhaps she is a candidate for epidural steroid injection, and the family seemed to be in agreement with this. At this point, the patient is being admitted to the hospital for overwhelming pain. The CT scan is ordered. I noted that already OT and PT consults were ordered as well. Peter Coles MD
[2018-05-08] MEDS: Hydrocortisone 1% Cream (30 GM) TOP SCH ×2 (09:36→18:18)
[2018-05-08] MEDS: Enoxaparin 40 mg Syringe SC SCH (09:36)
[2018-05-08] MEDS: guaiFENesin 600 mg ER Tab PO SCH ×2 (09:37→18:19)
--- NOTE | 2018-05-08 12:49 | CP.PCM.PN ---
Subjective - Date & Time of Evaluation Date of Evaluation: 05/08/18 Time of Evaluation: 12:44 - Subjective Subjective: SPINE Pt sitting at side of bed having lunch. Seems a little more comfortable. CT reviewed. Hardware appears in acceptable position. Read as showing good arthrodesis. Meningioma seen. Pt grossly intact neurologically. Plan: Will order CT lumbar spine to eval lower half of construct as well as probable stenosis of lumbar spine. If so, pt may benefit from PT/epidural injection. Family still discussing surgery for meningioma as per discussion with Dr. Coles. Objective - Vital Signs/Intake and Output Vital Signs (last 24 hours): Temp Pulse Resp BP Pulse Ox 98 F 98 H 20 178/88 H 96 05/08/18 07:59 05/08/18 07:59 05/08/18 07:59 05/08/18 07:59 05/08/18 07:59 Intake and Output: 05/08/18 05/08/18 06:59 18:59 Intake Total 800 Balance 800 - Medications Medications: Current Medications Enoxaparin Sodium (Lovenox) 40 mg SC DAILY [facility] Last Admin: 05/08/18 09:36 Dose: 40 mg Guaifenesin (Mucinex La) 600 mg PO BID [facility] Last Admin: 05/08/18 09:37 Dose: 600 mg Home Med (Omeprazole [Omeprazole]) 20 mg PO DAILY [facility] Hydrocortisone (Cortizone 1% Cream) 0 gm TOP BID [facility] Last Admin: 05/08/18 09:36 Dose: 1 applic Sodium Chloride (Sodium Chloride 0.9%) 1,000 mls @ 100 mls/hr IV .Q10H [facility] Last Admin: 05/08/18 07:56 Dose: Not Given Losartan Potassium (Cozaar) 100 mg PO DAILY [facility] Last Admin: 05/08/18 09:38 Dose: 100 mg Naproxen (Anaprox) 275 mg PO DAILY PRN PRN Reason: Pain, Mild (1-3) Oxycodone/Acetaminophen (Percocet 5/325 Mg Tab) 1 tab PO Q4H PRN PRN Reason: Pain, moderate (4-7) Stop: 05/09/18 16:35 Last Admin: 05/08/18 11:04 Dose: 1 tab Zolpidem Tartrate (Ambien) 5 mg PO HS PRN PRN Reason: Insomnia Last Admin: 05/07/18 21:26 Dose: 5 mg - Labs Labs: 05/06/18 16:50 05/06/18 17:35
--- NOTE | 2018-05-08 15:00 | CT ---
Date of service: 05/08/2018 PROCEDURE: CT Lumbar Spine without contrast HISTORY: Evaluate fusion/hardware/possible stenosis COMPARISON: Comparison made with prior CT scan abdomen pelvis dated 12/06/2017 which image the lumbar spine in 3 planes. Comparison also made with prior MRI of the lumbar spine dated. TECHNIQUE: Axial computed tomography images were obtained of the lumbar spine without the use of intravenous contrast. Coronal and sagittal reformatted images were created and reviewed. Radiation dose: Total exam DLP = 1238.84 mGy-cm. This CT exam was performed using one or more of the following dose reduction techniques: Automated exposure control, adjustment of the mA and/or kV according to patient size, and/or use of iterative reconstruction technique. FINDINGS: VERTEBRAE: Multilevel bilateral laminectomy with in situ posterior fixation hardware essentially unchanged from prior study.. Hardware appears intact with no evidence of loosening or infection.. Also redemonstrated is significant chronic anterior wedge compression fracture of the L1 segment with of vertebral plana appearance of the anterior 2/3 of this segment. There is retropulsion of the residual posterior cortex of this vertebral body segment resulting in compressive effects on the ventral surface of the thecal sac however there is no significant canal stenosis due to the aforementioned laminectomy defect. Redemonstrated are bilateral laminectomy defects which extend from approximately the T12-L1 through the L4-L5 level. And posterior fixation rods which are attached to the right and left pedicles of the L3, L2, and T11 segments.. T12 and inferior T10 levels.. Pedicle screws at the T10 level are not seen due to slice placement.. There is a mild kyphotic angulation deformity centered at the T12-L1 level. The remaining vertebral bodies exhibit relatively normal stature.. Slight anterior subluxation L5 over S1. DISCS/SPINAL CANAL/NEURAL FORAMINA: Bilateral laminectomy defects L4-L5 through the T12-L1 levels. Multilevel bilateral facet arthropathy L5-S1 through the T11-T12 levels. The overall central bony canal appears adequate.. The proximal exit foramina at the L1-L2 level appears narrowed bilaterally more so on the left. Multilevel varying degrees of disc space narrowing. There is vacuum disc phenomena also seen at the L2 of 3 and L3-L4 levels. PARASPINAL SOFT TISSUES: Unremarkable. OTHER FINDINGS: None. IMPRESSION: Multilevel bilateral laminectomy defects extending from approximately the T12-L1 through the L4-L5 levels. Posterior fixation hardware extending from the T10 through the L3 levels appear intact with no definitive evidence of hardware failure... Chronic anterior wedge compression fracture L1 segment with present persistent mild retropulsion of the posterior cortex. . There is a localized kyphotic angulation deformity at the T12-L1 level with slight anterior subluxation L5 over S1. Multilevel degenerative spondylosis including varying degrees of disc space narrowing and facet arthropathy.. Vacuum disc phenomena present at several levels.
[2018-05-08] MEDS ORDERED: Magnesium Hydroxide Susp 30 ml UD PO PRN (20:41)
[2018-05-08] MEDS: Magnesium Hydroxide Susp 30 ml UD PO PRN (21:19)
--- NOTE | 2018-05-09 00:26 | PN ---
DATE: 05/08/2018 SUBJECTIVE: The patient was seen by GI and Surgery. She has had done CT of the lumbosacral spine. The patient's CT of the lumbosacral spine showed intact hardware, no evidence of any fracture. The patient is still in lot of pain. She has tingling, numbness, and burning in her feet. The patient denies any fever, chills, or rigor. No shortness of breath or cough. PHYSICAL EXAMINATION: VITAL SIGNS: Blood pressure 138/80, pulse 71, respiratory rate 16, temperature 99. LUNGS: Clear. CARDIOVASCULAR SYSTEM: S1 and S2 are regular. ABDOMEN: Soft. ASSESSMENT: 1. Back pain with lumbar disk disease and osteoarthritis, status post two surgeries. 2. Hypertension. 3. Rule out urinary tract infection. PLAN: Admit. Monitor the patient. Jonnie Us MD
[2018-05-09] MEDS: Oxycodone/Acetaminophen 5/325 mg Tab PO PRN ×2 (00:47→08:35)
[2018-05-09] MEDS: Sodium Chloride 0.9% 1,000 ML IV SCH ×2 (04:59→13:52)
[2018-05-09] MEDS: Hydrocortisone 1% Cream (30 GM) TOP SCH ×2 (09:42→17:48)
[2018-05-09] MEDS: Pantoprazole 40 mg EC Tab PO SCH (09:42)
[2018-05-09] MEDS: guaiFENesin 600 mg ER Tab PO SCH ×2 (09:42→17:49)
[2018-05-09] MEDS: Enoxaparin 40 mg Syringe SC SCH (09:42)
[2018-05-09 11:26] LABS: BASO % 0.8 % (0.0-2.0); EOS # 0.2 K/uL (0.0-0.7); EOS % 4.2 % (0.0-4.0); LYMPH # 0.7 K/uL (1.0-4.3); LYMPH % 13.1 % (20.0-40.0); MEAN CELL VOLUME 90.7 fL (81.0-99.0); MEAN CORPUSCULAR HEMOGLOBIN 29.9 pg (27.0-31.0); MEAN CORPUSCULAR HGB CONC 32.9 g/dL (33.0-37.0); MEAN PLATELET VOLUME 8.6 fL (7.2-11.7); MONO # 0.5 K/uL (0.0-0.8); MONO % 10.3 % (0.0-10.0); NEUT # 3.6 K/uL (1.8-7.0); NEUT % 71.6 % (50.0-75.0); RBC 3.57 Mil/uL (3.80-5.20); RED CELL DISTRIBUTION WIDTH 14.7 % (11.5-14.5)
[2018-05-09 11:42] LABS: BLOOD UREA NITROGEN 16 mg/dL (7-17); CALCIUM 9.2 mg/dl (8.6-10.4); GFR NON-AFRICAN AMERICAN > 60; HEMOGLOBIN 10.7 g/dL (11.0-16.0)
--- NOTE | 2018-05-09 13:14 | CP.PCM.PN ---
Subjective - Date & Time of Evaluation Date of Evaluation: 05/09/18 Time of Evaluation: 13:05 - Subjective Subjective: SPINE Pt resting in bed. Amb in hallway w PT earlier. Pain a little better. Complains of urinary frequency, but no burning. VSS. Neuro grossly intact. CT shows hardware in place. Definite stenosis in lower lumbar region. + urine c/s + for gram + cocci. Plan: Pt started on antibiotics for UTI. Will give LESI Friday morning. OK to go to [facility] afterwards (Fri or Friday). Hold Lovenox. Objective - Vital Signs/Intake and Output Vital Signs (last 24 hours): Temp Pulse Resp BP Pulse Ox 98.3 F 86 20 181/84 H 99 05/09/18 08:09 05/09/18 08:09 05/09/18 08:09 05/09/18 08:09 05/09/18 08:09 Intake and Output: 05/09/18 05/09/18 06:59 18:59 Intake Total 1150 920 Balance 1150 920 - Medications Medications: Current Medications Docusate Sodium (Colace) 100 mg PO DAILY [facility] Last Admin: 05/09/18 09:42 Dose: 100 mg Enoxaparin Sodium (Lovenox) 40 mg SC DAILY [facility] Last Admin: 05/09/18 09:42 Dose: 40 mg Guaifenesin (Mucinex La) 600 mg PO BID [facility] Last Admin: 05/09/18 09:42 Dose: 600 mg Hydrocortisone (Cortizone 1% Cream) 0 gm TOP BID [facility] Last Admin: 05/09/18 09:42 Dose: 1 applic Sodium Chloride (Sodium Chloride 0.9%) 1,000 mls @ 100 mls/hr IV .Q10H [facility] Last Admin: 05/09/18 04:59 Dose: 100 mls/hr Ampicillin 500 mg/ Sodium (Chloride) 100 mls @ 100 mls/hr IVPB Q8 [facility]; Protocol Stop: 05/16/18 14:01 Losartan Potassium (Cozaar) 100 mg PO DAILY [facility] Last Admin: 05/09/18 09:42 Dose: 100 mg Magnesium Hydroxide (Milk Of Magnesia) 30 ml PO TID PRN PRN Reason: Constipation Last Admin: 05/08/18 21:19 Dose: 30 ml Naproxen (Anaprox) 275 mg PO DAILY PRN PRN Reason: Pain, Mild (1-3) Oxycodone/Acetaminophen (Percocet 5/325 Mg Tab) 1 tab PO Q4H PRN PRN Reason: Pain, moderate (4-7) Stop: 05/09/18 16:35 Last Admin: 05/09/18 08:35 Dose: 1 tab Pantoprazole Sodium (Protonix Ec Tab) 40 mg PO DAILY [facility] Last Admin: 05/09/18 09:42 Dose: 40 mg Zolpidem Tartrate (Ambien) 5 mg PO HS PRN PRN Reason: Insomnia Last Admin: 05/08/18 22:39 Dose: 5 mg - Labs Labs: 05/09/18 11:16 05/09/18 11:16
[2018-05-09] MEDS: Magnesium Hydroxide Susp 30 ml UD PO PRN (18:38)
[2018-05-10] MEDS: Oxycodone/Acetaminophen 5/325 mg Tab PO PRN ×2 (08:30→18:36)
[2018-05-10] MEDS: Hydrocortisone 1% Cream (30 GM) TOP SCH ×2 (09:03→18:33)
[2018-05-10] MEDS: guaiFENesin 600 mg ER Tab PO SCH ×2 (09:03→18:33)
[2018-05-10] MEDS: Pantoprazole 40 mg EC Tab PO SCH (09:03)
--- NOTE | 2018-05-10 10:31 | PN ---
DATE: 05/10/2018 SUBJECTIVE: The patient, Chrissy Mock, has back pain. She has been seen by neurosurgeon and our plan of care has been decided. Afebrile. The patient denies any chest pain, shortness of breath. She has UTI with gram-positive cocci and she is on ampicillin and we will await for identity and sensitivity. No fever, no abdominal pain, lower back. PHYSICAL EXAMINATION: VITAL SIGNS: Blood pressure 136/84, pulse 74, respiratory rate 16, temperature 99. LUNGS: Clear. CARDIOVASCULAR SYSTEM: S1 and S2 regular. ABDOMEN: Soft, nontender and bowel sounds are positive. ASSESSMENT: 1. Lumbar disk disease with severe degenerative changes with status post repair and chronic back pain, pain management. 2. Hypertension. 3. Urinary tract infection. PLAN: Subacute rehab, pain management, epidurals if possible. Jonnie Us MD
--- NOTE | 2018-05-10 22:20 | CP.PCM.PN ---
Subjective - Subjective Subjective: dictated Objective - Vital Signs/Intake and Output Vital Signs (last 24 hours): Temp Pulse Resp BP Pulse Ox 98.3 F 81 20 190/96 H 100 05/10/18 16:00 05/10/18 16:00 05/10/18 16:00 05/10/18 16:00 05/10/18 16:00 Intake and Output: 05/10/18 05/11/18 18:59 06:59 Intake Total 950 Output Total 2 Balance 948 - Medications Medications: Current Medications Docusate Sodium (Colace) 100 mg PO DAILY [facility] Last Admin: 05/10/18 09:02 Dose: 100 mg Enoxaparin Sodium (Lovenox) 40 mg SC DAILY [facility] Last Admin: 05/09/18 09:42 Dose: 40 mg Guaifenesin (Mucinex La) 600 mg PO BID [facility] Last Admin: 05/10/18 18:33 Dose: 600 mg Hydrocortisone (Cortizone 1% Cream) 0 gm TOP BID [facility] Last Admin: 05/10/18 18:33 Dose: 1 applic Ampicillin 500 mg/ Sodium (Chloride) 100 mls @ 100 mls/hr IVPB Q8 [facility]; Protocol Stop: 05/16/18 14:01 Last Admin: 05/10/18 13:45 Dose: 100 mls/hr Losartan Potassium (Cozaar) 100 mg PO DAILY [facility] Last Admin: 05/10/18 09:03 Dose: 100 mg Magnesium Hydroxide (Milk Of Magnesia) 30 ml PO TID PRN PRN Reason: Constipation Last Admin: 05/09/18 18:38 Dose: 30 ml Naproxen (Anaprox) 275 mg PO DAILY PRN PRN Reason: Pain, Mild (1-3) Last Admin: 05/09/18 19:56 Dose: 275 mg Oxycodone/Acetaminophen (Percocet 5/325 Mg Tab) 1 tab PO Q4H PRN PRN Reason: Pain, moderate (4-7) Stop: 05/12/18 22:33 Last Admin: 05/10/18 18:36 Dose: 1 tab Pantoprazole Sodium (Protonix Ec Tab) 40 mg PO DAILY [facility] Last Admin: 05/10/18 09:03 Dose: 40 mg Zolpidem Tartrate (Ambien) 5 mg PO HS PRN PRN Reason: Insomnia Last Admin: 05/09/18 23:09 Dose: 5 mg - Labs Labs: 05/09/18 11:16 05/09/18 11:16
--- NOTE | 2018-05-10 22:20 | CP.PCM.PN ---
Subjective - Subjective Subjective: dictated Objective - Vital Signs/Intake and Output Vital Signs (last 24 hours): Temp Pulse Resp BP Pulse Ox 98.3 F 81 20 190/96 H 100 05/10/18 16:00 05/10/18 16:00 05/10/18 16:00 05/10/18 16:00 05/10/18 16:00 Intake and Output: 05/10/18 05/11/18 18:59 06:59 Intake Total 950 Output Total 2 Balance 948 - Medications Medications: Current Medications Docusate Sodium (Colace) 100 mg PO DAILY [facility] Last Admin: 05/10/18 09:02 Dose: 100 mg Enoxaparin Sodium (Lovenox) 40 mg SC DAILY [facility] Last Admin: 05/09/18 09:42 Dose: 40 mg Guaifenesin (Mucinex La) 600 mg PO BID [facility] Last Admin: 05/10/18 18:33 Dose: 600 mg Hydrocortisone (Cortizone 1% Cream) 0 gm TOP BID [facility] Last Admin: 05/10/18 18:33 Dose: 1 applic Ampicillin 500 mg/ Sodium (Chloride) 100 mls @ 100 mls/hr IVPB Q8 [facility]; Protocol Stop: 05/16/18 14:01 Last Admin: 05/10/18 13:45 Dose: 100 mls/hr Losartan Potassium (Cozaar) 100 mg PO DAILY [facility] Last Admin: 05/10/18 09:03 Dose: 100 mg Magnesium Hydroxide (Milk Of Magnesia) 30 ml PO TID PRN PRN Reason: Constipation Last Admin: 05/09/18 18:38 Dose: 30 ml Naproxen (Anaprox) 275 mg PO DAILY PRN PRN Reason: Pain, Mild (1-3) Last Admin: 05/09/18 19:56 Dose: 275 mg Oxycodone/Acetaminophen (Percocet 5/325 Mg Tab) 1 tab PO Q4H PRN PRN Reason: Pain, moderate (4-7) Stop: 05/12/18 22:33 Last Admin: 05/10/18 18:36 Dose: 1 tab Pantoprazole Sodium (Protonix Ec Tab) 40 mg PO DAILY [facility] Last Admin: 05/10/18 09:03 Dose: 40 mg Zolpidem Tartrate (Ambien) 5 mg PO HS PRN PRN Reason: Insomnia Last Admin: 05/09/18 23:09 Dose: 5 mg - Labs Labs: 05/09/18 11:16 05/09/18 11:16
--- NOTE | 2018-05-11 04:05 | PN ---
DATE: 05/10/2018 SUBJECTIVE: The patient still has back pain. She denies any fever, chills, rigors. She has urine culture positive, pending. The patient's sensitivity results are pending. Urine cultures are positive for gram-positive cocci. PHYSICAL EXAMINATION: VITAL SIGNS: Blood pressure is 190/96, pulse 81, respiratory rate 20, temperature 98.3. LUNGS: Bilateral scattered rhonchi. CARDIOVASCULAR SYSTEM: S1, S2 regular. ABDOMEN: Soft, nontender. Bowel sounds are positive. ASSESSMENT: 1. Urinary tract infection. 2. Lumbar disk disease with chronic back pain. 3. Hypertension. PLAN: 1. Continue to monitor the patient. 2. The patient is for subacute rehab, pain management, possible epidural, pending neurosurgery referral. Jonnie Us MD
[2018-05-11] MEDS: Magnesium Hydroxide Susp 30 ml UD PO PRN (05:34)
[2018-05-11] MEDS ORDERED: MethylPREDNISolone Depo 40 mg/ml Inj ONE (07:50)
[2018-05-11] MEDS ORDERED: Iohexol 240 (50 ml) ONE (07:50)
[2018-05-11] MEDS ORDERED: Bupivacaine 0.25% 20 ML INJ IJ ONE (07:50)
[2018-05-11] MEDS ORDERED: Bupivacaine HCl 0.5% PF (10 ml) Inj ONE (08:01)
[2018-05-11] MEDS ORDERED: Sodium Chloride 0.9% 0 ML IV ONE (08:12)
[2018-05-11] MEDS ORDERED: Bacitracin 500 Units/gm Oint Foilpak UD ONE (08:12)
[2018-05-11] MEDS ORDERED: Midazolam 2 MG/2 ML VIAL ONE (08:25)
[2018-05-11] MEDS: guaiFENesin 600 mg ER Tab PO SCH ×3 (09:31→17:38)
[2018-05-11] MEDS: Hydrocortisone 1% Cream (30 GM) TOP SCH ×2 (09:31→10:38)
[2018-05-11] MEDS: Pantoprazole 40 mg EC Tab PO SCH ×2 (09:32→10:39)
--- NOTE | 2018-05-11 12:05 | RAD ---
Date of service: 05/11/2018 PROCEDURE: Intraoperative Fluoroscopy. HISTORY: LUMBAR SPONDYLOSIS FINDINGS: Fluoroscopic assistance was provided for lumbar epidural injection. Please refer to the operative report from KEVIN Lindsey.
[2018-05-11 18:08] VITALS: RESP 20
[2018-05-11] MEDS: Oxycodone/Acetaminophen 5/325 mg Tab PO PRN (21:37)
--- NOTE | 2018-05-11 22:43 | CP.PCM.PN ---
Subjective - Subjective Subjective: dictated Objective - Vital Signs/Intake and Output Vital Signs (last 24 hours): Temp Pulse Resp BP Pulse Ox 98.3 F 102 H 20 172/86 H 98 05/11/18 18:00 05/11/18 18:00 05/11/18 18:00 05/11/18 18:00 05/11/18 18:00 Intake and Output: 05/11/18 05/12/18 18:59 06:59 Intake Total 370 Balance 370 - Medications Medications: Current Medications Docusate Sodium (Colace) 100 mg PO DAILY [facility] Last Admin: 05/11/18 10:39 Dose: 100 mg Enoxaparin Sodium (Lovenox) 40 mg SC DAILY [facility] Last Admin: 05/09/18 09:42 Dose: 40 mg Guaifenesin (Mucinex La) 600 mg PO BID [facility] Last Admin: 05/11/18 17:38 Dose: 600 mg Hydrochlorothiazide (Microzide) 12.5 mg PO DAILY [facility] Last Admin: 05/11/18 10:39 Dose: 12.5 mg Hydrocortisone (Cortizone 1% Cream) 0 gm TOP BID [facility] Last Admin: 05/11/18 10:38 Dose: 1 applic Ampicillin 500 mg/ Sodium (Chloride) 100 mls @ 100 mls/hr IVPB Q8 [facility]; Protocol Stop: 05/16/18 14:01 Last Admin: 05/11/18 21:26 Dose: 100 mls/hr Losartan Potassium (Cozaar) 100 mg PO DAILY [facility] Last Admin: 05/11/18 10:39 Dose: 100 mg Magnesium Hydroxide (Milk Of Magnesia) 30 ml PO TID PRN PRN Reason: Constipation Last Admin: 05/11/18 05:34 Dose: 30 ml Naproxen (Anaprox) 275 mg PO DAILY PRN PRN Reason: Pain, Mild (1-3) Last Admin: 05/09/18 19:56 Dose: 275 mg Nebivolol (Bystolic) 5 mg PO DAILY [facility] Last Admin: 05/11/18 21:27 Dose: 5 mg Oxycodone/Acetaminophen (Percocet 5/325 Mg Tab) 1 tab PO Q4H PRN PRN Reason: Pain, moderate (4-7) Stop: 05/12/18 22:33 Last Admin: 05/11/18 21:37 Dose: 1 tab Pantoprazole Sodium (Protonix Ec Tab) 40 mg PO DAILY [facility] Last Admin: 05/11/18 10:39 Dose: 40 mg Zolpidem Tartrate (Ambien) 5 mg PO HS PRN PRN Reason: Insomnia Last Admin: 05/11/18 21:28 Dose: 5 mg - Labs Labs: 05/09/18 11:16 05/09/18 11:16
--- NOTE | 2018-05-12 04:12 | PN ---
DATE: 05/11/2018 SUBJECTIVE: The patient is having some headache, neck pain. She denies any dizziness. She has back pain, and she was seen by Neurosurgery. She denies any nausea, vomiting. She has postoperative rehab. PHYSICAL EXAMINATION: VITAL SIGNS: Blood pressure 172/86, pulse 102, respiratory rate 20, temperature 98.3. LUNGS: Bilaterally clear. CARDIOVASCULAR EXAM: S1, S2 regular. ABDOMEN: Soft. Nontender. Bowel sounds are positive. SPINE: The patient has deformity, inability to stand up. ASSESSMENT: 1. Uncontrolled hypertension with headache. 2. Lumbar disk disease with chronic back pain. 3. Urinary tract infection. 4. Anemia. PLAN: Physical therapy. Rehab. [facility]. Monitor patient. Jonnie Us MD
--- NOTE | 2018-05-12 06:24 | OP ---
PROCEDURE DATE: 05/11/2018 PREOPERATIVE DIAGNOSIS: Spinal stenosis. POSTOPERATIVE DIAGNOSIS: Spinal stenosis. OPERATION: Left L5-S1 lumbar epidural steroid injection. SURGEON: Wes Eldridge MD. ANESTHESIA: General with intravenous sedation. DESCRIPTION OF PROCEDURE The patient was brought to the operating room, placed on the operating table in the prone position. General anesthesia was achieved intravenously and the patient's back was sterilely prepped and draped. The site for the needle insertion was located under fluoroscopy and infiltrated with lidocaine. A 20-gauge Tuohy needle was inserted down to the level of superior lamina of S1 and slowly advanced cephalad, was felt to go through the ligamentum. At that time, there is [id number] to the attached syringe but no fluid on draw back. In order to confirm location of the needle, an epidurogram of the lumbar spine was performed, this will be dictated separately. After completion of the epidurogram, the patient received epidural injection. A mixture of normal saline and 80 mg of Depo-Medrol was slowly injected into the epidural space. It flowed freely without resistance. The needle was then withdrawn. The bacitracin and Band-Aid dressing applied. The patient was gently transferred back onto a stretcher and taken to recovery in stable condition. She tolerated the procedure well. PREOPERATIVE DIAGNOSIS: Spinal stenosis. POSTOPERATIVE DIAGNOSIS: Spinal stenosis. OPERATION: Epidurogram of the lumbar spine. SURGEON: Wes Eldridge MD. DESCRIPTION OF PROCEDURE: After the patient was positioned prone on the operating table with her back sterilely prepped and draped, then the needle placed was felt to be epidural space, an epidurogram of lumbar spine was performed. A 1.5 mL of Omnipaque 240 contrast was slowly injected through the needle and flowed freely without resistance. A visualized and interpreted fluoroscopic monitor there is noted outline in the epidural space with filling of the left S1 root canal. Having verified location of the needle, we then proceeded with administration of the patient's epidural injection. Wes Eldridge MD
[2018-05-12] MEDS: Oxycodone/Acetaminophen 5/325 mg Tab PO PRN ×2 (08:33→15:10)
[2018-05-12] MEDS: Hydrocortisone 1% Cream (30 GM) TOP SCH ×2 (11:55→18:25)
[2018-05-12] MEDS: Pantoprazole 40 mg EC Tab PO SCH (11:58)
[2018-05-12] MEDS: guaiFENesin 600 mg ER Tab PO SCH ×2 (11:59→18:24)
--- NOTE | 2018-05-12 15:24 | CP.PCM.PN ---
Subjective - Date & Time of Evaluation Date of Evaluation: 05/12/18 Time of Evaluation: 15:24 - Subjective Subjective: PATIENT SEEN AND EXAMINED AT THE BEDSIDE Objective - Vital Signs/Intake and Output Vital Signs (last 24 hours): Temp Pulse Resp BP Pulse Ox 97.9 F 83 20 152/89 H 97 05/12/18 08:00 05/12/18 08:00 05/12/18 08:00 05/12/18 08:00 05/12/18 08:00 Intake and Output: 05/12/18 05/12/18 06:59 18:59 Intake Total 100 340 Balance 100 340 - Medications Medications: Current Medications Docusate Sodium (Colace) 100 mg PO DAILY [facility] Last Admin: 05/12/18 11:58 Dose: 100 mg Enoxaparin Sodium (Lovenox) 40 mg SC DAILY [facility] Last Admin: 05/09/18 09:42 Dose: 40 mg Guaifenesin (Mucinex La) 600 mg PO BID [facility] Last Admin: 05/12/18 11:59 Dose: 600 mg Hydrochlorothiazide (Microzide) 12.5 mg PO DAILY [facility] Last Admin: 05/12/18 11:58 Dose: 12.5 mg Hydrocortisone (Cortizone 1% Cream) 0 gm TOP BID [facility] Last Admin: 05/12/18 11:55 Dose: 1 applic Ampicillin 500 mg/ Sodium (Chloride) 100 mls @ 100 mls/hr IVPB Q8 [facility]; Protocol Stop: 05/16/18 14:01 Last Admin: 05/12/18 05:22 Dose: 100 mls/hr Losartan Potassium (Cozaar) 100 mg PO DAILY [facility] Last Admin: 05/12/18 11:58 Dose: 100 mg Magnesium Hydroxide (Milk Of Magnesia) 30 ml PO TID PRN PRN Reason: Constipation Last Admin: 05/11/18 05:34 Dose: 30 ml Naproxen (Anaprox) 275 mg PO DAILY PRN PRN Reason: Pain, Mild (1-3) Last Admin: 05/09/18 19:56 Dose: 275 mg Nebivolol (Bystolic) 5 mg PO DAILY [facility] Last Admin: 05/12/18 11:59 Dose: 5 mg Oxycodone/Acetaminophen (Percocet 5/325 Mg Tab) 1 tab PO Q4H PRN PRN Reason: Pain, moderate (4-7) Stop: 05/12/18 22:33 Last Admin: 05/12/18 08:33 Dose: 1 tab Pantoprazole Sodium (Protonix Ec Tab) 40 mg PO DAILY [facility] Last Admin: 05/12/18 11:58 Dose: 40 mg Zolpidem Tartrate (Ambien) 5 mg PO HS PRN PRN Reason: Insomnia Last Admin: 05/11/18 21:28 Dose: 5 mg - Labs Labs: 05/09/18 11:16 05/09/18 11:16 Assessment and Plan - Assessment and Plan (Free Text) Assessment: FOLLOW UP WITH DR DESIR ID HIS OFFICE -----CALL FOR APPOINTMENT FOLLOW UP WITH DR JANG CALL FOR APPOINTMENT CONTINUE HOME MEDICATION NEW PRESCRIPTION GIVEN AMPICILLIN 500 MG PO Q8H FOR 3 DAYS BYSTOLIC 5 MG PO DAILY MICROZIDE 12.5 MG PO DAILY COLACE 100 MG PO DAILY FOR 5 DAYS PERCOCET PO Q4H PRN FOR 5 DAYS ACTIVITY TOLERATED AND HOME PHYSICAL THERAPY EVAL AND TX PER THERAPIST RECOMMENDATION CALL DR DESIR OR GO TO THE EMERGENCY ROOM IF SYMPTOM RETURN OR WORSENING
[2018-05-12 16:06] VITALS: TEMP 97.3; O2SAT 95
[2018-05-12] MEDS ORDERED: Nitroglycerin 2% Ointment Foilpak UD TOP ONE (17:15)
[2018-05-12 18:26] VITALS: BP 146/68; PULSE 70
--- NOTE | 2018-05-12 21:35 | CP.PCM.DIS ---
Provider - Provider Date of Admission: 05/06/18 16:14 Attending physician: Jonnie Us MD Consults: 05/06/18 16:15 Physician Consult Stat Comment: Consulting Provider: Wes Jang Consulting Physician: Wes Jang Reason for Consult: back pain 05/06/18 20:49 Nursing Referral for Palliative Care Routine Comment: Physician Instructions: Reason For Exam: score of 4 Hospital Course - Lab Results Lab Results: Micro Results 05/08/18 06:02 Urine,Clean Catch Urine Culture - Final Gram Positive Cocci Most Recent Lab Values WBC 5.0 K/uL (4.8-10.8) 05/09/18 11:16 RBC 3.57 Mil/uL (3.80-5.20) L 05/09/18 11:16 Hgb 10.7 g/dL (11.0-16.0) L D 05/09/18 11:16 Hct 32.4 % (34.0-47.0) L 05/09/18 11:16 MCV 90.7 fL (81.0-99.0) 05/09/18 11:16 MCH 29.9 pg (27.0-31.0) 05/09/18 11:16 MCHC 32.9 g/dL (33.0-37.0) L 05/09/18 11:16 RDW 14.7 % (11.5-14.5) H 05/09/18 11:16 Plt Count 201 K/uL (130-400) D 05/09/18 11:16 MPV 8.6 fL (7.2-11.7) 05/09/18 11:16 Neut % (Auto) 71.6 % (50.0-75.0) 05/09/18 11:16 Lymph % (Auto) 13.1 % (20.0-40.0) L 05/09/18 11:16 [place] % (Auto) 10.3 % (0.0-10.0) H 05/09/18 11:16 Eos % (Auto) 4.2 % (0.0-4.0) H 05/09/18 11:16 Baso % (Auto) 0.8 % (0.0-2.0) 05/09/18 11:16 Neut # (Auto) 3.6 K/uL (1.8-7.0) 05/09/18 11:16 Lymph # (Auto) 0.7 K/uL (1.0-4.3) L 05/09/18 11:16 [place] # (Auto) 0.5 K/uL (0.0-0.8) 05/09/18 11:16 Eos # (Auto) 0.2 K/uL (0.0-0.7) 05/09/18 11:16 Baso # (Auto) 0.0 K/uL (0.0-0.2) 05/09/18 11:16 Sodium 135 mmol/L (132-148) 05/09/18 11:16 Potassium 3.6 mmol/L (3.6-5.2) 05/09/18 11:16 Chloride 103 mmol/L (98-107) 05/09/18 11:16 Carbon Dioxide 27 mmol/L (22-30) 05/09/18 11:16 Anion Gap 9 (10-20) L 05/09/18 11:16 BUN 16 mg/dL (7-17) 05/09/18 11:16 Creatinine 0.6 mg/dL (0.7-1.2) L 05/09/18 11:16 Est GFR ( Amer) > 60 05/09/18 11:16 Est GFR (Non-Af Amer) > 60 05/09/18 11:16 Random Glucose 97 mg/dL (65-105) 05/09/18 11:16 Calcium 9.2 mg/dl (8.6-10.4) 05/09/18 11:16 Total Bilirubin 0.9 mg/dL (0.2-1.3) 05/06/18 17:35 AST 39 U/L (14-36) H D 05/06/18 17:35 ALT 16 U/L (9-52) 05/06/18 17:35 Alkaline Phosphatase 114 U/L (38-126) 05/06/18 17:35 Total Protein 8.3 g/dL (6.3-8.3) 05/06/18 17:35 Albumin 4.7 g/dL (3.5-5.0) 05/06/18 17:35 Globulin 3.7 gm/dL (2.2-3.9) 05/06/18 17:35 Albumin/Globulin Ratio 1.3 (1.0-2.1) 05/06/18 17:35 Urine Color Yellow (YELLOW) 05/06/18 21:27 Urine Clarity Hazy (Clear) 05/06/18 21:27 Urine pH 5.0 (5.0-8.0) 05/06/18 21:27 Ur Specific [place] 1.013 (1.003-1.030) 05/06/18 21:27 Urine Protein Negative mg/dL (NEGATIVE) 05/06/18 21:27 Urine Glucose (UA) Normal mg/dL (Normal) 05/06/18 21:27 Urine Ketones Negative mg/dL (NEGATIVE) 05/06/18 21: Urine Blood Negative (NEGATIVE) 05/06/18 21: Urine Nitrate Negative (NEGATIVE) 05/06/18 21:27 Urine Bilirubin Negative (NEGATIVE) 05/06/18 21:27 Urine Urobilinogen Normal mg/dL (0.2-1.0) 05/06/18 21:27 Ur Leukocyte Esterase 3+ [place]/uL (Negative) H 05/06/18 21:27 Urine WBC (Auto) 128 /hpf (0-5) H 05/06/18 21:27 Urine RBC (Auto) 3 /hpf (0-3) 05/06/18 21:27 Ur Squamous Epith Cells 7 /hpf (0-5) H 05/06/18 21:27 Urine Bacteria Rare (<OCC) 05/06/18 21:27 Hyaline Casts 11-20 /lpf (0-2) H 05/06/18 21:27 Discharge Plan - Discharge Medications Prescriptions: AMPicillin [Ampicillin] 500 mg PO Q8H 3 Days cap Nebivolol [Bystolic] 5 mg PO DAILY 30 Days tab Docusate [Colace] 100 mg PO DAILY 5 Days cap Hydrochlorothiazide [Microzide] 12.5 mg PO DAILY 30 Days cap oxyCODONE/Acetaminophen [Percocet 5/325 mg Tab] 1 tab PO Q4H PRN #30 tab PRN Reason: Pain, Moderate (4-7) - Follow Up Plan Condition: STABLE Disposition: HOME/ ROUTINE Instructions: Nebivolol, Upper Back Pain (DC), Ampicillin, Docusate, Hydrochlorothiazide, Oxycodone and Acetaminophen Additional Instructions: FOLLOW UP WITH DR US ID HIS OFFICE -----CALL FOR APPOINTMENT FOLLOW UP WITH DR JANG CALL FOR APPOINTMENT CONTINUE HOME MEDICATION NEW PRESCRIPTION GIVEN AMPICILLIN 500 MG PO Q8H FOR 3 DAYS BYSTOLIC 5 MG PO DAILY MICROZIDE 12.5 MG PO DAILY COLACE 100 MG PO DAILY FOR 5 DAYS PERCOCET PO Q4H PRN FOR 5 DAYS ACTIVITY TOLERATED AND HOME PHYSICAL THERAPY EVAL AND TX PER THERAPIST RECOMMENDATION CALL DR US OR GO TO THE EMERGENCY ROOM IF SYMPTOM RETURN OR WORSENING Referrals: Wes Jang MD [Staff Provider] - Jonnie Us MD [Staff Provider] -
--- NOTE | 2018-05-13 08:54 | DS ---
DISCHARGE DIAGNOSES: 1. Lumbar disk disease with chronic low back pain. 2. Urinary tract infection. 3. Hypertension. 4. Osteoarthritis. HISTORY OF PRESENT ILLNESS: This is a 77-year-old female well known to me with history of hypertension, osteoarthritis, history of two lower back surgeries and the patient underwent an MRI on an outpatient basis and the patient was referred to emergency room because of the intractable nature of her back pain. The patient was seen by Neurosurgery. The patient was started on pain medications. Underwent CT of the lumbosacral spine. The patient's head and neck pain improved with blood pressure control. The patient did well and the patient is for discharge. The patient needs physical therapy, rehab, pain medication. Condition upon discharge stable. PHYSICAL EXAMINATION: VITAL SIGNS: Blood pressure 126/68, pulse 70, respiratory rate 20, temperature 97.3. LUNGS: Clear. CARDIOVASCULAR SYSTEM: S1 and S2 regular. ABDOMEN: Soft. LABORATORY DATA: WBC 5, hemoglobin 10.7, hematocrit 32.4, and platelets 201. Sodium 135, potassium 3.6, chloride 103, bicarb 27, BUN 16, and creatinine 0.6. Urinalysis, urine was positive. The patient is on antibiotics. CONDITION UPON DISCHARGE: Stable. Jonnie Us MD
== END 2018-05-12 19:00 | disposition home or self-care (01) | DRG 552 ==
LOC: C.ER 11:55 → C.9E 16:14 → C.3T 05-07 14:50
PROVIDERS: ADMIT Internal Medicine; ATTEND Internal Medicine
PROC: 3E0R33Z Introduction of Anti-inflammatory into Spinal Canal, Percutaneous Approach (ICD-10-PCS; principal; 2018-05-11 11:45)
DX: M48.061 Spinal stenosis, lumbar region without neurogenic claudication (principal); N39.0 Urinary tract infection, site not specified; D32.1 Benign neoplasm of spinal meninges; D64.9 Anemia, unspecified; G47.00 Insomnia, unspecified; G47.30 Sleep apnea, unspecified; G89.29 Other chronic pain; I10 Essential (primary) hypertension; M81.0 Age-related osteoporosis without current pathological fracture; Z98.1 Arthrodesis status

== ENCOUNTER 2018-05-22 12:31 | Inpatient (IN) | payer MEDICARE ==
[2018-05-22 12:32] VITALS: BMI 27.9
[2018-05-22] MEDS ORDERED: Sodium Chloride 0.9% 500 ML IV ONE ×2 (13:10→22:08)
[2018-05-22 14:01] LABS: BASO % 0.3 % (0.0-2.0); EOS # 0.1 K/uL (0.0-0.7); EOS % 0.8 % (0.0-4.0); HEMOGLOBIN 12.4 g/dL (11.0-16.0); LYMPH # 0.8 K/uL (1.0-4.3); LYMPH % 9.1 % (20.0-40.0); MEAN CELL VOLUME 89.5 fL (81.0-99.0); MEAN CORPUSCULAR HEMOGLOBIN 30.2 pg (27.0-31.0); MEAN CORPUSCULAR HGB CONC 33.7 g/dL (33.0-37.0); MEAN PLATELET VOLUME 8.7 fL (7.2-11.7); MONO # 0.7 K/uL (0.0-0.8); MONO % 8.1 % (0.0-10.0); NEUT % 81.7 % (50.0-75.0); PLATELET COUNT 305 K/uL (130-400); RBC 4.11 Mil/uL (3.80-5.20); RED CELL DISTRIBUTION WIDTH 14.4 % (11.5-14.5); WHITE BLOOD COUNT 8.6 K/uL (4.8-10.8)
[2018-05-22 14:20] LABS: PROTHROMBIN TIME 11.1 SECONDS (9.7-12.2)
--- NOTE | 2018-05-22 14:21 | RAD ---
Date of service: 05/22/2018 HISTORY: chest pain COMPARISON: Chest radiographs 11/04/2017. FINDINGS: LUNGS: No active pulmonary disease. PLEURA: No significant pleural effusion identified, no pneumothorax apparent. CARDIOVASCULAR: No aortic atherosclerotic calcification present. Normal cardiac size. No pulmonary vascular congestion. OSSEOUS STRUCTURES: Added spinal fusion hardware is identified to now include the thoracic spine with previous radiograph demonstrating upper thoracic fusion. VISUALIZED UPPER ABDOMEN: Normal. OTHER FINDINGS: None. IMPRESSION: No interval acute cardiopulmonary disease appreciable. Extensive thoracolumbar spinal fusion hardware identified in the interval.
[2018-05-22 14:35] LABS: ALB/GLOB RATIO 1.3 (1.0-2.1); ALBUMIN 3.9 g/dL (3.5-5.0); ALT/SGPT 8 U/L (9-52); AST/SGOT 38 U/L (14-36); BLOOD UREA NITROGEN 20 mg/dL (7-17); CALCIUM 9.2 mg/dl (8.6-10.4); GFR NON-AFRICAN AMERICAN > 60; LIPASE 98 U/L (23-300)
--- NOTE | 2018-05-22 14:40 | C.PDOC ---
History Of Present Illness 77 y/o female with a PMHx of diverticulosis and hypertension comes in for evaluation of bright red blood per rectum x2 episodes this morning. No vomiting or hematemesis. Patient also complains of mild abdominal pain. She denies any w eakness, dizziness, chest pain, SOB, or rectal pain. Time Seen by Provider: 05/22/18 13:01 Chief Complaint (Nursing): GI Problem History Per: Patient History/Exam Limitations: no limitations Onset/Duration Of Symptoms: Hrs Current Symptoms Are (Timing): Still Present Number Of Bleeding Episodes: Multiple: (2) Severity: Mild Quality Of Discomfort: "Pain" Associated Symptoms: Rectal Bleeding Past Medical History Reviewed: Historical Data, Nursing Documentation, Vital Signs Vital Signs: Last Vital Signs Temp 98 F 05/22/18 12:35 Pulse 70 05/22/18 12:35 Resp 18 05/22/18 12:35 BP 189/84 H 05/22/18 12:35 Pulse Ox 99 05/22/18 12:35 - Medical History PMH: Anxiety, Arthritis (knee ; back), Colonic Polyps, Depression, Fractures (lumbar), HTN, Hypercholesterolemia, Osteoporosis, Peripheral Edema, Sleep Apnea (has c-pap at home not using. being assessed for a different device) Denies: Chronic Kidney Disease Surgical History: [facility] COLONOSCOPY (08/11/13) ESOPHAGOGASTRODUODENOSCOPY [EGD] W/CLOSED BIOPSY (08/11/13) EXCISION OF DESCENDING COLON, ENDO, DIAGN (12/06/17) EXCISION OF SMALL INTESTINE, ENDO, DIAGN (12/06/17) FUSION THOR JT W AUTOL SUB, POST APPR P COL, OPEN (11/25/17) INTRODUCTION OF ANTI-INFLAM INTO SPINAL CANAL, PERC APPROACH (05/06/18) RELEASE LUMBAR NERVE, OPEN APPROACH (11/25/17) VENOUS CATHETERIZATION NEC (12/30/14) Family History: States: Unknown Family Hx - Social History Hx Alcohol Use: No Hx Substance Use: No - Immunization History Hx Tetanus Toxoid Vaccination: Yes Hx Influenza Vaccination: Yes Hx Pneumococcal Vaccination: Yes Review Of Systems Constitutional: Negative for: Fever, Chills Eyes: Negative for: Vision Change Cardiovascular: Negative for: Chest Pain, Light Headedness Respiratory: Negative for: Shortness of Breath Gastrointestinal: Positive for: Abdominal Pain (mild), Other (Bright red blood per rectum x2). Negative for: Nausea, Vomiting, Diarrhea Neurological: Negative for: Weakness, Numbness, Dizziness Physical Exam - Physical Exam Appears: Non-toxic, No Acute Distress Skin: Warm, Dry Head: Atraumatic, Normacephalic Eye(s): bilateral: Normal Inspection, PERRL, EOMI Oral Mucosa: Moist Neck: Normal ROM Chest: Symmetrical Cardiovascular: Rhythm Regular, No Murmur Respiratory: Normal Breath Sounds, No Accessory Muscle Use Gastrointestinal/Abdominal: Soft, Tenderness (Minimal non-focal tenderness), No Distention, No Guarding, No Rebound Rectal: Heme Positive (Gross blood per rectum), No Hemorrhoids (externally) Extremity: Bilateral: Atraumatic, Normal Color And Temperature Pulses: Left Dorsalis Pedis: Normal, Right Dorsalis Pedis: Normal Neurological/Psych: Oriented x3, Normal Speech ED Course And Treatment - Laboratory Results Result Diagrams: 05/22/18 17:53 05/22/18 14:07 Lab Results: PT 11.1 SECONDS (9.7-12.2) 05/22/18 14:07 INR 1.0 05/22/18 14:07 APTT 28 SECONDS (21-34) 05/22/18 14:07 Total Bilirubin 0.9 mg/dL (0.2-1.3) 05/22/18 14:07 AST 38 U/L (14-36) H 05/22/18 14:07 ALT 8 U/L (9-52) L D 05/22/18 14:07 Alkaline Phosphatase 96 U/L (38-126) 05/22/18 14:07 Total Protein 7.1 g/dL (6.3-8.3) 05/22/18 14:07 Albumin 3.9 g/dL (3.5-5.0) 05/22/18 14:07 Globulin 3.1 gm/dL (2.2-3.9) 05/22/18 14:07 Albumin/Globulin Ratio 1.3 (1.0-2.1) 05/22/18 14:07 Lipase 98 U/L (23-300) 05/22/18 14:07 O2 Sat by Pulse Oximetry: 99 (RA) Pulse Ox Interpretation: Normal - Other Rad CXR X-Ray: Read By Radiologist Interpretation: Accession No. : [id number]. Patient Name / ID : ROSA GOOD / [id number]. Exam Date : 05/22/2018 13:23:08 ( Approved ). Study Comment : Sex / Age : F / 77Y. Creator : Niels Chavis MD. Dictator : Niels Chavis MD. Group Reservations Coordinator : Datastage Developer : Niels Chavis MD. Approver2 : Report Date : 05/22/2018 14:17:27. My Comment : . Date of service: 05/22/2018. HISTORY: chest pain. COMPARISON: Chest radiographs 11/04/2017. FINDINGS: LUNGS: No active pulmonary disease. PLEURA: No significant pleural effusion identified, no pneumothorax apparent. CARDIOVASCULAR: No aortic atherosclerotic calcification present. Normal cardiac size. No pulmonary vascular congestion. OSSEOUS STRUCTURES: Added spinal fusion hardware is identified to now include the thoracic spine with previous radiograph demonstrating upper thoracic fusion. VISUALIZED UPPER ABDOMEN: Normal. OTHER FINDINGS: None. IMPRESSION: No interval acute cardiopulmonary disease appreciable. Extensive thoracolumbar spinal fusion hardware identified in the interval. - CT Scan/US CT Abd/Pelvis Other Rad Studies (CT/US): Read By Radiologist, Radiology Report Reviewed CT/US Interpretation: Accession No. : [id number]. Patient Name / ID : ROSA GOOD / [id number]. Exam Date : 05/22/2018 16:36:42 ( Approved ). Study Comment : Sex / Age : F / 77Y. Creator : Neeraj Greene MD. Dictator : Neeraj Greene MD. Group Reservations Coordinator : Datastage Developer : Neeraj Greene MD. Approver2 : Report Date : 05/22/2018 17:18:11. My Comment : . Date of service: 05/22/2018. PROCEDURE: CT Abdomen and Pelvis with contrast. HISTORY: gi bleed. COMPARISON: CT scan of the abdomen pelvis dated 12/06/2017. TECHNIQUE: Contrast dose: 100 mL Omnipaque 300. Radiation dose: Total exam DLP = 349.35 mGy-cm. This CT exam was performed using one or more of the following dose reduction techniques: Automated exposure control, adjustment of the mA and/or kV according to patient size, and/or use of iterative reconstruction technique. FINDINGS: LOWER THORAX: Cardiomegaly. Coronary arterial and valvular calcifications. No focal consolidation or pleural effusion. LIVER: Stable 8 mm right hepatic dome cyst. No gross lesion or ductal dilatation. GALLBLADDER AND BILE DUCTS: Prior cholecystectomy with surgical clips in place and expected CBD dilatation. PANCREAS: Unremarkable. No gross lesion or ductal dilatation. SPLEEN: Unremarkable. ADRENALS: Unremarkable. No mass. KIDNEYS AND URETERS: 6 mm right upper pole nonobstr uctive calculus. No hydronephrosis. No solid mass. VASCULATURE: Unremarkable. No aortic aneurysm. Aortic atherosclerotic calcifications present. BOWEL: Small hiatal hernia. Colonic diverticulosis. Hyperenhancement with probable trace amount intravenous contrast layering within the distal descending/sigmoid junction colonic lumen. No obstruction. No gross mural thickening. APPENDIX: Normal appendix. PERITONEUM: Unremarkable. No free fluid. No free air. LYMPH NODES: Unremarkable. No enlarged lymph nodes. BLADDER: Unremarkable. REPRODUCTIVE: Unremarkable. BONES: No acute fracture. Stable L1 vertebral compression fracture. Spinal fixation rods from T10-L3. Spinal degenerative changes. OTHER FINDINGS: None. IMPRESSION: Findings most consistent with diverticular gastrointestinal bleed at the distal descending/sigmoid junction. Additional stable findings as above. Findings given to Dr. Love by Dr. Zapata at 5:10 p.m. on 05/22/2018. - Physician Consult Information Time Consulting Physician Contacted: 15:10 Physician Contacted: Sravan Chapman Outcome Of Conversation: Notified of GI consult. 17:[address] Chapman will come to evaluate patient in the ED. Medical Decision Making Medical Decision Making: Impression: Gross blood per rectum Plan: --Labs --EKG --CXR --IV fluids Labs and imaging reviewed. 14:44 CT Abdomen/Pelvis ordered with IV contrast. Patient has had 3 episodes of rectal bleed in the ED. Discussed case with Dr. Chapman and the GI fellow. Will repeat H&H. Discussed case with Dr. Us, accepts patient to service. Labs reviewed, hemoglobin has dropped [address] Chapman is at bedside, evaluating patient. Requests that patient be admitted to ICU. Spoke with Dr. Wahl, who accepts patient to ICU. Disposition Discussed With DrIram: Sravan Chapman Doctor Will See Patient In The: ED Counseled Patient/Family Regarding: Studies Performed, Diagnosis - Disposition Disposition: HOSPITALIZED Disposition Time: 18:04 Condition: CRITICAL - Clinical Impression Clinical Impression: GI bleed - Scribe Statement The provider has reviewed the documentation as recorded by the Prince Banuelos Provider Attestation: All medical record entries made by the Prince were at my direction and personally dictated by me. I have reviewed the chart and agree that the record accurately reflects my personal performance of the history, physical exam, medical decision making, and the department course for this patient. I have also personally directed, reviewed, and agree with the discharge instructions and disposition. Decision To Admit - Pt Status Changed To: Hospital Disposition Of: Inpatient - Admit Certification Admit to Inpatient:: After my assessment, the patient will require hospitalization for at least two midnights. This is because of the severity of symptoms shown, intensity of services needed, and/or the medical risk in this patient being treated as an outpatient. - InPatient: Physician Admission Certification: I certify that this patient requires 2 or more midnights of care for the following reason:: lower GI bleed - . Bed Request Type: ICU Admitting Physician: Jonnie Us Patient Diagnosis: GI bleed
[2018-05-22 14:47] LABS: BANDS 2 % (0-2); EOSINOPHIL 1 % (0-4); LYMPHOCYTE 4 % (20-40); MONOCYTE 6 % (0-10); NEUTROPHIL 87 % (50-75); PLATELET ESTIMATE NORMAL (NORMAL); TOTAL CELLS COUNTED 100
[2018-05-22 14:52] LABS: SQUAMOUS EPITHIAL 2 /hpf (0-5); URINE BILIRUBIN NEGATIVE (NEGATIVE); URINE BLOOD 3+ (NEGATIVE); URINE CLARITY Clear (Clear); URINE COLOR Yellow (YELLOW); URINE GLUCOSE (UA) NORMAL (Normal); URINE LEUKOCYTE ESTERASE NEG Leu/uL (Negative); URINE PROTEIN NEGATIVE (NEGATIVE); URINE UROBILINOGEN NORMAL mg/dL (0.2-1.0)
[2018-05-22 15:20] LABS: OSMOLALITY,URINE 501 mosm/kg (300-1000)
[2018-05-22] MEDS ORDERED: Iohexol 300 100 ML IJ ONE (16:16)
--- NOTE | 2018-05-22 17:21 | CT ---
Date of service: 05/22/2018 PROCEDURE: CT Abdomen and Pelvis with contrast HISTORY: gi bleed COMPARISON: CT scan of the abdomen pelvis dated 12/06/2017 TECHNIQUE: Contrast dose: 100 mL Omnipaque 300 Radiation dose: Total exam DLP = 349.35 mGy-cm. This CT exam was performed using one or more of the following dose reduction techniques: Automated exposure control, adjustment of the mA and/or kV according to patient size, and/or use of iterative reconstruction technique. FINDINGS: LOWER THORAX: Cardiomegaly. Coronary arterial and valvular calcifications. No focal consolidation or pleural effusion. LIVER: Stable 8 mm right hepatic dome cyst. No gross lesion or ductal dilatation. GALLBLADDER AND BILE DUCTS: Prior cholecystectomy with surgical clips in place and expected CBD dilatation. PANCREAS: Unremarkable. No gross lesion or ductal dilatation. SPLEEN: Unremarkable. ADRENALS: Unremarkable. No mass. KIDNEYS AND URETERS: 6 mm right upper pole nonobstructive calculus. No hydronephrosis. No solid mass. VASCULATURE: Unremarkable. No aortic aneurysm. Aortic atherosclerotic calcifications present. BOWEL: Small hiatal hernia. Colonic diverticulosis. Hyperenhancement with probable trace amount intravenous contrast layering within the distal descending/sigmoid junction colonic lumen. No obstruction. No gross mural thickening. APPENDIX: Normal appendix. PERITONEUM: Unremarkable. No free fluid. No free air. LYMPH NODES: Unremarkable. No enlarged lymph nodes. BLADDER: Unremarkable. REPRODUCTIVE: Unremarkable. BONES: No acute fracture. Stable L1 vertebral compression fracture. Spinal fixation rods from T10-L3. Spinal degenerative changes. OTHER FINDINGS: None. IMPRESSION: Findings most consistent with diverticular gastrointestinal bleed at the distal descending/sigmoid junction. Additional stable findings as above. Findings given to Dr. Love by Dr. Zapata at 5:10 p.m. on 05/22/2018.
[2018-05-22 17:56] LABS: HEMOGLOBIN 11.4 g/dL (11.0-16.0)
--- NOTE | 2018-05-22 18:08 | CP.PCM.CON ---
<Chong Martinez - Last Filed: 05/22/18 19:46> History of Present Illness - History of Present Illness History of Present Illness: PGY-1 ICU consult note for Dr Kathy Wahl cc: acute GI bleed Patient is a 77 year old female with pmhx of HTN that came to ER today with her daughter for bloody stools. Patient states this happened in this morning when waking up, daughter noticed that her diaper she had bright red watery stools, with well formed clots. Patient has been having diarrhea since last friday, but this is the first time she has experience bloody stools. Patient had two episodes of bloody stools at home, and 3 in the ED. Last episode had increased clots and bloody, unformed stools. Admits to left lower quadrant pain as well as chronic pain in her lower back due to a back surgery for broken vertebrae. 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 Patient does not have oncologist. Patient denies any fever, chills, headaches, dizziness, lightheadedness, chest pain, shortness of breath, n/v, urinary burning or pain or weakness. PMD: Dr Us Pmhx: HTN, thoracic meningioma, Lumbar stenosis/radiculopathy Shx: left knee replacement surgery, back surgery for vertebral repair All: Vancomycin Meds: Aleve PO BID Fmhx: Emphysema (mother), Father ( throat CA) Sochx: denies tobacco use. social drinker (wine), denies illicit drug use Review of Systems - Review of Systems All systems: reviewed and no additional remarkable complaints except Review of Systems: as stated in HPI Past Patient History - Infectious Disease Hx of Infectious Diseases: None - Tetanus Immunizations Tetanus Immunization: Unknown - Past Medical History & Family History Past Medical History?: Yes - Past Social History Smoking Status: Never Smoked - CARDIAC Hx Hypercholesterolemia: Yes Hx Hypertension: Yes Hx Peripheral Edema: Yes - PULMONARY Hx Sleep Apnea: Yes (has c-pap at home not using. being assessed for a different device) - NEUROLOGICAL Hx Neurological Disorder: Yes Hx Dizziness: Yes - HEENT Hx HEENT Problems: Yes Hx Cataracts: Yes (BILAT IOL) - RENAL Hx Chronic Kidney Disease: No - ENDOCRINE/METABOLIC Hx Endocrine Disorders: No - HEMATOLOGICAL/ONCOLOGICAL Hx Blood Disorders: No - INTEGUMENTARY Hx Dermatological Problems: No - MUSCULOSKELETAL/RHEUMATOLOGICAL Hx Arthritis: Yes (knee ; back) Hx Fractures: Yes (lumbar) Hx Osteoporosis: Yes - GASTROINTESTINAL Hx Gastrointestinal Disorders: Yes Hx Gastroesophageal Reflux: Yes - GENITOURINARY/GYNECOLOGICAL Hx Genitourinary Disorders: Yes (URINARY FREQUENCY UTERINE PROLAPSE) - PSYCHIATRIC Hx Anxiety: Yes Hx Depression: Yes Hx Substance Use: No - SURGICAL HISTORY Hx Appendectomy: Yes - ANESTHESIA Hx Anesthesia: Yes Hx Anesthesia Reactions: No Hx Malignant Hyperthermia: No Meds Allergies/Adverse Reactions: Allergies Allergy/AdvReac Type Severity Reaction Status Date / Time vancomycin Allergy ANAPHYLAXIS Verified 05/22/18 12:34 - Medications Medications: Current Medications Pantoprazole Sodium 80 mg/ (Sodium Chloride) 100 mls @ 10 mls/hr IVP .Q10H [facility] Last Admin: 05/22/18 18:03 Dose: 10 mls/hr Physical Exam - Constitutional Appears: Non-toxic, No Acute Distress - Head Exam Head Exam: ATRAUMATIC, NORMAL INSPECTION, NORMOCEPHALIC - Eye Exam Eye Exam: EOMI, Normal appearance - ENT Exam ENT Exam: Mucous Membranes Moist, Normal Exam - Neck Exam Neck exam: Positive for: Normal Inspection - Respiratory Exam Respiratory Exam: Clear to Auscultation Bilateral, NORMAL BREATHING PATTERN. absent: Rales, Rhonchi, Wheezes - Cardiovascular Exam Cardiovascular Exam: REGULAR RHYTHM, +S1, +S2 - GI/Abdominal Exam GI & Abdominal Exam: Normal Bowel Sounds, Soft, Tenderness (left lower quadrant tenderness to superficial palpation). absent: Distended, Guarding - Extremities Exam Extremities exam: Positive for: normal inspection, tenderness (mild tenderness to palpation right lower extremity ). Negative for: pedal edema Additional comments: nonpitting edema, b/l lower extremities - Back Exam Additional comments: midline scar from surgical procedure from lower thoracic to lower lumbar area - Neurological Exam Neurological exam: Alert, Oriented x3 - Psychiatric Exam Psychiatric exam: Normal Affect, Normal Mood - Skin Skin Exam: Dry, Intact, Normal Color, Warm Results - Vital Signs Recent Vital Signs: Last Vital Signs Temp 98.4 F 05/22/18 15:45 Pulse 80 05/22/18 17:10 Resp 20 05/22/18 17:10 BP 175/76 H 05/22/18 17:10 Pulse Ox 99 05/22/18 18:07 - Labs Result Diagrams: 05/22/18 17:53 05/22/18 14:07 Labs: Laboratory Results - last 24 hr 05/22/18 05/22/18 05/22/18 13:51 14:07 14:07 WBC 8.6 D RBC 4.11 Hgb 12.4 Hct 36.8 MCV 89.5 MCH 30.2 MCHC 33.7 RDW 14.4 Plt Count 305 D MPV 8.7 Neut % (Auto) 81.7 H Lymph % (Auto) 9.1 L [place] % (Auto) 8.1 Eos % (Auto) 0.8 Baso % (Auto) 0.3 Neut # (Auto) 7.0 Lymph # (Auto) 0.8 L [place] # (Auto) 0.7 Eos # (Auto) 0.1 Baso # (Auto) 0.0 Neutrophils % (Manual) 87 H Band Neutrophils % 2 Lymphocytes % (Manual) 4 L Monocytes % (Manual) 6 Eosinophils % (Manual) 1 Platelet Estimate Normal RBC Morphology Normal PT 11.1 INR 1.0 APTT 28 Sodium 121 L Potassium 3.4 L Chloride 87 L Carbon Dioxide 23 Anion Gap 15 BUN 20 H Creatinine 0.6 L Est GFR ( Amer) > 60 Est GFR (Non-Af Amer) > 60 Random Glucose 93 Serum Osmolality Calcium 9.2 Total Bilirubin 0.9 AST 38 H ALT 8 L D Alkaline Phosphatase 96 Troponin I < 0.0120 Total Protein 7.1 Albumin 3.9 Globulin 3.1 Albumin/Globulin Ratio 1.3 Lipase 98 Urine Color Urine Clarity Urine pH Ur Specific [place] Urine Protein Urine Glucose (UA) Urine Ketones Urine Blood Urine Nitrate Urine Bilirubin Urine Urobilinogen Ur Leukocyte Esterase Urine WBC (Auto) Urine RBC (Auto) Ur Squamous Epith Cells Urine Osmolality Ur Random Sodium Stool Occult Blood Blood Type Antibody Screen 05/22/18 05/22/18 05/22/18 14:07 14:07 14:40 WBC RBC Hgb Hct MCV MCH MCHC RDW Plt Count MPV Neut % (Auto) Lymph % (Auto) [place] % (Auto) Eos % (Auto) Baso % (Auto) Neut # (Auto) Lymph # (Auto) [place] # (Auto) Eos # (Auto) Baso # (Auto) Neutrophils % (Manual) Band Neutrophils % Lymphocytes % (Manual) Monocytes % (Manual) Eosinophils % (Manual) Platelet Estimate RBC Morphology PT INR APTT Sodium Potassium Chloride Carbon Dioxide Anion Gap BUN Creatinine Est GFR ( Amer) Est GFR (Non-Af Amer) Random Glucose Serum Osmolality Calcium Total Bilirubin AST ALT Alkaline Phosphatase Troponin I Total Protein Albumin Globulin Albumin/Globulin Ratio Lipase Urine Color Yellow Urine Clarity Clear Urine pH 6.0 Ur Specific [place] 1.015 Urine Protein Negative Urine Glucose (UA) Normal Urine Ketones Negative Urine Blood 3+ H Urine Nitrate Negative Urine Bilirubin Negative Urine Urobilinogen Normal Ur Leukocyte Esterase Neg Urine WBC (Auto) 1 Urine RBC (Auto) 557 H Ur Squamous Epith Cells 2 Urine Osmolality Ur Random Sodium Stool Occult Blood Positive H Blood Type A POSITIVE Antibody Screen Negative 05/22/18 05/22/18 05/22/18 15:05 15:38 17:53 WBC RBC Hgb 11.4 Hct 34.9 MCV MCH MCHC RDW Plt Count MPV Neut % (Auto) Lymph % (Auto) [place] % (Auto) Eos % (Auto) Baso % (Auto) Neut # (Auto) Lymph # (Auto) [place] # (Auto) Eos # (Auto) Baso # (Auto) Neutrophils % (Manual) Band Neutrophils % Lymphocytes % (Manual) Monocytes % (Manual) Eosinophils % (Manual) Platelet Estimate RBC Morphology PT INR APTT Sodium Potassium Chloride Carbon Dioxide Anion Gap BUN Creatinine Est GFR ( Amer) Est GFR (Non-Af Amer) Random Glucose Serum Osmolality 258 L Calcium Total Bilirubin AST ALT Alkaline Phosphatase Troponin I Total Protein Albumin Globulin Albumin/Globulin Ratio Lipase Urine Color Urine Clarity Urine pH Ur Specific [place] Urine Protein Urine Glucose (UA) Urine Ketones Urine Blood Urine Nitrate Urine Bilirubin Urine Urobilinogen Ur Leukocyte Esterase Urine WBC (Auto) Urine RBC (Auto) Ur Squamous Epith Cells Urine Osmolality 501 Ur Random Sodium 93 Stool Occult Blood Blood Type Antibody Screen Assessment & Plan - Assessment and Plan (Free Text) Assessment: Patient is 77 year old female with pmhx of HTN and newly diagnosed thoracic meningioma presenting to ED for acute GI bleed x 5 episodes since this am, CT abdomen pelvis shows sigmoid/descending colon diverticula, hemoglobin levels on admission stable, repeat Hg drop from 12.4 to 11.4, fluid rescusitation with LR, will follow H/H Q6Hr and monitor vital signs. Plan: Neuro AAOX3 no acute issues Cardio Hx of HTN hold antihypertensive for now no aspirin or anticoagulants at this time coags within NL monitor bp for hypotension as consequence of active bleed trop x 1 negative Pulm O2 via nasal canula 2L PRN GI active bleed from diverticula in colon Abdomen and pelvis with IV contrast - diverticular GI bleed at distal descending/sigmoid junction H/H on admission 12.4/36.8, repeat H/H 11.4/34.9 stool occult positive monitor hemoglobin for quick drops - CBC Q6H NPO Protonix drip GI- Dr Chapman - fIramu recs Renal BUn/Cr 20/0.6 continue to monitor Low potassium, sodium and chloride LR @100 follow up electrolytes in am U/A 3+ blood, no LE or WBC ID not febrile not elevated WBC PPX DVT: SCDs, chemical ppx c/i due to acute bleed GI: protonix drip Plan discussed with Dr Maryuri Martinez, PGY-1 - Date & Time Date: 05/22/18 Time: 18:30 <Hari Wahl - Last Filed: 05/23/18 15:17> Meds - Medications Medications: Current Medications Bisacodyl (Dulcolax) 10 mg PO ONCE ONE Stop: 05/24/18 17:01 Sodium Chloride (Sodium Chloride 0.9%) 1,000 mls @ 75 mls/hr IV .[id number] [facility] Last Admin: 05/23/18 11:20 Dose: 75 mls/hr Metoclopramide HCl (Reglan) 5 mg IVP Q6H [facility] Last Admin: 05/23/18 09:45 Dose: Not Given Polyethylene Glycol/Electrolytes (Golytely) 4,000 ml PO ONCE ONE Stop: 05/24/18 09:46 Results - Vital Signs Recent Vital Signs: Last Vital Signs Temp 98.2 F 05/22/18 22:00 Pulse 75 05/23/18 08:17 Resp 19 05/23/18 08:17 BP 139/61 05/23/18 08:17 Pulse Ox 100 05/23/18 08:17 - Labs Result Diagrams: 05/23/18 06:07 05/23/18 06:07 Labs: Laboratory Results - last 24 hr 05/22/18 05/22/18 05/22/18 14:07 15:05 15:38 WBC RBC Hgb Hct MCV MCH MCHC RDW Plt Count MPV Neut % (Auto) Lymph % (Auto) [place] % (Auto) Eos % (Auto) Baso % (Auto) Neut # (Auto) Lymph # (Auto) [place] # (Auto) Eos # (Auto) Baso # (Auto) PT INR APTT Fibrinogen Sodium Potassium Chloride Carbon Dioxide Anion Gap BUN Creatinine Est GFR ( Amer) Est GFR (Non-Af Amer) Random Glucose Serum Osmolality 258 L Lactic Acid Calcium Phosphorus Magnesium Total Bilirubin AST ALT Alkaline Phosphatase Total Protein Albumin Globulin Albumin/Globulin Ratio Urine Osmolality 501 Ur Random Sodium 93 Stool Occult Blood Blood Type A POSITIVE Antibody Screen Negative 05/22/18 05/22/18 05/22/18 17:53 22:21 22:21 WBC 6.7 RBC 2.91 L Hgb 11.4 8.5 L D Hct 34.9 25.7 L MCV 88.3 MCH 29.3 MCHC 33.2 RDW 14.1 Plt Count 248 MPV 8.4 Neut % (Auto) 75.6 H Lymph % (Auto) 13.1 L [place] % (Auto) 8.4 Eos % (Auto) 1.7 Baso % (Auto) 1.2 Neut # (Auto) 5.1 Lymph # (Auto) 0.9 L [place] # (Auto) 0.6 Eos # (Auto) 0.1 Baso # (Auto) 0.1 PT 11.5 INR 1.1 APTT 23 D Fibrinogen 198 L Sodium Potassium Chloride Carbon Dioxide Anion Gap BUN Creatinine Est GFR ( Amer) Est GFR (Non-Af Amer) Random Glucose Serum Osmolality Lactic Acid Calcium Phosphorus Magnesium Total Bilirubin AST ALT Alkaline Phosphatase Total Protein Albumin Globulin Albumin/Globulin Ratio Urine Osmolality Ur Random Sodium Stool Occult Blood Blood Type Antibody Screen 05/22/18 05/22/18 05/22/18 22:21 22:21 23:12 WBC RBC Hgb Hct MCV MCH MCHC RDW Plt Count MPV Neut % (Auto) Lymph % (Auto) [place] % (Auto) Eos % (Auto) Baso % (Auto) Neut # (Auto) Lymph # (Auto) [place] # (Auto) Eos # (Auto) Baso # (Auto) PT INR APTT Fibrinogen Sodium 124 L Potassium 3.0 L Chloride 93 L Carbon Dioxide 23 Anion Gap 10 BUN 17 Creatinine 0.6 L Est GFR ( Amer) > 60 Est GFR (Non-Af Amer) > 60 Random Glucose 95 Serum Osmolality Lactic Acid 0.6 L Calcium 8.2 L Phosphorus 2.8 Magnesium 1.1 L Total Bilirubin 0.9 AST 18 ALT 21 Alkaline Phosphatase 67 Total Protein 5.3 L Albumin 2.8 L D Globulin 2.4 Albumin/Globulin Ratio 1.2 Urine Osmolality Ur Random Sodium Stool Occult Blood Positive H Blood Type Antibody Screen 05/23/18 05/23/18 06:07 06:07 WBC 8.5 RBC 3.42 L Hgb 10.3 L Hct 30.6 L MCV 89.4 MCH 30.0 MCHC 33.6 RDW 13.8 Plt Count 205 MPV 9.2 Neut % (Auto) Lymph % (Auto) [place] % (Auto) Eos % (Auto) Baso % (Auto) Neut # (Auto) Lymph # (Auto) [place] # (Auto) Eos # (Auto) Baso # (Auto) PT INR APTT Fibrinogen Sodium 125 L Potassium 3.5 L Chloride 94 L Carbon Dioxide 25 Anion Gap 8 L BUN 18 H Creatinine 0.5 L Est GFR ( Amer) > 60 Est GFR (Non-Af Amer) > 60 Random Glucose 89 Serum Osmolality Lactic Acid Calcium 8.7 Phosphorus 3.3 Magnesium 1.3 L Total Bilirubin AST ALT Alkaline Phosphatase Total Protein Albumin Globulin Albumin/Globulin Ratio Urine Osmolality Ur Random Sodium Stool Occult Blood Blood Type Antibody Screen Attending/Attestation - Attestation I have personally seen and examined this patient.: Yes I have fully participated in the care of the patient.: Yes I have reviewed all pertinent clinical information: Yes Notes (Text): I have seen and examined the patient. Medical records, lab studies, and imaging were reviewed by me and a management plan was formulated on multidisciplinary rounds with resident Dr. Martinez. I agree with their documented assessment and plan. Patient p/w suspected lower GI bleed. Admitted to ICU for monitoring of h/h and blood pressure. EGD/Colonoscopy to be done by GI tomorrow. Critical Care Time 35 minutes. Multi-disciplinary rounds were performed with house staff, nursing, speech therapy, respiratory therapy, pharmacy and nutrition with integrated input from the primary team/attending and other consulting services. The documented time is cumulative and includes review of patient data/exams/labs/chart review and examination of the patient on rounds and throughout the day; time is exclusive of any procedures or teaching time.
[2018-05-22] MEDS: Pantoprazole 80 MG in Sodium Chloride 0.9% 100 ML IVP SCH (19:00)
[2018-05-22] MEDS ORDERED: Dextrose 5%/0.9% NS 1,000 ML IV SCH (19:00)
[2018-05-22] MEDS ORDERED: Desmopressin 20 MCG in Sodium Chloride 0.9% 50 ML IV ONE (19:04)
[2018-05-22] MEDS: Lactated Ringer's 1,000 ML IV SCH (20:00)
--- NOTE | 2018-05-22 22:10 | CP.PCM.PN ---
Subjective - Date & Time of Evaluation Date of Evaluation: 05/22/18 Time of Evaluation: 22:09 - Subjective Subjective: Patient suddenly become unconsciousness, started having sudden onset of bleeding rectally again. Patient nearly passed out. Bradycardia and hypotension noted. Spoke to the patient's daughter. Immediate consent was obtained for blood transfusion as well as TLC insertion. 2 units of blood as well as 2 units of FFP ordered immediately. Chest x-ray ordered. Laparotomy. Patient is in critical condition. Surgical, and GI consultation again called. Prognosis guarded. Condition critical. Objective - Vital Signs/Intake and Output Vital Signs (last 24 hours): Temp Pulse Resp BP Pulse Ox 98.4 F 84 16 163/83 H 99 05/22/18 15:45 05/22/18 18:22 05/22/18 18:22 05/22/18 18:22 05/22/18 19:53 - Medications Medications: Current Medications Pantoprazole Sodium 80 mg/ (Sodium Chloride) 100 mls @ 10 mls/hr IVP .Q10H [facility] Last Admin: 05/22/18 18:03 Dose: 10 mls/hr Dextrose/Sodium Chloride (Dextrose 5%/0.9% Ns 1000 Ml) 1,000 mls @ 100 mls/hr IV .Q10H [facility] Lactated Ringer's (Lactated Ringer's) 1,000 mls @ 100 mls/hr IV .Q10H [facility] Stop: 05/23/18 19:30 Sodium Chloride (Sodium Chloride 0.9%) 500 mls @ 1,000 mls/hr IV .Q30M ONE Stop: 05/22/18 22:37 - Labs Labs: 05/22/18 17:53 05/22/18 14:07 PT 11.1 SECONDS (9.7-12.2) 05/22/18 14:07 INR 1.0 05/22/18 14:07 APTT 28 SECONDS (21-34) 05/22/18 14:07
--- NOTE | 2018-05-22 22:11 | PCM.PROC ---
Procedures Attestation:: I certify that I have explained the specified Operation(s) or Procedure(s), risks, benefits and reasonable alternatives to the Patient and/or other person responsible. The opportunity was given to ask questions and all questions answered - Central Line Placement Right Internal Jugular Aseptic technique was employed throughout the procedure: Chloraprep Antiseptic: 30 second prep for IJ or SC sites CVP Time Out Performed: Yes Pt. Placed on Pulse Ox Monitor: Yes Central Line Prep: Chlorhexidine-Alcohol Combination Local Anesthesia Used: Lidocaine 1% Amount of Anesthesia Used (mls): 7 Ultrasound Used for Placement: Yes Central Line Lumen Inserted: triple Central Line Length: 20 cm Post Procedure: Sutured in Place, Good Blood Return, All Ports Aspirated, Flushed, Capped, Sterile Dressing Applied Secured by: Suture Post procedure dressing: Clear vapor permeable Post Procedure X-Ray: Yes Patient Tolerated Procedure: Well Immediate Complications: None
[2018-05-22 22:24] LABS: BASO # 0.1 K/uL (0.0-0.2); BASO % 1.2 % (0.0-2.0); EOS # 0.1 K/uL (0.0-0.7); EOS % 1.7 % (0.0-4.0); LYMPH # 0.9 K/uL (1.0-4.3); LYMPH % 13.1 % (20.0-40.0); MEAN CELL VOLUME 88.3 fL (81.0-99.0); MEAN CORPUSCULAR HEMOGLOBIN 29.3 pg (27.0-31.0); MEAN CORPUSCULAR HGB CONC 33.2 g/dL (33.0-37.0); MEAN PLATELET VOLUME 8.4 fL (7.2-11.7); MONO # 0.6 K/uL (0.0-0.8); MONO % 8.4 % (0.0-10.0); NEUT # 5.1 K/uL (1.8-7.0); NEUT % 75.6 % (50.0-75.0); RBC 2.91 Mil/uL (3.80-5.20); RED CELL DISTRIBUTION WIDTH 14.1 % (11.5-14.5); WHITE BLOOD COUNT 6.7 K/uL (4.8-10.8)
[2018-05-22 22:36] LABS: HEMOGLOBIN 8.5 g/dL (11.0-16.0)
--- NOTE | 2018-05-22 22:40 | CP.PCM.CON ---
<Neil Anderson - Last Filed: 05/22/18 22:46> History of Present Illness - History of Present Illness History of Present Illness: Surgery Consult Note for Dr. Medrano Consult: GI Bleed 77 year old female, past medical history of Hypertension, Thoracic meningioma, and Diverticulosis, presents with rectal bleeding that started this morning. Patient's daughter at bedside who provided history. States that patient was in the hospital until last Friday for issues regarding her back/spine. Upon discharge she had multiple episodes of diarrhea throughout the week. This morning patient noted a large amount of blood and clots during her bowel movement. She has never had episodes like this before. Since this morning, daughter states that patient has had 12-13 bloody bowel movements. She admits to pain in the left lower quadrant. Denies fever, chills, nausea, vomiting, shortness of breath, chest pain, palpitations, headaches, dizziness, or urinary symptoms. In the ICU, patient's most recent bloody bowel movement accompanied by loss of consciousness and hypotension that has since resolved. Patient to receive 2uPRBCs and 2uFFP. PMH: See above PSH: Spinal surgery, Left knee replacement FH: Noncontributory SH: Social drinker, denies tobacco or drugs ALL: Vancomycin Meds: See MAR Review of Systems - Constitutional Constitutional: Weakness. absent: Chills, Fever - EENT Eyes: absent: Blurred Vision, Change in Vision Nose/Mouth/Throat: absent: Nasal Congestion, Nasal Discharge - Cardiovascular Cardiovascular: absent: Chest Pain, Dyspnea - Respiratory Respiratory: absent: Cough, Dyspnea - Gastrointestinal Gastrointestinal: Abdominal Pain, Diarrhea, Fecal Incontinence, Hematochezia, Melena. absent: Nausea, Vomiting - Genitourinary Genitourinary: absent: Difficulty Urinating, Dysuria - Musculoskeletal Musculoskeletal: Back Pain. absent: Neck Pain - Integumentary Integumentary: absent: Bleeding Lesions, Changing Lesions - Neurological Neurological: absent: Confusion, Dizziness - Psychiatric Psychiatric: absent: Anxiety, Depression Past Patient History - Infectious Disease Hx of Infectious Diseases: None - Tetanus Immunizations Tetanus Immunization: Unknown - Past Medical History & Family History Past Medical History?: Yes - Past Social History Smoking Status: Never Smoked - CARDIAC Hx Hypercholesterolemia: Yes Hx Hypertension: Yes Hx Peripheral Edema: Yes - PULMONARY Hx Sleep Apnea: Yes (has c-pap at home not using. being assessed for a different device) - NEUROLOGICAL Hx Neurological Disorder: Yes Hx Dizziness: Yes - HEENT Hx HEENT Problems: Yes Hx Cataracts: Yes (BILAT IOL) - RENAL Hx Chronic Kidney Disease: No - ENDOCRINE/METABOLIC Hx Endocrine Disorders: No - HEMATOLOGICAL/ONCOLOGICAL Hx Blood Disorders: No - INTEGUMENTARY Hx Dermatological Problems: No - MUSCULOSKELETAL/RHEUMATOLOGICAL Hx Arthritis: Yes (knee ; back) Hx Fractures: Yes (lumbar) Hx Osteoporosis: Yes - GASTROINTESTINAL Hx Gastrointestinal Disorders: Yes Hx Gastroesophageal Reflux: Yes - GENITOURINARY/GYNECOLOGICAL Hx Genitourinary Disorders: Yes (URINARY FREQUENCY UTERINE PROLAPSE) - PSYCHIATRIC Hx Anxiety: Yes Hx Depression: Yes Hx Substance Use: No - SURGICAL HISTORY Hx Appendectomy: Yes - ANESTHESIA Hx Anesthesia: Yes Hx Anesthesia Reactions: No Hx Malignant Hyperthermia: No Meds Allergies/Adverse Reactions: Allergies Allergy/AdvReac Type Severity Reaction Status Date / Time vancomycin Allergy ANAPHYLAXIS Verified 05/22/18 12:34 - Medications Medications: Current Medications Pantoprazole Sodium 80 mg/ (Sodium Chloride) 100 mls @ 10 mls/hr IVP .Q10H LACI Last Admin: 05/22/18 18:03 Dose: 10 mls/hr Dextrose/Sodium Chloride (Dextrose 5%/0.9% Ns 1000 Ml) 1,000 mls @ 100 mls/hr IV .Q10H LACI Lactated Ringer's (Lactated Ringer's) 1,000 mls @ 100 mls/hr IV .Q10H LACI Stop: 05/23/18 19:30 Sodium Chloride (Sodium Chloride 0.9%) 500 mls @ 1,000 mls/hr IV .Q30M ONE Stop: 05/22/18 22:37 Physical Exam - Constitutional Appears: Non-toxic, No Acute Distress - Head Exam Head Exam: ATRAUMATIC, NORMAL INSPECTION, NORMOCEPHALIC - Eye Exam Eye Exam: EOMI - ENT Exam ENT Exam: Mucous Membranes Dry - Respiratory Exam Respiratory Exam: NORMAL BREATHING PATTERN. absent: Respiratory Distress - Cardiovascular Exam Cardiovascular Exam: REGULAR RHYTHM. absent: Tachycardia - GI/Abdominal Exam GI & Abdominal Exam: Normal Bowel Sounds, Soft. absent: Guarding, Rebound, Tenderness - Rectal Exam Rectal Exam: Bloody Stool, Hemorrhoids - Neurological Exam Neurological exam: Alert, Oriented x3 - Psychiatric Exam Psychiatric exam: Normal Affect, Normal Mood - Skin Skin Exam: Dry, Intact, Normal Color, Warm Results - Vital Signs Recent Vital Signs: Last Vital Signs Temp 98.4 F 05/22/18 15:45 Pulse 84 05/22/18 18:22 Resp 16 05/22/18 18:22 BP 163/83 H 05/22/18 18:22 Pulse Ox 99 05/22/18 19:53 - Labs Result Diagrams: 05/22/18 22:21 05/22/18 22:21 Labs: Laboratory Results - last 24 hr 05/22/18 05/22/18 05/22/18 13:51 14:07 14:07 WBC 8.6 D RBC 4.11 Hgb 12.4 Hct 36.8 MCV 89.5 MCH 30.2 MCHC 33.7 RDW 14.4 Plt Count 305 D MPV 8.7 Neut % (Auto) 81.7 H Lymph % (Auto) 9.1 L [place] % (Auto) 8.1 Eos % (Auto) 0.8 Baso % (Auto) 0.3 Neut # (Auto) 7.0 Lymph # (Auto) 0.8 L [place] # (Auto) 0.7 Eos # (Auto) 0.1 Baso # (Auto) 0.0 Neutrophils % (Manual) 87 H Band Neutrophils % 2 Lymphocytes % (Manual) 4 L Monocytes % (Manual) 6 Eosinophils % (Manual) 1 Platelet Estimate Normal RBC Morphology Normal PT 11.1 INR 1.0 APTT 28 Sodium 121 L Potassium 3.4 L Chloride 87 L Carbon Dioxide 23 Anion Gap 15 BUN 20 H Creatinine 0.6 L Est GFR ( Amer) > 60 Est GFR (Non-Af Amer) > 60 Random Glucose 93 Serum Osmolality Lactic Acid Calcium 9.2 Total Bilirubin 0.9 AST 38 H ALT 8 L D Alkaline Phosphatase 96 Troponin I < 0.0120 Total Protein 7.1 Albumin 3.9 Globulin 3.1 Albumin/Globulin Ratio 1.3 Lipase 98 Urine Color Urine Clarity Urine pH Ur Specific [place] Urine Protein Urine Glucose (UA) Urine Ketones Urine Blood Urine Nitrate Urine Bilirubin Urine Urobilinogen Ur Leukocyte Esterase Urine WBC (Auto) Urine RBC (Auto) Ur Squamous Epith Cells Urine Osmolality Ur Random Sodium Stool Occult Blood Blood Type Antibody Screen 05/22/18 05/22/18 05/22/18 14:07 14:07 14:40 WBC RBC Hgb Hct MCV MCH MCHC RDW Plt Count MPV Neut % (Auto) Lymph % (Auto) [place] % (Auto) Eos % (Auto) Baso % (Auto) Neut # (Auto) Lymph # (Auto) [place] # (Auto) Eos # (Auto) Baso # (Auto) Neutrophils % (Manual) Band Neutrophils % Lymphocytes % (Manual) Monocytes % (Manual) Eosinophils % (Manual) Platelet Estimate RBC Morphology PT INR APTT Sodium Potassium Chloride Carbon Dioxide Anion Gap BUN Creatinine Est GFR ( Amer) Est GFR (Non-Af Amer) Random Glucose Serum Osmolality Lactic Acid Calcium Total Bilirubin AST ALT Alkaline Phosphatase Troponin I Total Protein Albumin Globulin Albumin/Globulin Ratio Lipase Urine Color Yellow Urine Clarity Clear Urine pH 6.0 Ur Specific [place] 1.015 Urine Protein Negative Urine Glucose (UA) Normal Urine Ketones Negative Urine Blood 3+ H Urine Nitrate Negative Urine Bilirubin Negative Urine Urobilinogen Normal Ur Leukocyte Esterase Neg Urine WBC (Auto) 1 Urine RBC (Auto) 557 H Ur Squamous Epith Cells 2 Urine Osmolality Ur Random Sodium Stool Occult Blood Positive H Blood Type A POSITIVE Antibody Screen Negative 05/22/18 05/22/18 05/22/18 15:05 15:38 17:53 WBC RBC Hgb 11.4 Hct 34.9 MCV MCH MCHC RDW Plt Count MPV Neut % (Auto) Lymph % (Auto) [place] % (Auto) Eos % (Auto) Baso % (Auto) Neut # (Auto) Lymph # (Auto) [place] # (Auto) Eos # (Auto) Baso # (Auto) Neutrophils % (Manual) Band Neutrophils % Lymphocytes % (Manual) Monocytes % (Manual) Eosinophils % (Manual) Platelet Estimate RBC Morphology PT INR APTT Sodium Potassium Chloride Carbon Dioxide Anion Gap BUN Creatinine Est GFR ( Amer) Est GFR (Non-Af Amer) Random Glucose Serum Osmolality 258 L Lactic Acid Calcium Total Bilirubin AST ALT Alkaline Phosphatase Troponin I Total Protein Albumin Globulin Albumin/Globulin Ratio Lipase Urine Color Urine Clarity Urine pH Ur Specific [place] Urine Protein Urine Glucose (UA) Urine Ketones Urine Blood Urine Nitrate Urine Bilirubin Urine Urobilinogen Ur Leukocyte Esterase Urine WBC (Auto) Urine RBC (Auto) Ur Squamous Epith Cells Urine Osmolality 501 Ur Random Sodium 93 Stool Occult Blood Blood Type Antibody Screen 05/22/18 05/22/18 22:21 22:21 WBC 6.7 RBC 2.91 L Hgb 8.5 L D Hct 25.7 L MCV 88.3 MCH 29.3 MCHC 33.2 RDW 14.1 Plt Count 248 MPV 8.4 Neut % (Auto) 75.6 H Lymph % (Auto) 13.1 L [place] % (Auto) 8.4 Eos % (Auto) 1.7 Baso % (Auto) 1.2 Neut # (Auto) 5.1 Lymph # (Auto) 0.9 L [place] # (Auto) 0.6 Eos # (Auto) 0.1 Baso # (Auto) 0.1 Neutrophils % (Manual) Band Neutrophils % Lymphocytes % (Manual) Monocytes % (Manual) Eosinophils % (Manual) Platelet Estimate RBC Morphology PT INR APTT Sodium Potassium Chloride Carbon Dioxide Anion Gap BUN Creatinine Est GFR ( Amer) Est GFR (Non-Af Amer) Random Glucose Serum Osmolality Lactic Acid 0.6 L Calcium Total Bilirubin AST ALT Alkaline Phosphatase Troponin I Total Protein Albumin Globulin Albumin/Globulin Ratio Lipase Urine Color Urine Clarity Urine pH Ur Specific [place] Urine Protein Urine Glucose (UA) Urine Ketones Urine Blood Urine Nitrate Urine Bilirubin Urine Urobilinogen Ur Leukocyte Esterase Urine WBC (Auto) Urine RBC (Auto) Ur Squamous Epith Cells Urine Osmolality Ur Random Sodium Stool Occult Blood Blood Type Antibody Screen Assessment & Plan - Assessment and Plan (Free Text) Assessment: 77F w/ upper vs lower GI bleed Plan: Monitor H/H Transfuse as needed - plan to receive 2uPRBCs and 2uFFP IVF Monitor hemodynamic stability F/u GI recs - plan for EGD in AM F/u tagged RBC scan to find potential source of bleeding AM labs D/w Dr. Marcela Anderson PGY1 <Hari Wahl - Last Filed: 05/23/18 15:15> Meds - Medications Medications: Current Medications Bisacodyl (Dulcolax) 10 mg PO ONCE ONE Stop: 05/24/18 17:01 Sodium Chloride (Sodium Chloride 0.9%) 1,000 mls @ 75 mls/hr IV .[id number] [facility] Last Admin: 05/23/18 11:20 Dose: 75 mls/hr Metoclopramide HCl (Reglan) 5 mg IVP Q6H [facility] Last Admin: 05/23/18 09:45 Dose: Not Given Polyethylene Glycol/Electrolytes (Golytely) 4,000 ml PO ONCE ONE Stop: 05/24/18 09:46 Results - Vital Signs Recent Vital Signs: Last Vital Signs Temp 98.2 F 05/22/18 22:00 Pulse 75 05/23/18 08:17 Resp 19 05/23/18 08:17 BP 139/61 05/23/18 08:17 Pulse Ox 100 05/23/18 08:17 - Labs Result Diagrams: 05/23/18 06:07 05/23/18 06:07 Labs: Laboratory Results - last 24 hr 05/22/18 05/22/18 05/22/18 14:07 15:05 15:38 WBC RBC Hgb Hct MCV MCH MCHC RDW Plt Count MPV Neut % (Auto) Lymph % (Auto) [place] % (Auto) Eos % (Auto) Baso % (Auto) Neut # (Auto) Lymph # (Auto) [place] # (Auto) Eos # (Auto) Baso # (Auto) PT INR APTT Fibrinogen Sodium Potassium Chloride Carbon Dioxide Anion Gap BUN Creatinine Est GFR ( Amer) Est GFR (Non-Af Amer) Random Glucose Serum Osmolality 258 L Lactic Acid Calcium Phosphorus Magnesium Total Bilirubin AST ALT Alkaline Phosphatase Total Protein Albumin Globulin Albumin/Globulin Ratio Urine Osmolality 501 Ur Random Sodium 93 Stool Occult Blood Blood Type A POSITIVE Antibody Screen Negative 05/22/18 05/22/18 05/22/18 17:53 22:21 22:21 WBC 6.7 RBC 2.91 L Hgb 11.4 8.5 L D Hct 34.9 25.7 L MCV 88.3 MCH 29.3 MCHC 33.2 RDW 14.1 Plt Count 248 MPV 8.4 Neut % (Auto) 75.6 H Lymph % (Auto) 13.1 L [place] % (Auto) 8.4 Eos % (Auto) 1.7 Baso % (Auto) 1.2 Neut # (Auto) 5.1 Lymph # (Auto) 0.9 L [place] # (Auto) 0.6 Eos # (Auto) 0.1 Baso # (Auto) 0.1 PT 11.5 INR 1.1 APTT 23 D Fibrinogen 198 L Sodium Potassium Chloride Carbon Dioxide Anion Gap BUN Creatinine Est GFR ( Amer) Est GFR (Non-Af Amer) Random Glucose Serum Osmolality Lactic Acid Calcium Phosphorus Magnesium Total Bilirubin AST ALT Alkaline Phosphatase Total Protein Albumin Globulin Albumin/Globulin Ratio Urine Osmolality Ur Random Sodium Stool Occult Blood Blood Type Antibody Screen 05/22/18 05/22/18 05/22/18 22:21 22:21 23:12 WBC RBC Hgb Hct MCV MCH MCHC RDW Plt Count MPV Neut % (Auto) Lymph % (Auto) [place] % (Auto) Eos % (Auto) Baso % (Auto) Neut # (Auto) Lymph # (Auto) [place] # (Auto) Eos # (Auto) Baso # (Auto) PT INR APTT Fibrinogen Sodium 124 L Potassium 3.0 L Chloride 93 L Carbon Dioxide 23 Anion Gap 10 BUN 17 Creatinine 0.6 L Est GFR ( Amer) > 60 Est GFR (Non-Af Amer) > 60 Random Glucose 95 Serum Osmolality Lactic Acid 0.6 L Calcium 8.2 L Phosphorus 2.8 Magnesium 1.1 L Total Bilirubin 0.9 AST 18 ALT 21 Alkaline Phosphatase 67 Total Protein 5.3 L Albumin 2.8 L D Globulin 2.4 Albumin/Globulin Ratio 1.2 Urine Osmolality Ur Random Sodium Stool Occult Blood Positive H Blood Type Antibody Screen 05/23/18 05/23/18 06:07 06:07 WBC 8.5 RBC 3.42 L Hgb 10.3 L Hct 30.6 L MCV 89.4 MCH 30.0 MCHC 33.6 RDW 13.8 Plt Count 205 MPV 9.2 Neut % (Auto) Lymph % (Auto) [place] % (Auto) Eos % (Auto) Baso % (Auto) Neut # (Auto) Lymph # (Auto) [place] # (Auto) Eos # (Auto) Baso # (Auto) PT INR APTT Fibrinogen Sodium 125 L Potassium 3.5 L Chloride 94 L Carbon Dioxide 25 Anion Gap 8 L BUN 18 H Creatinine 0.5 L Est GFR ( Amer) > 60 Est GFR (Non-Af Amer) > 60 Random Glucose 89 Serum Osmolality Lactic Acid Calcium 8.7 Phosphorus 3.3 Magnesium 1.3 L Total Bilirubin AST ALT Alkaline Phosphatase Total Protein Albumin Globulin Albumin/Globulin Ratio Urine Osmolality Ur Random Sodium Stool Occult Blood Blood Type Antibody Screen Attending/Attestation - Attestation I have personally seen and examined this patient.: Yes I have fully participated in the care of the patient.: Yes I have reviewed all pertinent clinical information: Yes Notes (Text): I have seen and examined the patient. Medical records, lab studies, and imaging were reviewed by me and a management plan was formulated on multidisciplinary rounds with resident Dr. Martinez. I agree with their documented assessment and plan. Patient p/w suspected lower GI bleed. Admitted to ICU for monitoring of h/h and blood pressure. EGD/Colonoscopy to be done by GI tomorrow. Critical Care Time 35 minutes. Multi-disciplinary rounds were performed with house staff, nursing, speech therapy, respiratory therapy, pharmacy and nutrition with integrated input from the primary team/attending and other consulting services. The documented time is cumulative and includes review of patient data/exams/labs/chart review and examination of the patient on rounds and throughout the day; time is exclusive of any procedures or teaching time.
[2018-05-22 22:42] LABS: ALB/GLOB RATIO 1.2 (1.0-2.1); ALBUMIN 2.8 g/dL (3.5-5.0); ALT/SGPT 21 U/L (9-52); AST/SGOT 18 U/L (14-36); BLOOD UREA NITROGEN 17 mg/dL (7-17); CALCIUM 8.2 mg/dl (8.6-10.4); GFR NON-AFRICAN AMERICAN > 60
[2018-05-22 22:46] LABS: INR 1.1; PROTHROMBIN TIME 11.5 SECONDS (9.7-12.2)
--- NOTE | 2018-05-22 23:07 | CP.PCM.HP ---
Present on Admission - Present on Admission Any Indicators Present on Admission: No Past Patient History - Infectious Disease Hx of Infectious Diseases: None - Tetanus Immunizations Tetanus Immunization: Unknown - Past Medical History & Family History Past Medical History?: Yes - Past Social History Smoking Status: Never Smoked - CARDIAC Hx Hypercholesterolemia: Yes Hx Hypertension: Yes Hx Peripheral Edema: Yes - PULMONARY Hx Sleep Apnea: Yes (has c-pap at home not using. being assessed for a different device) - NEUROLOGICAL Hx Neurological Disorder: Yes Hx Dizziness: Yes - HEENT Hx HEENT Problems: Yes Hx Cataracts: Yes (BILAT IOL) - RENAL Hx Chronic Kidney Disease: No - ENDOCRINE/METABOLIC Hx Endocrine Disorders: No - HEMATOLOGICAL/ONCOLOGICAL Hx Blood Disorders: No - INTEGUMENTARY Hx Dermatological Problems: No - MUSCULOSKELETAL/RHEUMATOLOGICAL Hx Arthritis: Yes (knee ; back) Hx Fractures: Yes (lumbar) Hx Osteoporosis: Yes - GASTROINTESTINAL Hx Gastrointestinal Disorders: Yes Hx Gastroesophageal Reflux: Yes - GENITOURINARY/GYNECOLOGICAL Hx Genitourinary Disorders: Yes (URINARY FREQUENCY UTERINE PROLAPSE) - PSYCHIATRIC Hx Anxiety: Yes Hx Depression: Yes Hx Substance Use: No - SURGICAL HISTORY Hx Appendectomy: Yes - ANESTHESIA Hx Anesthesia: Yes Hx Anesthesia Reactions: No Hx Malignant Hyperthermia: No Meds Allergies/Adverse Reactions: Allergies Allergy/AdvReac Type Severity Reaction Status Date / Time vancomycin Allergy ANAPHYLAXIS Verified 05/22/18 12:34 Results - Vital Signs Recent Vital Signs: Last Vital Signs Temp 98.4 F 05/22/18 15:45 Pulse 84 05/22/18 18:22 Resp 16 05/22/18 18:22 BP 163/83 H 05/22/18 18:22 Pulse Ox 99 05/22/18 19:53 - Labs Result Diagrams: 05/22/18 22:21 05/22/18 22:21 Labs: Laboratory Results - last 24 hr 05/22/18 05/22/18 05/22/18 13:51 14:07 14:07 WBC 8.6 D RBC 4.11 Hgb 12.4 Hct 36.8 MCV 89.5 MCH 30.2 MCHC 33.7 RDW 14.4 Plt Count 305 D MPV 8.7 Neut % (Auto) 81.7 H Lymph % (Auto) 9.1 L [place] % (Auto) 8.1 Eos % (Auto) 0.8 Baso % (Auto) 0.3 Neut # (Auto) 7.0 Lymph # (Auto) 0.8 L [place] # (Auto) 0.7 Eos # (Auto) 0.1 Baso # (Auto) 0.0 Neutrophils % (Manual) 87 H Band Neutrophils % 2 Lymphocytes % (Manual) 4 L Monocytes % (Manual) 6 Eosinophils % (Manual) 1 Platelet Estimate Normal RBC Morphology Normal PT 11.1 INR 1.0 APTT 28 Fibrinogen Sodium 121 L Potassium 3.4 L Chloride 87 L Carbon Dioxide 23 Anion Gap 15 BUN 20 H Creatinine 0.6 L Est GFR ( Amer) > 60 Est GFR (Non-Af Amer) > 60 Random Glucose 93 Serum Osmolality Lactic Acid Calcium 9.2 Phosphorus Magnesium Total Bilirubin 0.9 AST 38 H ALT 8 L D Alkaline Phosphatase 96 Troponin I < 0.0120 Total Protein 7.1 Albumin 3.9 Globulin 3.1 Albumin/Globulin Ratio 1.3 Lipase 98 Urine Color Urine Clarity Urine pH Ur Specific [place] Urine Protein Urine Glucose (UA) Urine Ketones Urine Blood Urine Nitrate Urine Bilirubin Urine Urobilinogen Ur Leukocyte Esterase Urine WBC (Auto) Urine RBC (Auto) Ur Squamous Epith Cells Urine Osmolality Ur Random Sodium Stool Occult Blood Blood Type Antibody Screen 05/22/18 05/22/18 05/22/18 14:07 14:07 14:40 WBC RBC Hgb Hct MCV MCH MCHC RDW Plt Count MPV Neut % (Auto) Lymph % (Auto) [place] % (Auto) Eos % (Auto) Baso % (Auto) Neut # (Auto) Lymph # (Auto) [place] # (Auto) Eos # (Auto) Baso # (Auto) Neutrophils % (Manual) Band Neutrophils % Lymphocytes % (Manual) Monocytes % (Manual) Eosinophils % (Manual) Platelet Estimate RBC Morphology PT INR APTT Fibrinogen Sodium Potassium Chloride Carbon Dioxide Anion Gap BUN Creatinine Est GFR ( Amer) Est GFR (Non-Af Amer) Random Glucose Serum Osmolality Lactic Acid Calcium Phosphorus Magnesium Total Bilirubin AST ALT Alkaline Phosphatase Troponin I Total Protein Albumin Globulin Albumin/Globulin Ratio Lipase Urine Color Yellow Urine Clarity Clear Urine pH 6.0 Ur Specific [place] 1.015 Urine Protein Negative Urine Glucose (UA) Normal Urine Ketones Negative Urine Blood 3+ H Urine Nitrate Negative Urine Bilirubin Negative Urine Urobilinogen Normal Ur Leukocyte Esterase Neg Urine WBC (Auto) 1 Urine RBC (Auto) 557 H Ur Squamous Epith Cells 2 Urine Osmolality Ur Random Sodium Stool Occult Blood Positive H Blood Type A POSITIVE Antibody Screen Negative 05/22/18 05/22/18 05/22/18 15:05 15:38 17:53 WBC RBC Hgb 11.4 Hct 34.9 MCV MCH MCHC RDW Plt Count MPV Neut % (Auto) Lymph % (Auto) [place] % (Auto) Eos % (Auto) Baso % (Auto) Neut # (Auto) Lymph # (Auto) [place] # (Auto) Eos # (Auto) Baso # (Auto) Neutrophils % (Manual) Band Neutrophils % Lymphocytes % (Manual) Monocytes % (Manual) Eosinophils % (Manual) Platelet Estimate RBC Morphology PT INR APTT Fibrinogen Sodium Potassium Chloride Carbon Dioxide Anion Gap BUN Creatinine Est GFR ( Amer) Est GFR (Non-Af Amer) Random Glucose Serum Osmolality 258 L Lactic Acid Calcium Phosphorus Magnesium Total Bilirubin AST ALT Alkaline Phosphatase Troponin I Total Protein Albumin Globulin Albumin/Globulin Ratio Lipase Urine Color Urine Clarity Urine pH Ur Specific [place] Urine Protein Urine Glucose (UA) Urine Ketones Urine Blood Urine Nitrate Urine Bilirubin Urine Urobilinogen Ur Leukocyte Esterase Urine WBC (Auto) Urine RBC (Auto) Ur Squamous Epith Cells Urine Osmolality 501 Ur Random Sodium 93 Stool Occult Blood Blood Type Antibody Screen 05/22/18 05/22/18 05/22/18 22:21 22:21 22:21 WBC 6.7 RBC 2.91 L Hgb 8.5 L D Hct 25.7 L MCV 88.3 MCH 29.3 MCHC 33.2 RDW 14.1 Plt Count 248 MPV 8.4 Neut % (Auto) 75.6 H Lymph % (Auto) 13.1 L [place] % (Auto) 8.4 Eos % (Auto) 1.7 Baso % (Auto) 1.2 Neut # (Auto) 5.1 Lymph # (Auto) 0.9 L [place] # (Auto) 0.6 Eos # (Auto) 0.1 Baso # (Auto) 0.1 Neutrophils % (Manual) Band Neutrophils % Lymphocytes % (Manual) Monocytes % (Manual) Eosinophils % (Manual) Platelet Estimate RBC Morphology PT 11.5 INR 1.1 APTT 23 D Fibrinogen 198 L Sodium 124 L Potassium 3.0 L Chloride 93 L Carbon Dioxide 23 Anion Gap 10 BUN 17 Creatinine 0.6 L Est GFR ( Amer) > 60 Est GFR (Non-Af Amer) > 60 Random Glucose 95 Serum Osmolality Lactic Acid Calcium 8.2 L Phosphorus 2.8 Magnesium 1.1 L Total Bilirubin 0.9 AST 18 ALT 21 Alkaline Phosphatase 67 Troponin I Total Protein 5.3 L Albumin 2.8 L D Globulin 2.4 Albumin/Globulin Ratio 1.2 Lipase Urine Color Urine Clarity Urine pH Ur Specific [place] Urine Protein Urine Glucose (UA) Urine Ketones Urine Blood Urine Nitrate Urine Bilirubin Urine Urobilinogen Ur Leukocyte Esterase Urine WBC (Auto) Urine RBC (Auto) Ur Squamous Epith Cells Urine Osmolality Ur Random Sodium Stool Occult Blood Blood Type Antibody Screen 05/22/18 22:21 WBC RBC Hgb Hct MCV MCH MCHC RDW Plt Count MPV Neut % (Auto) Lymph % (Auto) [place] % (Auto) Eos % (Auto) Baso % (Auto) Neut # (Auto) Lymph # (Auto) [place] # (Auto) Eos # (Auto) Baso # (Auto) Neutrophils % (Manual) Band Neutrophils % Lymphocytes % (Manual) Monocytes % (Manual) Eosinophils % (Manual) Platelet Estimate RBC Morphology PT INR APTT Fibrinogen Sodium Potassium Chloride Carbon Dioxide Anion Gap BUN Creatinine Est GFR ( Amer) Est GFR (Non-Af Amer) Random Glucose Serum Osmolality Lactic Acid 0.6 L Calcium Phosphorus Magnesium Total Bilirubin AST ALT Alkaline Phosphatase Troponin I Total Protein Albumin Globulin Albumin/Globulin Ratio Lipase Urine Color Urine Clarity Urine pH Ur Specific [place] Urine Protein Urine Glucose (UA) Urine Ketones Urine Blood Urine Nitrate Urine Bilirubin Urine Urobilinogen Ur Leukocyte Esterase Urine WBC (Auto) Urine RBC (Auto) Ur Squamous Epith Cells Urine Osmolality Ur Random Sodium Stool Occult Blood Blood Type Antibody Screen
[2018-05-23] MEDS: Pantoprazole 80 MG in Sodium Chloride 0.9% 100 ML IVP SCH (05:00)
[2018-05-23 06:13] LABS: HEMOGLOBIN 10.3 g/dL (11.0-16.0); MEAN CELL VOLUME 89.4 fL (81.0-99.0); MEAN CORPUSCULAR HGB CONC 33.6 g/dL (33.0-37.0); MEAN PLATELET VOLUME 9.2 fL (7.2-11.7); RBC 3.42 Mil/uL (3.80-5.20); RED CELL DISTRIBUTION WIDTH 13.8 % (11.5-14.5); WHITE BLOOD COUNT 8.5 K/uL (4.8-10.8)
[2018-05-23 06:34] LABS: BLOOD UREA NITROGEN 18 mg/dL (7-17); CALCIUM 8.7 mg/dl (8.6-10.4); GFR NON-AFRICAN AMERICAN > 60
[2018-05-23] MEDS: Lactated Ringer's 1,000 ML IV SCH (06:34)
[2018-05-23] MEDS ORDERED: Propofol 10 mg/ml Inj (20 ML) ONE (07:59)
[2018-05-23] MEDS ORDERED: EPINEPHrine 1 mg/ml (1:1000) Inj ONE (08:11)
[2018-05-23] MEDS ORDERED: Etomidate 20 mg/10ml Inj IV ONE (08:24)
[2018-05-23] MEDS ORDERED: Lidocaine Hydrochloride 10 ML INJ ONE (08:24)
--- NOTE | 2018-05-23 08:24 | RAD ---
Chest x-ray single frontal view HISTORY: Triple-lumen catheter insertion. COMPARISON: 05/22/2018 Findings: Right central venous catheter tip extending to the cavoatrial junction. No evidence of postprocedure pneumothorax. Diffuse increased interstitial lung markings which may represent a mild venous congestion. Mild nodularity at the lateral aspect of the right midlung zone. Atherosclerotic calcification at the aortic knob. Biapical pleural thickening with upper lobe granulomatous changes. Postsurgical changes in the spine. Cardiomegaly. Degenerative changes in the spine and shoulders. Impression: Right central venous catheter tip extending to the cavoatrial junction. No evidence of postprocedure pneumothorax. Diffuse increased interstitial lung markings which may represent a mild venous congestion. Mild nodularity at the lateral aspect of the right midlung zone. Atherosclerotic calcification at the aortic knob. Biapical pleural thickening with upper lobe granulomatous changes. Postsurgical changes in the spine. Cardiomegaly.
--- NOTE | 2018-05-23 10:07 | CP.PCM.PN ---
Subjective - Date & Time of Evaluation Date of Evaluation: 05/23/18 Time of Evaluation: 07:25 - Subjective Subjective: General Surgery Pt seen and examined. Last BM was brown, pt went for upper and lower scopes this AM. No active bleeding seen. Pt only complaining of some pain in LLQ. Objective - Vital Signs/Intake and Output Vital Signs (last 24 hours): Temp Pulse Resp BP Pulse Ox 98.2 F 75 19 139/61 100 05/22/18 22:00 05/23/18 08:17 05/23/18 08:17 05/23/18 08:17 05/23/18 08:17 Intake and Output: 05/23/18 05/23/18 06:59 18:59 Intake Total 1305 220 Balance 1305 220 - Medications Medications: Current Medications Bisacodyl (Dulcolax) 10 mg PO ONCE ONE Stop: 05/24/18 17:01 Pantoprazole Sodium 80 mg/ (Sodium Chloride) 100 mls @ 10 mls/hr IVP .Q10H [facility]I Last Admin: 05/23/18 05:00 Dose: 10 mls/hr Lactated Ringer's (Lactated Ringer's) 1,000 mls @ 100 mls/hr IV .Q10H LACI Stop: 05/23/18 19:30 Last Admin: 05/23/18 06:34 Dose: Not Given Metoclopramide HCl (Reglan) 5 mg IVP Q6H [facility]ACI Polyethylene Glycol/Electrolytes (Golytely) 4,000 ml PO ONCE ONE Stop: 05/24/18 09:46 - Labs Labs: 05/23/18 06:07 05/23/18 06:07 PT 11.5 SECONDS (9.7-12.2) 05/22/18 22:21 INR 1.1 05/22/18 22:21 APTT 23 SECONDS (21-34) D 05/22/18 22:21 - Constitutional Appears: Non-toxic, No Acute Distress - Head Exam Head Exam: ATRAUMATIC, NORMOCEPHALIC - Eye Exam Eye Exam: EOMI. absent: Scleral icterus - Respiratory Exam Respiratory Exam: NORMAL BREATHING PATTERN. absent: Respiratory Distress - GI/Abdominal Exam GI & Abdominal Exam: Soft, Tenderness (in LLQ). absent: Distended - Neurological Exam Neurological Exam: Alert, Awake - Skin Skin Exam: Dry, Warm Assessment and Plan - Assessment and Plan (Free Text) Assessment: 77F with lower GI bleed, currently resolved Plan: Monitor H/H and BMs Transfuse PRN Diet per GI No surgical intervention planned at this time, will monitor. D/W Dr. Marcela Pascual PGY4
--- NOTE | 2018-05-23 10:54 | NM ---
Date of service: 05/22/2018 PROCEDURE: Nuclear medicine gastrointestinal bleeding scan. HISTORY: bleeding COMPARISON: None available. TECHNIQUE: 4ccof patient blood was withdrawn and mixed with 20mCi of technetium ultra tagged. Images of the abdomen and pelvis were obtained in the anterior and posterior projection at 1 min intervals over a period of 45 min. FINDINGS: Foci of abnormal extravasation of tracer were observed 1st at the left mid to lower abdomen which increased in size and extending to the left upper abdomen and midline lower abdomen as well as to the right right abdomen consistent with active bleeding likely in the mid to distal descending colon. The radiotracer activity noted in the left upper abdomen likely in the splenic flexure extending in retrograde fashion from the mid to lower descending colon focal/foci of active GI bleeding. Physiologic activity was seen in the heart, liver, spleen and blood vessels. IMPRESSION: Abnormal study with findings suggestive of mid to distal descending colon focal/foci of active GI bleeding that extending to the sigmoid colon and extending in retrograde fashion to the splenic flexure as discussed above. Preliminary report was submitted by [facility] Radiology contains concordant findings.
[2018-05-23] MEDS: Sodium Chloride 0.9% 1,000 ML IV SCH ×2 (11:20→23:15)
--- NOTE | 2018-05-23 15:25 | CP.CCUPN ---
CCU Objective - Vital Signs / Intake & Output Intake and Output (Last 8hrs): Intake & Output 05/23/18 05/23/18 05/23/18 06:59 14:59 22:59 Intake Total 1065 1190 Balance 1065 1190 Weight 142 lb 8 oz Intake: IV 200 Intake, IV Amount 80 30 Right Medial Port 0 0 Right Proximal Port 80 30 Oral 960 Blood Product 985 Other: # Bowel Movements 1 2 - Physical Exam Head: Positive for: Atraumatic, Normocephalic Pupils: Positive for: PERRL Extroacular Muscles: Positive for: EOMI Conjunctiva: Positive for: Normal Mouth: Positive for: Moist Mucous Membranes Nose (External): Positive for: Atraumatic, Abrasion Respiratory/Chest: Positive for: Clear to Auscultation, Good Air Exchange. Negative for: Respiratory Distress Cardiovascular: Positive for: Regular Rate and Rhythm Abdomen: Positive for: Distention, Normal Bowel Sounds. Negative for: Tenderness Upper Extremity: Positive for: Normal Inspection Lower Extremity: Positive for: Normal Inspection Neurological: Positive for: CN II-XII Intact, Speech Normal Psychiatric: Positive for: Alert, Oriented x 3 - Medications Active Medications: Active Medications Generic Name Dose Route Start Last Admin Trade Name Freq PRN Reason Stop Dose Admin Bisacodyl 10 mg 05/24/18 17:00 Dulcolax PO 05/24/18 17:01 ONCE ONE Sodium Chloride 1,000 mls @ 75 mls/hr 05/23/18 10:30 05/23/18 11:20 Sodium Chloride 0.9% IV 75 mls/hr .[id number] LACI Administration Metoclopramide HCl 5 mg 05/23/18 09:45 05/23/18 09:45 Reglan IVP Not Given Q6H LACI Polyethylene Glycol/Electrolytes 4,000 ml 05/24/18 09:45 Golytely PO 05/24/18 09:46 ONCE ONE - Patient Studies Lab Studies: Lab Studies 05/23/18 05/23/18 05/22/18 Range/Units 06:07 06:07 23:12 WBC 8.5 (4.8-10.8) K/uL RBC 3.42 L (3.80-5.20) Mil/uL Hgb 10.3 L (11.0-16.0) g/dL Hct 30.6 L (34.0-47.0) % MCV 89.4 (81.0-99.0) fL MCH 30.0 (27.0-31.0) pg MCHC 33.6 (33.0-37.0) g/dL RDW 13.8 (11.5-14.5) % Plt Count 205 (130-400) K/uL MPV 9.2 (7.2-11.7) fL Neut % (Auto) (50.0-75.0) % Lymph % (Auto) (20.0-40.0) % [place] % (Auto) (0.0-10.0) % Eos % (Auto) (0.0-4.0) % Baso % (Auto) (0.0-2.0) % Neut # (Auto) (1.8-7.0) K/uL Lymph # (Auto) (1.0-4.3) K/uL [place] # (Auto) (0.0-0.8) K/uL Eos # (Auto) (0.0-0.7) K/uL Baso # (Auto) (0.0-0.2) K/uL PT (9.7-12.2) SECONDS INR APTT (21-34) SECONDS Fibrinogen (200-400) mg/dL Sodium 125 L (132-148) mmol/L Potassium 3.5 L (3.6-5.2) mmol/L Chloride 94 L (98-107) mmol/L Carbon Dioxide 25 (22-30) mmol/L Anion Gap 8 L (10-20) BUN 18 H (7-17) mg/dL Creatinine 0.5 L (0.7-1.2) mg/dL Est GFR ( Amer) > 60 Est GFR (Non-Af Amer) > 60 Random Glucose 89 (65-105) mg/dL Serum Osmolality (272-300) mosm/kg Lactic Acid (0.7-2.1) mmol/L Calcium 8.7 (8.6-10.4) mg/dl Phosphorus 3.3 (2.5-4.5) mg/dL Magnesium 1.3 L (1.6-2.3) mg/dL Total Bilirubin (0.2-1.3) mg/dL AST (14-36) U/L ALT (9-52) U/L Alkaline Phosphatase (38-126) U/L Total Protein (6.3-8.3) g/dL Albumin (3.5-5.0) g/dL Globulin (2.2-3.9) gm/dL Albumin/Globulin Ratio (1.0-2.1) Urine Osmolality (300-1000) mosm/kg Ur Random Sodium mmol/L Stool Occult Blood Positive H (NEGATIVE) Blood Type Antibody Screen 05/22/18 05/22/18 05/22/18 Range/Units 22:21 22:21 22:21 WBC (4.8-10.8) K/uL RBC (3.80-5.20) Mil/uL Hgb (11.0-16.0) g/dL Hct (34.0-47.0) % MCV (81.0-99.0) fL MCH (27.0-31.0) pg MCHC (33.0-37.0) g/dL RDW (11.5-14.5) % Plt Count (130-400) K/uL MPV (7.2-11.7) fL Neut % (Auto) (50.0-75.0) % Lymph % (Auto) (20.0-40.0) % [place] % (Auto) (0.0-10.0) % Eos % (Auto) (0.0-4.0) % Baso % (Auto) (0.0-2.0) % Neut # (Auto) (1.8-7.0) K/uL Lymph # (Auto) (1.0-4.3) K/uL [place] # (Auto) (0.0-0.8) K/uL Eos # (Auto) (0.0-0.7) K/uL Baso # (Auto) (0.0-0.2) K/uL PT 11.5 (9.7-12.2) SECONDS INR 1.1 APTT 23 D (21-34) SECONDS Fibrinogen 198 L (200-400) mg/dL Sodium 124 L (132-148) mmol/L Potassium 3.0 L (3.6-5.2) mmol/L Chloride 93 L (98-107) mmol/L Carbon Dioxide 23 (22-30) mmol/L Anion Gap 10 (10-20) BUN 17 (7-17) mg/dL Creatinine 0.6 L (0.7-1.2) mg/dL Est GFR ( Amer) > 60 Est GFR (Non-Af Amer) > 60 Random Glucose 95 (65-105) mg/dL Serum Osmolality (272-300) mosm/kg Lactic Acid 0.6 L (0.7-2.1) mmol/L Calcium 8.2 L (8.6-10.4) mg/dl Phosphorus 2.8 (2.5-4.5) mg/dL Magnesium 1.1 L (1.6-2.3) mg/dL Total Bilirubin 0.9 (0.2-1.3) mg/dL AST 18 (14-36) U/L ALT 21 (9-52) U/L Alkaline Phosphatase 67 (38-126) U/L Total Protein 5.3 L (6.3-8.3) g/dL Albumin 2.8 L D (3.5-5.0) g/dL Globulin 2.4 (2.2-3.9) gm/dL Albumin/Globulin Ratio 1.2 (1.0-2.1) Urine Osmolality (300-1000) mosm/kg Ur Random Sodium mmol/L Stool Occult Blood (NEGATIVE) Blood Type Antibody Screen 05/22/18 05/22/18 05/22/18 Range/Units 22:21 17:53 15:38 WBC 6.7 (4.8-10.8) K/uL RBC 2.91 L (3.80-5.20) Mil/uL Hgb 8.5 L D 11.4 (11.0-16.0) g/dL Hct 25.7 L 34.9 (34.0-47.0) % MCV 88.3 (81.0-99.0) fL MCH 29.3 (27.0-31.0) pg MCHC 33.2 (33.0-37.0) g/dL RDW 14.1 (11.5-14.5) % Plt Count 248 (130-400) K/uL MPV 8.4 (7.2-11.7) fL Neut % (Auto) 75.6 H (50.0-75.0) % Lymph % (Auto) 13.1 L (20.0-40.0) % [place] % (Auto) 8.4 (0.0-10.0) % Eos % (Auto) 1.7 (0.0-4.0) % Baso % (Auto) 1.2 (0.0-2.0) % Neut # (Auto) 5.1 (1.8-7.0) K/uL Lymph # (Auto) 0.9 L (1.0-4.3) K/uL [place] # (Auto) 0.6 (0.0-0.8) K/uL Eos # (Auto) 0.1 (0.0-0.7) K/uL Baso # (Auto) 0.1 (0.0-0.2) K/uL PT (9.7-12.2) SECONDS INR APTT (21-34) SECONDS Fibrinogen (200-400) mg/dL Sodium (132-148) mmol/L Potassium (3.6-5.2) mmol/L Chloride (98-107) mmol/L Carbon Dioxide (22-30) mmol/L Anion Gap (10-20) BUN (7-17) mg/dL Creatinine (0.7-1.2) mg/dL Est GFR ( Amer) Est GFR (Non-Af Amer) Random Glucose (65-105) mg/dL Serum Osmolality 258 L (272-300) mosm/kg Lactic Acid (0.7-2.1) mmol/L Calcium (8.6-10.4) mg/dl Phosphorus (2.5-4.5) mg/dL Magnesium (1.6-2.3) mg/dL Total Bilirubin (0.2-1.3) mg/dL AST (14-36) U/L ALT (9-52) U/L Alkaline Phosphatase (38-126) U/L Total Protein (6.3-8.3) g/dL Albumin (3.5-5.0) g/dL Globulin (2.2-3.9) gm/dL Albumin/Globulin Ratio (1.0-2.1) Urine Osmolality (300-1000) mosm/kg Ur Random Sodium mmol/L Stool Occult Blood (NEGATIVE) Blood Type Antibody Screen 05/22/18 05/22/18 Range/Units 15:05 14:07 WBC (4.8-10.8) K/uL RBC (3.80-5.20) Mil/uL Hgb (11.0-16.0) g/dL Hct (34.0-47.0) % MCV (81.0-99.0) fL MCH (27.0-31.0) pg MCHC (33.0-37.0) g/dL RDW (11.5-14.5) % Plt Count (130-400) K/uL MPV (7.2-11.7) fL Neut % (Auto) (50.0-75.0) % Lymph % (Auto) (20.0-40.0) % [place] % (Auto) (0.0-10.0) % Eos % (Auto) (0.0-4.0) % Baso % (Auto) (0.0-2.0) % Neut # (Auto) (1.8-7.0) K/uL Lymph # (Auto) (1.0-4.3) K/uL [place] # (Auto) (0.0-0.8) K/uL Eos # (Auto) (0.0-0.7) K/uL Baso # (Auto) (0.0-0.2) K/uL PT (9.7-12.2) SECONDS INR APTT (21-34) SECONDS Fibrinogen (200-400) mg/dL Sodium (132-148) mmol/L Potassium (3.6-5.2) mmol/L Chloride (98-107) mmol/L Carbon Dioxide (22-30) mmol/L Anion Gap (10-20) BUN (7-17) mg/dL Creatinine (0.7-1.2) mg/dL Est GFR ( Amer) Est GFR (Non-Af Amer) Random Glucose (65-105) mg/dL Serum Osmolality (272-300) mosm/kg Lactic Acid (0.7-2.1) mmol/L Calcium (8.6-10.4) mg/dl Phosphorus (2.5-4.5) mg/dL Magnesium (1.6-2.3) mg/dL Total Bilirubin (0.2-1.3) mg/dL AST (14-36) U/L ALT (9-52) U/L Alkaline Phosphatase (38-126) U/L Total Protein (6.3-8.3) g/dL Albumin (3.5-5.0) g/dL Globulin (2.2-3.9) gm/dL Albumin/Globulin Ratio (1.0-2.1) Urine Osmolality 501 (300-1000) mosm/kg Ur Random Sodium 93 mmol/L Stool Occult Blood (NEGATIVE) Blood Type A POSITIVE Antibody Screen Negative Laboratory Results - last 24 hr 05/22/18 05/22/18 05/22/18 14:07 15:05 15:38 WBC RBC Hgb Hct MCV MCH MCHC RDW Plt Count MPV Neut % (Auto) Lymph % (Auto) [place] % (Auto) Eos % (Auto) Baso % (Auto) Neut # (Auto) Lymph # (Auto) [place] # (Auto) Eos # (Auto) Baso # (Auto) PT INR APTT Fibrinogen Sodium Potassium Chloride Carbon Dioxide Anion Gap BUN Creatinine Est GFR ( Amer) Est GFR (Non-Af Amer) Random Glucose Serum Osmolality 258 L Lactic Acid Calcium Phosphorus Magnesium Total Bilirubin AST ALT Alkaline Phosphatase Total Protein Albumin Globulin Albumin/Globulin Ratio Urine Osmolality 501 Ur Random Sodium 93 Stool Occult Blood Blood Type A POSITIVE Antibody Screen Negative 05/22/18 05/22/18 05/22/18 17:53 22:21 22:21 WBC 6.7 RBC 2.91 L Hgb 11.4 8.5 L D Hct 34.9 25.7 L MCV 88.3 MCH 29.3 MCHC 33.2 RDW 14.1 Plt Count 248 MPV 8.4 Neut % (Auto) 75.6 H Lymph % (Auto) 13.1 L [place] % (Auto) 8.4 Eos % (Auto) 1.7 Baso % (Auto) 1.2 Neut # (Auto) 5.1 Lymph # (Auto) 0.9 L [place] # (Auto) 0.6 Eos # (Auto) 0.1 Baso # (Auto) 0.1 PT 11.5 INR 1.1 APTT 23 D Fibrinogen 198 L Sodium Potassium Chloride Carbon Dioxide Anion Gap BUN Creatinine Est GFR ( Amer) Est GFR (Non-Af Amer) Random Glucose Serum Osmolality Lactic Acid Calcium Phosphorus Magnesium Total Bilirubin AST ALT Alkaline Phosphatase Total Protein Albumin Globulin Albumin/Globulin Ratio Urine Osmolality Ur Random Sodium Stool Occult Blood Blood Type Antibody Screen 05/22/18 05/22/18 05/22/18 22:21 22:21 23:12 WBC RBC Hgb Hct MCV MCH MCHC RDW Plt Count MPV Neut % (Auto) Lymph % (Auto) [place] % (Auto) Eos % (Auto) Baso % (Auto) Neut # (Auto) Lymph # (Auto) [place] # (Auto) Eos # (Auto) Baso # (Auto) PT INR APTT Fibrinogen Sodium 124 L Potassium 3.0 L Chloride 93 L Carbon Dioxide 23 Anion Gap 10 BUN 17 Creatinine 0.6 L Est GFR ( Amer) > 60 Est GFR (Non-Af Amer) > 60 Random Glucose 95 Serum Osmolality Lactic Acid 0.6 L Calcium 8.2 L Phosphorus 2.8 Magnesium 1.1 L Total Bilirubin 0.9 AST 18 ALT 21 Alkaline Phosphatase 67 Total Protein 5.3 L Albumin 2.8 L D Globulin 2.4 Albumin/Globulin Ratio 1.2 Urine Osmolality Ur Random Sodium Stool Occult Blood Positive H Blood Type Antibody Screen 05/23/18 05/23/18 06:07 06:07 WBC 8.5 RBC 3.42 L Hgb 10.3 L Hct 30.6 L MCV 89.4 MCH 30.0 MCHC 33.6 RDW 13.8 Plt Count 205 MPV 9.2 Neut % (Auto) Lymph % (Auto) [place] % (Auto) Eos % (Auto) Baso % (Auto) Neut # (Auto) Lymph # (Auto) [place] # (Auto) Eos # (Auto) Baso # (Auto) PT INR APTT Fibrinogen Sodium 125 L Potassium 3.5 L Chloride 94 L Carbon Dioxide 25 Anion Gap 8 L BUN 18 H Creatinine 0.5 L Est GFR ( Amer) > 60 Est GFR (Non-Af Amer) > 60 Random Glucose 89 Serum Osmolality Lactic Acid Calcium 8.7 Phosphorus 3.3 Magnesium 1.3 L Total Bilirubin AST ALT Alkaline Phosphatase Total Protein Albumin Globulin Albumin/Globulin Ratio Urine Osmolality Ur Random Sodium Stool Occult Blood Blood Type Antibody Screen Radiology Impressions: Radiology Impressions Abdomen/Pelvis CT 05/22/18 14:44 IMPRESSION: Findings most consistent with diverticular gastrointestinal bleed at the distal descending/sigmoid junction. Additional stable findings as above. Findings given to Dr. Love by Dr. Zapata at 5:10 p.m. on 05/22/2018. GI Bleed Scan Nuclear Medicine 05/22/18 21:44 IMPRESSION: Abnormal study with findings suggestive of mid to distal descending colon focal/foci of active GI bleeding that extending to the sigmoid colon and extending in retrograde fashion to the splenic flexure as discussed above. Preliminary report was submitted by [facility] Radiology contains concordant findings. Chest X-Ray 05/22/18 22:07 Impression: Right central venous catheter tip extending to the cavoatrial junction. No evidence of postprocedure pneumothorax. Diffuse increased interstitial lung markings which may represent a mild venous congestion. Mild nodularity at the lateral aspect of the right midlung zone. Atherosclerotic calcification at the aortic knob. Biapical pleural thickening with upper lobe granulomatous changes. Postsurgical changes in the spine. Cardiomegaly. Review of Systems - Review of Systems All systems: reviewed and no additional remarkable complaints except - Gastrointestinal Gastrointestinal: Abdominal Pain Critical Care Progress Note - Nutrition Nutrition: Nutrition Category Date Time Status Liquid Diet [DIET] Diets 05/23/18 Lunch Active NPO Diet [DIET] Diets 05/25/18 Breakfast Active Assessment/Plan (1) GI bleed Assessment and plan: 77yo F. PMHx HTN, diverticulosis. p/w melanotic stool and BRBPR. Neuro: alert and oriented x 3 Pulm: no acute issues, breathing spontaneously on room air CV: hemodynamically stable, holding anti-hypertensives. Hem: s/p 3 PRBC, 1 FFP, blood loss anemia now stable. Renal: no acute issues, will monitor urine output. Endo: no acute issues GI: full liquid diet. EGD & Colonoscopy (05/23) found nothing but impacted stool, pt was disimpacted. Diverticular bleeding appears to have stopped. repeat colonoscopy on Friday. GI - Dr. Gupta ID: no acute issues. DVT proph - SCD's, no a/c with current bleeding GI proph - protonix Code status - full code Critical Care Time spent 35 minutes Multi-disciplinary rounds were performed with house staff, nursing, speech therapy, respiratory therapy, pharmacy and nutrition with integrated input from the primary team/attending and other consulting services. The documented time is cumulative and includes review of patient data/exams/labs/chart review and examination of the patient on rounds and throughout the day; time is exclusive of any procedures or teaching time. Current Visit: Yes Status: Acute
--- NOTE | 2018-05-23 20:27 | CP.PCM.PN ---
Subjective - Date & Time of Evaluation Date of Evaluation: 05/23/18 Time of Evaluation: 17:00 - Subjective Subjective: dict Objective - Vital Signs/Intake and Output Vital Signs (last 24 hours): Temp Pulse Resp BP Pulse Ox 98.5 F 79 18 168/76 H 100 05/23/18 16:51 05/23/18 16:51 05/23/18 16:51 05/23/18 16:51 05/23/18 16:51 Intake and Output: 05/23/18 05/24/18 18:59 06:59 Intake Total 2800 Output Total 1480 Balance 1320 - Medications Medications: Current Medications Acetaminophen (Tylenol 325mg Tab) 650 mg PO Q6 PRN PRN Reason: Pain, moderate (4-7) Last Admin: 05/23/18 16:32 Dose: 650 mg Bisacodyl (Dulcolax) 10 mg PO ONCE ONE Stop: 05/24/18 17:01 Sodium Chloride (Sodium Chloride 0.9%) 1,000 mls @ 75 mls/hr IV .[id number] [facility] Last Admin: 05/23/18 11:20 Dose: 75 mls/hr Potassium Chloride (Potassium Chloride 20 Meq/100 Ml) 20 meq in 100 mls @ 50 mls/hr IVPB ONCE ONE Stop: 05/23/18 21:13 Last Admin: 05/23/18 19:48 Dose: 50 mls/hr Metoclopramide HCl (Reglan) 5 mg IVP Q6H [facility] Last Admin: 05/23/18 16:35 Dose: 5 mg Pantoprazole Sodium (Protonix Ec Tab) 40 mg PO DAILY [facility] Polyethylene Glycol/Electrolytes (Golytely) 4,000 ml PO ONCE ONE Stop: 05/24/18 09:46 - Labs Labs: 05/23/18 06:07 05/23/18 06:07 PT 11.5 SECONDS (9.7-12.2) 05/22/18 22:21 INR 1.1 05/22/18 22:21 APTT 23 SECONDS (21-34) D 05/22/18 22:21
[2018-05-23 21:56] LABS: HEMOGLOBIN 11.5 g/dL (11.0-16.0); MEAN CELL VOLUME 89.2 fL (81.0-99.0); MEAN CORPUSCULAR HGB CONC 33.6 g/dL (33.0-37.0); MEAN PLATELET VOLUME 8.8 fL (7.2-11.7); RBC 3.82 Mil/uL (3.80-5.20); RED CELL DISTRIBUTION WIDTH 13.6 % (11.5-14.5); WHITE BLOOD COUNT 8.8 K/uL (4.8-10.8)
--- NOTE | 2018-05-23 23:24 | PN ---
DATE: 05/23/2018 SUBJECTIVE: The patient's hemoglobin dropped. The patient required blood transfusion. Her hemoglobin is up to 10 and her bleeding is going down. She underwent colonoscopy and she was not actively bleeding. Her sodium and potassium is low. She is afebrile. No shortness of breath. No nausea or vomiting. PHYSICAL EXAMINATION: VITAL SIGNS: Blood pressure is 168/76, pulse 79, respiratory rate 18, temperature 98.5. LUNGS: Clear. ABDOMEN: Soft, nontender. Bowel sounds are positive. ASSESSMENT: Gastrointestinal bleed. PLAN: The patient has been seen by Surgery and she is not a candidate for surgery, especially in light of the fact that her bleeding has stopped. Jonnie Us MD
[2018-05-24 05:55] LABS: BASO # 0.1 K/uL (0.0-0.2); BASO % 1.1 % (0.0-2.0); EOS # 0.4 K/uL (0.0-0.7); EOS % 5.8 % (0.0-4.0); HEMOGLOBIN 10.9 g/dL (11.0-16.0); LYMPH # 0.8 K/uL (1.0-4.3); LYMPH % 11.1 % (20.0-40.0); MEAN CORPUSCULAR HEMOGLOBIN 30.2 pg (27.0-31.0); MEAN CORPUSCULAR HGB CONC 33.5 g/dL (33.0-37.0); MEAN PLATELET VOLUME 9.2 fL (7.2-11.7); MONO # 0.8 K/uL (0.0-0.8); MONO % 10.6 % (0.0-10.0); NEUT # 5.2 K/uL (1.8-7.0); NEUT % 71.4 % (50.0-75.0); RBC 3.62 Mil/uL (3.80-5.20); RED CELL DISTRIBUTION WIDTH 13.9 % (11.5-14.5); WHITE BLOOD COUNT 7.3 K/uL (4.8-10.8)
[2018-05-24 06:15] LABS: ALB/GLOB RATIO 1.1 (1.0-2.1); ALT/SGPT 18 U/L (9-52); AST/SGOT 24 U/L (14-36); BLOOD UREA NITROGEN 14 mg/dL (7-17); GFR NON-AFRICAN AMERICAN > 60
[2018-05-24] MEDS: Sodium Chloride 0.9% 1,000 ML IV SCH ×3 (06:45→22:10)
--- NOTE | 2018-05-24 07:39 | HP ---
CHIEF COMPLAINT: Rectal bleed, HISTORY OF PRESENT ILLNESS: The patient is a 77-year-old female well known to me with history of diverticulosis in the past, hypertension, allergic rhinitis. The patient has extensive lumbar disk problems, and she has undergone multiple surgeries. She was recently discharged from [facility]. The patient was in [facility] admitted with back pain, underwent CT of lumbar spine and neurosurgical evaluation, sent home. She is not taking any nonsteroidal. She is taking Naprosyn at home. The patient is in his usual status. He is ambulatory with assistance, and on the day of admission, she has two episodes of bright red blood per rectum. No vomiting. No hematemesis. No melena. She has abdominal discomfort which is diffuse and more to the left lower quadrant. Along with that she has weakness, dizziness. She denies any history of polyuria, polydipsia, polyphagia. She denies any history of hematuria, pyuria. There is no history of recent trauma or fall. She denies any epigastric pain. She denies any cough, sore throat. She denies any sneezing, itchy eyes, itchy nose. PAST MEDICAL HISTORY: Hypertension, allergic rhinitis, osteoarthritis, lumbar disk disease. SOCIAL HISTORY: Nonsmoker, non-ET[employer] user. CURRENT MEDICATIONS: At home, she is on Naprosyn, Dexilant, Colace, Lotrisone, Aleve, Lexapro, Bystolic, clonazepam, ampicillin. ALLERGIES: ALLERGIC TO VANCOMYCIN. PHYSICAL EXAMINATION: GENERAL: An elderly female, in no acute distress. She is weak. VITAL SIGNS: Blood pressure is 137/68, pulse 68, respiratory rate 19, temperature 98.2. SKIN: Dry and cold. No bruises, no purpura, no petechiae. HEENT: Atraumatic and normocephalic. Negative pallor. Negative jaundice. Extraocular movements are intact. NECK: Supple. No JVD. No lymph node. No thyromegaly. No carotid bruit. CHEST WALL: Bilateral symmetrical expansion. No tenderness. No deformity. LUNGS: Bilaterally clear. No rales. No rhonchi. CARDIOVASCULAR SYSTEM: PMI not localized. S1 and S2 are regular. No heave. No thrill. ABDOMEN: Soft. Left lower quadrant tenderness. No guarding. No rebound. No rigidity. Bowel sounds are exaggerated. RECTAL: Positive for occult blood. EXTREMITIES: No clubbing, cyanosis, or edema. CENTRAL NERVOUS SYSTEM: Alert, awake, and oriented x3. Cranial nerves II through XII are normal. Power 5/5 x4. Plantars are downgoing. ASSESSMENT: 1. Gastrointestinal bleed, most likely it is a diverticular source of bleeding. It could be precipitated by nonsteroidal anti-inflammatory drug. It could be peptic ulcer disease. It could be nonsteroidal anti-inflammatory drug induced gastritis. 2. Dehydration. 3. Hypertension. 4. Lumbar disk disease. PLAN: Admit. Detailed orders are written. Seen and examined. Jonnie Us MD
--- NOTE | 2018-05-24 08:41 | PN ---
DATE: 05/24/2018 LOCATION: ICU 8. SUBJECTIVE: This is a 77-year-old female post upper and lower endoscopy yesterday, seen and examined early in rounds with the family member at bedside, her daughter as well as the ICU staff without reported active bleeding during night. No chest pain or palpitation but generalized weakness and malaise. The entire chart is reviewed and today's lab results showed hemoglobin 10.9, hematocrit 32.9 post blood transfusion with sodium 127, potassium 3.3 with low creatinine, albumin 3, total protein 5.6. PHYSICAL EXAMINATION: GENERAL: A 77-year-old female, appears to be awake, alert, oriented. VITAL SIGNS: Afebrile with pulse of 76 and blood pressure of 162/74. HEENT: Showed pale dry oral mucoid membrane. Nonicteric sclerae. LUNGS: Few scattered crepitation. Decreased air entry at bases. HEART: Positive S1 and S2. ABDOMEN: Soft. Bowel sounds are present. No mass or organomegaly. No rebound tenderness or guarding. EXTREMITIES: Without significant clubbing, cyanosis or edema. NEUROLOGIC: No reported new neurological deficits. IMPRESSION: 1. Gastrointestinal bleeding, subsiding gradually. 2. Diffuse diverticulosis. 3. Fecal impaction, diagnosed by colonoscopy. 4. Re-exacerbation of peptic ulcer disease. 5. Anemia, secondary to above. 6. Multiple past medical history including colon polyps, osteoarthritis, hyperlipidemia with osteoporosis and severe anxiety syndrome, history of hypertension. SUGGESTIONS: 1. Continue current management. 2. Repeat colonoscopy at a.m. when the patient is more stable clinically. 3. Further recommendation to follow. Sravan Nunes MD
[2018-05-24] MEDS ORDERED: Peg-Electrolyte Oral Soln 4L (Golytely) PO ONE (09:45)
[2018-05-24] MEDS: Pantoprazole 40 mg EC Tab PO SCH (09:46)
--- NOTE | 2018-05-24 16:54 | CP.PCM.PN ---
Subjective - Date & Time of Evaluation Date of Evaluation: 05/24/18 Time of Evaluation: 07:30 - Subjective Subjective: Surgery: Dr. Medrano Pt seen and examined. No acute overnight events. States she feels a lot better and her abdominal pain has improved significantly. She denies any more blood per rectum. Denies nausea/vomiting, fevers/chills. Objective - Vital Signs/Intake and Output Vital Signs (last 24 hours): Temp Pulse Resp BP Pulse Ox 98.0 F 78 14 165/73 H 100 05/24/18 16:00 05/24/18 16:00 05/24/18 16:00 05/24/18 16:00 05/24/18 16:00 Intake and Output: 05/24/18 05/24/18 06:59 18:59 Intake Total 1050 1675 Output Total 900 150 Balance 150 1525 - Medications Medications: Current Medications Acetaminophen (Tylenol 325mg Tab) 650 mg PO Q6 PRN PRN Reason: Pain, moderate (4-7) Last Admin: 05/24/18 09:54 Dose: 650 mg Bisacodyl (Dulcolax) 10 mg PO ONCE ONE Stop: 05/24/18 17:01 Sodium Chloride (Sodium Chloride 0.9%) 1,000 mls @ 75 mls/hr IV .[id number] [facility] Last Admin: 05/24/18 06:45 Dose: 75 mls/hr Metoclopramide HCl (Reglan) 5 mg IVP Q6H [facility] Last Admin: 05/24/18 15:35 Dose: 5 mg Pantoprazole Sodium (Protonix Ec Tab) 40 mg PO DAILY [facility] Last Admin: 05/24/18 09:46 Dose: 40 mg - Labs Labs: 05/24/18 05:50 05/24/18 05:50 PT 11.5 SECONDS (9.7-12.2) 05/22/18 22:21 INR 1.1 05/22/18 22:21 APTT 23 SECONDS (21-34) D 05/22/18 22:21 - Constitutional Appears: Well, No Acute Distress - Head Exam Head Exam: ATRAUMATIC, NORMOCEPHALIC - Eye Exam Eye Exam: Normal appearance - ENT Exam ENT Exam: Mucous Membranes Moist - Respiratory Exam Respiratory Exam: NORMAL BREATHING PATTERN - Cardiovascular Exam Cardiovascular Exam: RRR - GI/Abdominal Exam GI & Abdominal Exam: Soft. absent: Distended, Tenderness - Extremities Exam Extremities Exam: absent: Tenderness - Neurological Exam Neurological Exam: Alert, Awake, Oriented x3 - Skin Skin Exam: Dry, Warm Assessment and Plan - Assessment and Plan (Free Text) Assessment: 77F with GIB Plan: - H/H stable - no active bleeding found during EGD or C-scope - no plan for surgical intervention at this time - d/w Dr. Marcela Monaco
[2018-05-24] MEDS ORDERED: Bisacodyl 5mg EC Tab PO ONE (17:00)
--- NOTE | 2018-05-24 21:06 | CP.PCM.PN ---
Subjective - Date & Time of Evaluation Date of Evaluation: 05/24/18 Time of Evaluation: 09:00 - Subjective Subjective: dciated Objective - Vital Signs/Intake and Output Vital Signs (last 24 hours): Temp Pulse Resp BP Pulse Ox 98.0 F 79 14 165/73 H 100 05/24/18 16:00 05/24/18 17:53 05/24/18 16:00 05/24/18 16:00 05/24/18 16:00 Intake and Output: 05/24/18 05/25/18 18:59 06:59 Intake Total 2155 195 Output Total 500 350 Balance 1655 -155 - Medications Medications: Current Medications Acetaminophen (Tylenol 325mg Tab) 650 mg PO Q6 PRN PRN Reason: Pain, moderate (4-7) Last Admin: 05/24/18 09:54 Dose: 650 mg Sodium Chloride (Sodium Chloride 0.9%) 1,000 mls @ 75 mls/hr IV .[id number] [facility] Last Admin: 05/24/18 16:51 Dose: Not Given Metoclopramide HCl (Reglan) 5 mg IVP Q6H [facility] Last Admin: 05/24/18 15:35 Dose: 5 mg Pantoprazole Sodium (Protonix Ec Tab) 40 mg PO DAILY [facility] Last Admin: 05/24/18 09:46 Dose: 40 mg - Labs Labs: 05/24/18 05:50 05/24/18 05:50 PT 11.5 SECONDS (9.7-12.2) 05/22/18 22:21 INR 1.1 05/22/18 22:21 APTT 23 SECONDS (21-34) D 05/22/18 22:21
--- NOTE | 2018-05-25 02:19 | PN ---
DATE: 05/24/2018 SUBJECTIVE: The patient is not actively bleeding. Her H and H have been stabilized. She has been seen by GI. Her potassium is still low. Sodium is coming up gradually. Positive FOB. No nausea or vomiting, on diet. A bleeding scan was done two days ago. Her bleeding scan is suggestive of distal descending colon bleeding which was negative on colonoscopy. The patient also had a chest x-ray done and the chest x-ray does not show any infiltrate. There is right central venous catheter with atherosclerotic disease of the aorta. PHYSICAL EXAMINATION: VITAL SIGNS: Blood pressure is 165/73, pulse 78, respiratory rate 14, temperature 98. LUNGS: Clear. CVS: S1, S2. Regular. ABDOMEN: Soft. ASSESSMENT: 1. Diverticulosis with bleeding, improved. 2. Hypokalemia, hyponatremia. 3. Hypertension. 4. Back pain. PLAN: Continue current medications. Monitor the patient. Jonnie Us MD
[2018-05-25] MEDS: Sodium Chloride 0.9% 1,000 ML IV SCH ×2 (02:30→13:51)
[2018-05-25 06:13] LABS: BASO # 0.1 K/uL (0.0-0.2); BASO % 0.8 % (0.0-2.0); EOS # 0.4 K/uL (0.0-0.7); EOS % 5.1 % (0.0-4.0); HEMOGLOBIN 10.8 g/dL (11.0-16.0); LYMPH # 0.8 K/uL (1.0-4.3); LYMPH % 9.6 % (20.0-40.0); MEAN CELL VOLUME 90.7 fL (81.0-99.0); MEAN CORPUSCULAR HEMOGLOBIN 30.8 pg (27.0-31.0); MEAN PLATELET VOLUME 8.9 fL (7.2-11.7); MONO # 0.8 K/uL (0.0-0.8); MONO % 9.8 % (0.0-10.0); NEUT # 6.4 K/uL (1.8-7.0); NEUT % 74.7 % (50.0-75.0); PLATELET COUNT 201 K/uL (130-400); RBC 3.48 Mil/uL (3.80-5.20); RED CELL DISTRIBUTION WIDTH 13.5 % (11.5-14.5); WHITE BLOOD COUNT 8.6 K/uL (4.8-10.8)
[2018-05-25 06:32] LABS: ALB/GLOB RATIO 1.3 (1.0-2.1); ALBUMIN 3.1 g/dL (3.5-5.0); ALT/SGPT 17 U/L (9-52); AST/SGOT 19 U/L (14-36); BLOOD UREA NITROGEN 8 mg/dL (7-17); CALCIUM 8.9 mg/dl (8.6-10.4); GFR NON-AFRICAN AMERICAN > 60
[2018-05-25 08:46] LABS: ANISOCYTOSIS SLIGHT; BASOPHIL 1 % (0-2); EOSINOPHIL 4 % (0-4); HYPOCHROMIC SLIGHT; LYMPHOCYTE 8 % (20-40); MONOCYTE 9 % (0-10); NEUTROPHIL 77 % (50-75); PLATELET ESTIMATE NORMAL (NORMAL); POIKILOCYTOSIS SLIGHT; REACTIVE LYMPHOCYTES 1 % (0-0); TOTAL CELLS COUNTED 100
[2018-05-25] MEDS: Magnesium Sulfate 1 gm in D5W 1 GM/100 ML BAG IVPB SCH ×2 (09:32→10:04)
[2018-05-25] MEDS ORDERED: Propofol 10 mg/ml Inj (20 ML) ONE (11:14)
[2018-05-25] MEDS ORDERED: Lactated Ringer's 500 ML IV ONE ×2 (11:22)
[2018-05-25] MEDS: Pantoprazole 40 mg EC Tab PO SCH (13:50)
--- NOTE | 2018-05-25 14:02 | CP.PCM.PN ---
Subjective - Date & Time of Evaluation Date of Evaluation: 05/25/18 Time of Evaluation: 14:02 Objective - Vital Signs/Intake and Output Vital Signs (last 24 hours): Temp Pulse Resp BP Pulse Ox 98.3 F 84 15 172/93 H 99 05/25/18 08:00 05/25/18 13:00 05/25/18 13:00 05/25/18 13:00 05/25/18 13:00 Intake and Output: 05/25/18 05/25/18 06:59 18:59 Intake Total 1260 Output Total 353 Balance 907 - Medications Medications: Current Medications Acetaminophen (Tylenol 325mg Tab) 650 mg PO Q6 PRN PRN Reason: Pain, moderate (4-7) Last Admin: 05/24/18 22:00 Dose: 650 mg Sodium Chloride (Sodium Chloride 0.9%) 1,000 mls @ 75 mls/hr IV .[id number] [facility] Last Admin: 05/25/18 13:51 Dose: 75 mls/hr Losartan Potassium (Cozaar) 50 mg PO DAILY [facility] Last Admin: 05/25/18 09:37 Dose: 50 mg Metoclopramide HCl (Reglan) 5 mg IVP Q6H [facility] Last Admin: 05/25/18 09:33 Dose: 5 mg Pantoprazole Sodium (Protonix Ec Tab) 40 mg PO DAILY [facility] Last Admin: 05/25/18 13:50 Dose: 40 mg - Labs Labs: 05/25/18 06:07 05/25/18 06:05 PT 11.5 SECONDS (9.7-12.2) 05/22/18 22:21 INR 1.1 05/22/18 22:21 APTT 23 SECONDS (21-34) D 05/22/18 22:21 Assessment and Plan - Assessment and Plan (Free Text) Assessment: FOLLOW UP WITH DR DESIR IN HIS OFFICE -----CALL FOR APPOINTMENT FOLLOW UP WITH DR CASTANON IN HIS OFFICE ------CALL FOR APPOINTMENT CONTINUE HOME MEDICATION NEW PRESCRIPTION GIVEN BACTORBAN ECAH NASTRIL TWICE A DAY FOR 5 DAYS COLACE 100 MG BY MOUTH THREE TIME A DAY LOSARTAN 50 MG BY MOUTH DAILY ACTIVITY TOLERATED CALL DR DESIR OR GO TO THE EMERGENCY ROOM IF SYMPTOM RETURN OR WORSENING
[2018-05-25 15:22] VITALS: BP 165/74; PULSE 80; RESP 18; TEMP 98; O2SAT 100
--- NOTE | 2018-05-25 20:32 | CP.PCM.DIS ---
Provider - Provider Date of Admission: 05/22/18 18:04 Attending physician: Jonnie Us MD Consults: 05/22/18 15:13 Physician Consult Routine Comment: Consulting Provider: Sravan Chapman Consulting Physician: Sravan Chapman Reason for Consult: gi bleed 05/22/18 21:44 General Surgery Consult Routine Comment: Consulting Provider: Burke Medrano Jr. Consulting Physician: Burke Medrano Jr. Reason for Consult: surgical consult- rectal bleed Time Spent in preparation of Discharge (in minutes): 30 Hospital Course - Lab Results Lab Results: Micro Results 05/23/18 06:16 Naris MRSA Culture (Admit) - Final MRSA DETECTED Most Recent Lab Values WBC 8.6 K/uL (4.8-10.8) 05/25/18 06:07 RBC 3.48 Mil/uL (3.80-5.20) L 05/25/18 06:07 Hgb 10.8 g/dL (11.0-16.0) L 05/25/18 06:07 Hct 31.6 % (34.0-47.0) L 05/25/18 06:07 MCV 90.7 fL (81.0-99.0) 05/25/18 06:07 MCH 30.8 pg (27.0-31.0) 05/25/18 06:07 MCHC 34.0 g/dL (33.0-37.0) 05/25/18 06:07 RDW 13.5 % (11.5-14.5) 05/25/18 06:07 Plt Count 201 K/uL (130-400) 05/25/18 06:07 MPV 8.9 fL (7.2-11.7) 05/25/18 06:07 Neut % (Auto) 74.7 % (50.0-75.0) 05/25/18 06:07 Lymph % (Auto) 9.6 % (20.0-40.0) L 05/25/18 06:07 Ford % (Auto) 9.8 % (0.0-10.0) 05/25/18 06:07 Eos % (Auto) 5.1 % (0.0-4.0) H 05/25/18 06:07 Baso % (Auto) 0.8 % (0.0-2.0) 05/25/18 06:07 Neut # (Auto) 6.4 K/uL (1.8-7.0) 05/25/18 06:07 Lymph # (Auto) 0.8 K/uL (1.0-4.3) L 05/25/18 06:07 Ford # (Auto) 0.8 K/uL (0.0-0.8) 05/25/18 06:07 Eos # (Auto) 0.4 K/uL (0.0-0.7) 05/25/18 06:07 Baso # (Auto) 0.1 K/uL (0.0-0.2) 05/25/18 06:07 Neutrophils % (Manual) 77 % (50-75) H 05/25/18 06:07 Band Neutrophils % 2 % (0-2) 05/22/18 13:51 Lymphocytes % (Manual) 8 % (20-40) L 05/25/18 06:07 Reactive Lymphs % 1 % (0-0) H 05/25/18 06:07 Monocytes % (Manual) 9 % (0-10) 05/25/18 06:07 Eosinophils % (Manual) 4 % (0-4) 05/25/18 06:07 Basophils % (Manual) 1 % (0-2) 05/25/18 06:07 Platelet Estimate Normal (NORMAL) 05/25/18 06:07 RBC Morphology Normal 05/22/18 13:51 Hypochromasia (manual) Slight 05/25/18 06:07 Poikilocytosis (manual Slight 05/25/18 06:07 Anisocytosis (manual) Slight 05/25/18 06:07 PT 11.5 SECONDS (9.7-12.2) 05/22/18 22:21 INR 1.1 05/22/18 22:21 APTT 23 SECONDS (21-34) D 05/22/18 22:21 Fibrinogen 198 mg/dL (200-400) L 05/22/18 22:21 Sodium 129 mmol/L (132-148) L 05/25/18 06:05 Potassium 3.4 mmol/L (3.6-5.2) L 05/25/18 06:05 Chloride 100 mmol/L (98-107) 05/25/18 06:05 Carbon Dioxide 24 mmol/L (22-30) 05/25/18 06:05 Anion Gap 8 (10-20) L 05/25/18 06:05 BUN 8 mg/dL (7-17) 05/25/18 06:05 Creatinine 0.5 mg/dL (0.7-1.2) L 05/25/18 06:05 Est GFR ( Amer) > 60 05/25/18 06:05 Est GFR (Non-Af Amer) > 60 05/25/18 06:05 Random Glucose 87 mg/dL (65-105) 05/25/18 06:05 Serum Osmolality 258 mosm/kg (272-300) L 05/22/18 15:38 Lactic Acid 0.6 mmol/L (0.7-2.1) L 05/22/18 22:21 Calcium 8.9 mg/dl (8.6-10.4) 05/25/18 06:05 Phosphorus 2.4 mg/dL (2.5-4.5) L 05/25/18 06:05 Magnesium 1.3 mg/dL (1.6-2.3) L 05/25/18 06:05 Total Bilirubin 0.6 mg/dL (0.2-1.3) 05/25/18 06:05 AST 19 U/L (14-36) 05/25/18 06:05 ALT 17 U/L (9-52) 05/25/18 06:05 Alkaline Phosphatase 66 U/L (38-126) 05/25/18 06:05 Troponin I < 0.0120 ng/mL (0.00-0.120) 05/22/18 14:07 Total Protein 5.6 g/dL (6.3-8.3) L 05/25/18 06:05 Albumin 3.1 g/dL (3.5-5.0) L 05/25/18 06:05 Globulin 2.4 gm/dL (2.2-3.9) 05/25/18 06:05 Albumin/Globulin Ratio 1.3 (1.0-2.1) 05/25/18 06:05 Lipase 98 U/L (23-300) 05/22/18 14:07 Urine Color Yellow (YELLOW) 05/22/18 14:40 Urine Clarity Clear (Clear) 05/22/18 14:40 Urine pH 6.0 (5.0-8.0) 05/22/18 14:40 Ur Specific [place] 1.015 (1.003-1.030) 05/22/18 14:40 Urine Protein Negative mg/dL (NEGATIVE) 05/22/18 14:40 Urine Glucose (UA) Normal mg/dL (Normal) 05/22/18 14:40 Urine Ketones Negative mg/dL (NEGATIVE) 05/22/18 14:40 Urine Blood 3+ (NEGATIVE) H 05/22/18 14:40 Urine Nitrate Negative (NEGATIVE) 05/22/18 14:40 Urine Bilirubin Negative (NEGATIVE) 05/22/18 14:40 Urine Urobilinogen Normal mg/dL (0.2-1.0) 05/22/18 14:40 Ur Leukocyte Esterase Neg Merle/uL (Negative) 05/22/18 14:40 Urine WBC (Auto) 1 /hpf (0-5) 05/22/18 14:40 Urine RBC (Auto) 557 /hpf (0-3) H 05/22/18 14:40 Ur Squamous Epith Cells 2 /hpf (0-5) 05/22/18 14:40 Urine Osmolality 501 mosm/kg (300-1000) 05/22/18 15:05 Ur Random Sodium 93 mmol/L 05/22/18 15:05 Stool Occult Blood Positive (NEGATIVE) H 05/22/18 23:12 Blood Type A POSITIVE 05/22/18 14:07 Antibody Screen Negative 05/22/18 14:07 Discharge Exam - Head Exam Head Exam: ATRAUMATIC, NORMOCEPHALIC Discharge Plan - Discharge Medications Prescriptions: Mupirocin 2% Nasal [Bactroban 2% Nasal] 0.25 gm TP BID #1 gm Docusate Sodium [Colace] 100 mg PO BID 30 Days capsule Losartan [Cozaar] 50 mg PO DAILY 30 Days tab - Follow Up Plan Condition: CRITICAL Disposition: HOME/ ROUTINE Additional Instructions: FOLLOW UP WITH DR US IN HIS OFFICE -----CALL FOR APPOINTMENT FOLLOW UP WITH DR CHAPMAN IN HIS OFFICE ------CALL FOR APPOINTMENT CONTINUE HOME MEDICATION NEW PRESCRIPTION GIVEN BACTORBAN ECAH NASTRIL TWICE A DAY FOR 5 DAYS COLACE 100 MG BY MOUTH THREE TIME A DAY LOSARTAN 50 MG BY MOUTH DAILY ACTIVITY TOLERATED CALL DR US OR GO TO THE EMERGENCY ROOM IF SYMPTOM RETURN OR WORSENING Referrals: Sravan Chapman [Staff Provider] - Jonnie Us MD [Staff Provider] - Burke Medrano Jr., MD [Staff Provider] -
--- NOTE | 2018-05-26 08:59 | DS ---
DISCHARGE DIAGNOSES: 1. Diverticulosis with bleeding. 2. Hypertension. 3. Lumbar disk disease. 4. Allergic rhinitis. HISTORY OF PRESENT ILLNESS: This is a 77-year-old female, well known to me with history of lumbar disk disease, multiple back surgeries, hypertension, allergic rhinitis, and diverticulosis with prior history of hospitalization for diverticulosis. Currently, she is taking non-steroidal antiinflammatory drugs, prescribed to her by Spine Surgery after she had back surgery. Patient developed GI bleed, blood per rectum bright red, and patient was brought into the emergency room, and she was hospitalized. Patient was resuscitated with blood transfusion, IV fluids, oxygen stabilized. Underwent bleeding scan which showed sigmoid colon bleed, and it was confirmed by colonoscopy but at that time she was not actively bleeding, and patient was advised conservative medical management. Patient is stable, and she is for discharge. Her H and H are stable. She is not bleeding, and her NSAID has been discontinued. PHYSICAL EXAMINATION: VITAL SIGNS: Blood pressure 172/93, pulse 84, respiratory rate 15, temperature 98. LUNGS: Clear. CARDIOVASCULAR SYSTEM: S1, S2 regular. ABDOMEN: Soft. Flat. PLAN: Discharge patient. Monitor the patient. Jonnie Us MD
== END 2018-05-25 16:10 | disposition home or self-care (01) | DRG 378 ==
LOC: C.ER 12:31 → C.9I 18:04
PROVIDERS: ADMIT Internal Medicine; ATTEND Internal Medicine
PROC: 30233K1 Transfusion of Nonautologous Frozen Plasma into Peripheral Vein, Percutaneous Approach (ICD-10-PCS; 2018-05-23)
PROC: 30233N1 Transfusion of Nonautologous Red Blood Cells into Peripheral Vein, Percutaneous Approach (ICD-10-PCS; 2018-05-23)
PROC: 0DJD8ZZ Inspection of Lower Intestinal Tract, Via Natural or Artificial Opening Endoscopic (ICD-10-PCS; principal; 2018-05-23 08:00)
PROC: 0DJ08ZZ Inspection of Upper Intestinal Tract, Via Natural or Artificial Opening Endoscopic (ICD-10-PCS; 2018-05-23 08:00)
DX: K57.31 Diverticulosis of large intestine without perforation or abscess with bleeding (principal); E87.1 Hypo-osmolality and hyponatremia; I11.9 Hypertensive heart disease without heart failure; M51.9 Unspecified thoracic, thoracolumbar and lumbosacral intervertebral disc disorder; J30.9 Allergic rhinitis, unspecified; D32.1 Benign neoplasm of spinal meninges; D50.0 Iron deficiency anemia secondary to blood loss (chronic); E78.00 Pure hypercholesterolemia, unspecified; E78.5 Hyperlipidemia, unspecified; E86.0 Dehydration; E87.6 Hypokalemia; G47.30 Sleep apnea, unspecified; M54.5 Low back pain; G89.29 Other chronic pain; I70.0 Atherosclerosis of aorta; K27.9 Peptic ulcer, site unspecified, unspecified as acute or chronic, without hemorrhage or perforation; K21.0 Gastro-esophageal reflux disease with esophagitis; K44.9 Diaphragmatic hernia without obstruction or gangrene; K56.41 Fecal impaction; M81.0 Age-related osteoporosis without current pathological fracture; Z80.8 Family history of malignant neoplasm of other organs or systems; Z82.5 Family history of asthma and other chronic lower respiratory diseases; Z86.010 Personal history of colon polyps; Z96.652 Presence of left artificial knee joint; Z98.1 Arthrodesis status

== ENCOUNTER 2018-06-16 18:16 | Inpatient (IN) | payer MEDICARE ==
[2018-06-16 18:16] VITALS: BMI 27.9
[2018-06-16] MEDS ORDERED: Sodium Chloride 0.9% 500 ML IV ONE (18:35)
[2018-06-16 18:50] LABS: BASO % 0.6 % (0.0-2.0); EOS # 0.1 K/uL (0.0-0.7); EOS % 0.7 % (0.0-4.0); HEMOGLOBIN 12.6 g/dL (11.0-16.0); LYMPH # 0.5 K/uL (1.0-4.3); LYMPH % 6.4 % (20.0-40.0); MEAN CORPUSCULAR HEMOGLOBIN 29.4 pg (27.0-31.0); MEAN CORPUSCULAR HGB CONC 33.4 g/dL (33.0-37.0); MEAN PLATELET VOLUME 7.9 fL (7.2-11.7); MONO # 0.4 K/uL (0.0-0.8); MONO % 5.8 % (0.0-10.0); NEUT # 6.2 K/uL (1.8-7.0); NEUT % 86.5 % (50.0-75.0); NRBC % 0.1 % (0.0-2.0); RBC 4.28 Mil/uL (3.80-5.20); RED CELL DISTRIBUTION WIDTH 13.9 % (11.5-14.5); WHITE BLOOD COUNT 7.2 K/uL (4.8-10.8)
[2018-06-16] MEDS ORDERED: Sodium Chloride 0.9% 1,000 ML ONE (18:51)
--- NOTE | 2018-06-16 18:54 | C.PDOC ---
History Of Present Illness Patient FERMIN from home for evaluation after she had a witnessed tonic/clonic seizure in her bed at approx 5:30pm today. Patient's daughter states her eyes rolled in the back of her head and she had whole body shaking, (+) confusion when she woke up. They deny tongue lacerations, loss of bowel/bladder incontinence. Patient denies PMhx of seizure disorder. PMHx: anxiety/depression, HTN, hyperlipidemia, osteoporosis, JOLENE, spinal meningioma Time Seen by Provider: 06/16/18 18:24 Chief Complaint (Nursing): Seizure History Per: Patient, Family History/Exam Limitations: no limitations Recent Seizure Activity Began: Hours Ago: Number Of Seizures: One Length Of Seizures (Duration): Seconds Quality Of Seizure: Generalized Post-ictal Period: Yes Severity: Moderate Past Medical History Reviewed: Historical Data, Nursing Documentation, Vital Signs Vital Signs: Last Vital Signs Temp 99 F 06/16/18 18:23 Pulse 96 H 06/16/18 18:23 Resp 22 06/16/18 18:23 BP 143/89 06/16/18 18:23 Pulse Ox 98 06/16/18 18:23 - Medical History PMH: Anxiety, Arthritis (knee ; back), Colonic Polyps, Depression, Fractures (lumbar), HTN, Hypercholesterolemia, Osteoporosis, Peripheral Edema, Sleep Apnea (has c-pap at home not using. being assessed for a different device) Surgical History: Appendectomy, Back Surgery [facility] Procedures COLONOSCOPY (08/11/13) ESOPHAGOGASTRODUODENOSCOPY [EGD] W/CLOSED BIOPSY (08/11/13) EXCISION OF DESCENDING COLON, ENDO, DIAGN (12/06/17) EXCISION OF SMALL INTESTINE, ENDO, DIAGN (12/06/17) FUSION THOR JT W AUTOL SUB, POST APPR P COL, OPEN (11/25/17) INSPECTION OF LOWER INTESTINAL TRACT, ENDO (05/22/18) INSPECTION OF UPPER INTESTINAL TRACT, ENDO (05/22/18) INTRODUCTION OF ANTI-INFLAM INTO SPINAL CANAL, PERC APPROACH (05/06/18) RELEASE LUMBAR NERVE, OPEN APPROACH (11/25/17) TRANSFUSE NONAUT FROZEN PLASMA IN PERIPH VEIN, PERC (05/22/18) TRANSFUSE NONAUT RED BLOOD CELLS IN PERIPH VEIN, PERC (05/22/18) VENOUS CATHETERIZATION NEC (12/30/14) Family History: States: No Known Family Hx - Social History Hx Alcohol Use: No Hx Substance Use: No - Immunization History Hx Tetanus Toxoid Vaccination: Yes Hx Influenza Vaccination: Yes Hx Pneumococcal Vaccination: Yes Review Of Systems Constitutional: Negative for: Fever, Chills Cardiovascular: Negative for: Chest Pain, Palpitations Respiratory: Positive for: Cough. Negative for: Shortness of Breath Gastrointestinal: Negative for: Nausea, Vomiting, Abdominal Pain, Diarrhea Skin: Negative for: Rash Neurological: Positive for: Seizures. Negative for: Weakness, Numbness, Incoordination, Headache, Dizziness Physical Exam - Physical Exam Appears: Well, Non-toxic, No Acute Distress Skin: Normal Color, Warm, Dry Eye(s): bilateral: Normal Inspection, EOMI, right: Other (right pupil irregular chronically ), left: PERRL Nose: Normal Oral Mucosa: Moist Cardiovascular: Rhythm Regular Respiratory: Normal Breath Sounds, No Rales, No Rhonchi, No Wheezing Gastrointestinal/Abdominal: Normal Exam, Bowel Sounds, Soft, No Tenderness Neurological/Psych: Oriented x3, Normal Speech, Normal Cognition ED Course And Treatment - Laboratory Results Result Diagrams: 06/16/18 18:47 06/16/18 18:47 ECG: Interpreted By Me, Viewed By Me (NSR 96 bpm, with PACs, normal axis, no acute ST/T wave changes) ECG Interpretation: No Acute Changes O2 Sat by Pulse Oximetry: 98 (RA) Pulse Ox Interpretation: Normal - CT Scan/US ct head Other Rad Studies (CT/US): Read By Radiologist, Radiology Report Reviewed CT/US Interpretation: PRELIMINARY REPORT [facility]. [address] [place] [address]. [place] [address]. Phone: [phone]. . Report Submission Date: Jun 16, 2018 7:59:26 PM EST. Name:WALTER LEE Exam Date:Jun 16, 2018 7:21:24 PM EST. Modality Type:CT. Description:CT - BRAIN WITH CORONAL AND SAGITTAL MPRS. Gender:F Laterality:Not applicable. :38 Referring Physician:NELSON SHER MD. EXAM: CT Head without Intravenous Contrast. CLINICAL HISTORY: SEIZURE. TECHNIQUE: Axial computed tomography images of the head/brain without intravenous contrast. 0.00 mGy-cm. COMPARISON: None provided. FINDINGS: BRAIN. There is moderate age- appropriate cerebral/cerebellar atrophy present. No acute intraparenchymal hemorrhage. No mass lesion. No CT evidence for acute territorial infarct. No midline shift or extra-axial collections. A 5.0 mm old lacunar infarction is seen in the left anterior periventricular white matter tracts. There are bilateral confluent periventricular and subcortical white matter hypolucencies compatible with severe chronic microvascular disease. VENTRICLES: No hydrocephalus. VASCULAR: Dense atherosclerotic vascular calcific plaquing is seen within the vertebral arteries and carotid siphons bilaterally. ORBITS: The orbits are unremarkable. SINUSES AND MASTOIDS: The paranasal sinuses and mastoid air cells are clear. BONES: No fracture. SOFT TISSUES: Unremarkable. IMPRESSION: 1. No acute intracranial abnormality. 2. Moderate age-ap propriate cerebral/cerebellar atrophy. 3. Severe chronic microvascular disease. 4. 5.0 mm old lacunar infarction in the left anterior periventricular white matter tracts. 5. Extensive atherosclerotic vascular plaquing as described above. . Electronically signed on Jun 16, 2018 7:59:26 PM EST by: Niels Houser M.D., NENO Certified By ABR & CBCCT. Fellowship Trained MRI and CT Specialist Progress Note: Blood work, EKG, UA, CT head ordered and reviewed. Disposition - Disposition Forms: [employer] (Swazi)
[2018-06-16 18:56] LABS: MEAN CELL VOLUME 87.9 fL (81.0-99.0); PLATELET COUNT 301 K/uL (130-400)
[2018-06-16 19:14] LABS: ALB/GLOB RATIO 1.2 (1.0-2.1); ALBUMIN 4.2 g/dL (3.5-5.0); ALT/SGPT 12 U/L (9-52); AST/SGOT 33 U/L (14-36); BLOOD UREA NITROGEN 15 mg/dL (7-17); CALCIUM 9.9 mg/dl (8.6-10.4); GFR NON-AFRICAN AMERICAN > 60
[2018-06-16 19:21] LABS: CK-MB 0.43 ng/mL (0.0-3.38)
[2018-06-16 20:59] LABS: BANDS 1 % (0-2); LYMPHOCYTE 9 % (20-40); MONOCYTE 7 % (0-10); NEUTROPHIL 83 % (50-75); PLATELET ESTIMATE NORMAL (NORMAL); TOTAL CELLS COUNTED 100
[2018-06-16 22:31] LABS: SQUAMOUS EPITHIAL 3 /hpf (0-5); URINE BILIRUBIN NEGATIVE (NEGATIVE); URINE BLOOD NEGATIVE (NEGATIVE); URINE CLARITY Hazy (Clear); URINE COLOR Yellow (YELLOW); URINE GLUCOSE (UA) NORMAL (Normal); URINE LEUKOCYTE ESTERASE TRACE Leu/uL (Negative); URINE PROTEIN 2+ mg/dL (NEGATIVE)
[2018-06-16 22:36] LABS: URINE BACTERIA OCC (<OCC)
[2018-06-16] MEDS: Naproxen 550 mg Tab PO PRN (23:51)
--- NOTE | 2018-06-17 07:11 | CT ---
Date of service: 06/16/2018 PROCEDURE: CT HEAD WITHOUT CONTRAST. HISTORY: new onset seizure COMPARISON: None available. TECHNIQUE: Axial computed tomography images were obtained through the head/brain without intravenous contrast. Radiation dose: Total exam DLP = 941.24 mGy-cm. This CT exam was performed using one or more of the following dose reduction techniques: Automated exposure control, adjustment of the mA and/or kV according to patient size, and/or use of iterative reconstruction technique. FINDINGS: HEMORRHAGE: No intracranial hemorrhage. BRAIN: No mass effect or edema. Scattered focal lucencies in the subcortical and periventricular white matter suggestive for chronic microvascular ischemic change. Diffuse generalized parenchymal atrophy. Left caudate head lacunar infarct. Left basal ganglia lacunar infarct. VENTRICLES: Unremarkable. No hydrocephalus. CALVARIUM: Unremarkable. PARANASAL SINUSES: Unremarkable as visualized. No significant inflammatory changes. MASTOID AIR CELLS: Unremarkable as visualized. No inflammatory changes. OTHER FINDINGS: Intracranial arterial calcifications. IMPRESSION: No acute intracranial abnormality. Chronic microvascular ischemic changes. Diffuse generalized parenchymal atrophy. Lacunar infarcts in the left caudate head and basal ganglia. If symptoms persists, consider correlation with MRI. A preliminary report was generated at 7:59 p.m. on 06/16/[address] Niels Houser from [facility].
[2018-06-17] MEDS ORDERED: Gadodiamide 287 MG/ML VIAL (15ML) IV ONE (09:00)
[2018-06-17] MEDS: Enoxaparin 40 mg Syringe SC SCH (10:29)
[2018-06-17] MEDS: Naproxen 550 mg Tab PO PRN ×2 (10:34→21:06)
--- NOTE | 2018-06-17 10:38 | MRI ---
Date of service: 06/17/2018 PROCEDURE: MRI BRAIN WITH AND WITHOUT CONTRAST HISTORY: Seizure COMPARISON: Noncontrast head CT from 06/16/2018. TECHNIQUE: Multiplanar, multisequence MR images of the brain were obtained with and without intravenous contrast enhancement. 12 mL Omniscan was injected intravenously. FINDINGS: HEMORRHAGE: None DWI: No evidence of an acute or early subacute infarction. BRAIN PARENCHYMA: There are moderate chronic microangiopathic changes. There is no mass, mass effect or abnormal extra-axial fluid collection. There is no territorial infarction. There is an empty sella. Otherwise, the midline sagittal structures are normal. No abnormal intracranial enhancement. VENTRICLES: There is moderate age-related global parenchymal volume loss and proportionate enlargement of the ventricles and cortical sulci. Cranium There is normal bone marrow signal pattern. ORBITS: Grossly unremarkable. PARANASAL SINUSES/MASTOIDS: The paranasal sinuses are predominantly clear. There is a large right mastoid effusion. The left mastoid air cells are clear. VASCULAR SYSTEM: There are normal signal voids in the larger intracranial arteries. OTHER FINDINGS: None . IMPRESSION: 1. No acute intracranial abnormality. 2. Moderate chronic microangiopathic changes and moderate age-related global parenchymal volume loss. 3. Large right mastoid effusion.
[2018-06-17 20:55] VITALS: RESP 20
--- NOTE | 2018-06-17 20:59 | CP.PCM.HP ---
Present on Admission - Present on Admission Any Indicators Present on Admission: No Past Patient History - Infectious Disease Hx of Infectious Diseases: None - Tetanus Immunizations Tetanus Immunization: Unknown - Past Medical History & Family History Past Medical History?: Yes - Past Social History Smoking Status: Never Smoked - CARDIAC Hx Hypercholesterolemia: Yes Hx Hypertension: Yes - PULMONARY Hx Sleep Apnea: Yes (has c-pap at home not using. being assessed for a different device) - NEUROLOGICAL Hx Neurological Disorder: Yes Hx Dizziness: Yes - HEENT Hx HEENT Problems: Yes Hx Cataracts: Yes (BILAT IOL) - RENAL Hx Chronic Kidney Disease: No - ENDOCRINE/METABOLIC Hx Endocrine Disorders: No - HEMATOLOGICAL/ONCOLOGICAL Hx Blood Disorders: No - INTEGUMENTARY Hx Dermatological Problems: No - MUSCULOSKELETAL/RHEUMATOLOGICAL Hx Arthritis: Yes (knee ; back) Hx Falls: No Hx Fractures: Yes (lumbar) Hx Osteoporosis: Yes - GASTROINTESTINAL Hx Gastrointestinal Disorders: Yes Hx Gastroesophageal Reflux: Yes - GENITOURINARY/GYNECOLOGICAL Hx Genitourinary Disorders: Yes (URINARY FREQUENCY UTERINE PROLAPSE) - PSYCHIATRIC Hx Anxiety: Yes Hx Depression: Yes Hx Substance Use: No - SURGICAL HISTORY Hx Appendectomy: Yes - ANESTHESIA Hx Anesthesia: Yes Hx Anesthesia Reactions: No Hx Malignant Hyperthermia: No Meds Allergies/Adverse Reactions: Allergies Allergy/AdvReac Type Severity Reaction Status Date / Time vancomycin Allergy ANAPHYLAXIS Verified 06/16/18 18:28 Results - Vital Signs Recent Vital Signs: Last Vital Signs Temp 98.2 F 06/17/18 15:30 Pulse 73 06/17/18 15:30 Resp 20 06/17/18 15:30 BP 179/69 H 06/17/18 15:30 Pulse Ox 97 06/17/18 15:30 - Labs Result Diagrams: 06/16/18 18:47 06/16/18 18:47 Labs: Laboratory Results - last 24 hr 06/16/18 06/16/18 18:47 22:24 Neutrophils % (Manual) 83 H Band Neutrophils % 1 Lymphocytes % (Manual) 9 L Monocytes % (Manual) 7 Platelet Estimate Normal Urine Color Yellow Urine Clarity Hazy Urine pH 6.0 Ur Specific [place] 1.017 Urine Protein 2+ H Urine Glucose (UA) Normal Urine Ketones Negative Urine Blood Negative Urine Nitrate Negative Urine Bilirubin Negative Urine Urobilinogen 2.0 H Ur Leukocyte Esterase Trace Urine WBC (Auto) 8 H Urine RBC (Auto) 2 Ur Squamous Epith Cells 3 Urine Bacteria Occ H Hyaline Casts 6-10 H
--- NOTE | 2018-06-17 21:37 | CARD ---
APPROVED REPORT Date of service: 06/16/2018 EKG Measurement Heart [id number] <Conclusion> Sinus rhythm with premature atrial complexes Otherwise normal ECG
--- NOTE | 2018-06-18 06:38 | HP ---
CHIEF COMPLAINT: Seizure episode. HISTORY OF PRESENT ILLNESS: This is a 77-year-old female, well known to me with history of hypertension, hyperlipidemia, allergic rhinitis. She has lumbar radiculopathy with history of multiple hospitalizations, and she had several surgeries done in the past. In her usual state of health, she is home bound and she is mostly wheelchair and bed bound. She is dependent on her daughter for activities of daily living. She is compliant with diet, medication, and followup. On the day of admission around 5:30 p.m., she was noted by her daughter to have generalized tonic-clonic seizure with all four extremities shaking, twisting, eyes were rolling upwards, and the patient was not responsive. The episode lasted for about a minute to two minutes, associated with drowsiness, headache and sweating. She was confused when she woke up. There is no history of tongue bite or loss of urine. There is no history of nausea or vomiting. There is no history of any visual symptoms. According to the patient and the daughter, she had one episode in the past about a month ago while she was in the emergency room. The patient denies any fever or chills. There is no cough. No chest pain. No nausea or vomiting. There is no history of polyuria, polydipsia or polyphagia. There is no history of hematuria or pyuria. She denies any sneezing or itchy eyes. She has nasal congestion and rhinorrhea. She has back pain. She has knee pain, leg pain, and hip pain. There is no history of vertigo. PAST MEDICAL HISTORY: Multiple back problems, status post back surgery, hypertension, hyperlipidemia, anxiety, osteoarthritis. SOCIAL HISTORY: Nonsmoker, non-Et[employer] user. CURRENT MEDICATIONS: Bystolic, Naprosyn, Cozaar, Lexapro, vitamin D2, Colace, Dexilant, and Lotrisone. Past medical history as above. PHYSICAL EXAMINATION: GENERAL: An elderly female, in no distress. VITAL SIGNS: Blood pressure 179/69, pulse 73, respiratory rate 20, temperature 98.2. SKIN: Senile turgor. No bruises. No purpura. HEENT: Atraumatic and normocephalic. Negative pallor. Negative jaundice. Extraocular movements are intact. NECK: Supple. No JVD. No lymph node. No thyromegaly. CHEST WALL: Bilateral symmetrical expansion. BREASTS: No breast masses. No discharge. LUNGS: Clear. No rales. No rhonchi. CARDIOVASCULAR SYSTEM: PMI in fifth intercostal space. S1 and S2 are regular. No heave. No thrill. ABDOMEN: Soft, nontender. Bowel sounds are positive. EXTREMITIES: No clubbing, cyanosis, or edema. CENTRAL NERVOUS SYSTEM: Awake, alert, oriented x3. Cranial nerves II through XII are normal. Power 5/5 x4. Plantars are downgoing. ASSESSMENT: 1. New-onset seizure disorder, this is second episode, etiology unclear. 2. Hypertension. 3. Lumbar radiculopathy, status post surgery. 4. Osteoarthritis. PLAN: Admit. Neuro checks. Seizure precaution and neurology evaluation. Monitor the patient. Jonnie Us MD
[2018-06-18 08:08] VITALS: TEMP 98.3; O2SAT 98
[2018-06-18] MEDS: Enoxaparin 40 mg Syringe SC SCH (11:02)
[2018-06-18] MEDS: Naproxen 550 mg Tab PO PRN (11:12)
[2018-06-18 15:51] VITALS: BP 146/76; PULSE 66
--- NOTE | 2018-06-18 22:39 | CP.PCM.DIS ---
Provider - Provider Date of Admission: 06/16/18 20:32 Attending physician: Jonnie Us MD Consults: 06/16/18 21:29 Neurology Consult Routine Comment: Consulting Provider: Damon Pelletier Consulting Physician: Damon Pelletier Reason for Consult: seizure Time Spent in preparation of Discharge (in minutes): 30 Hospital Course - Lab Results Lab Results: Most Recent Lab Values WBC 7.2 K/uL (4.8-10.8) 06/16/18 18:47 RBC 4.28 Mil/uL (3.80-5.20) 06/16/18 18:47 Hgb 12.6 g/dL (11.0-16.0) 06/16/18 18:47 Hct 37.6 % (34.0-47.0) 06/16/18 18:47 MCV 87.9 fL (81.0-99.0) D 06/16/18 18:47 MCH 29.4 pg (27.0-31.0) 06/16/18 18:47 MCHC 33.4 g/dL (33.0-37.0) 06/16/18 18:47 RDW 13.9 % (11.5-14.5) 06/16/18 18:47 Plt Count 301 K/uL (130-400) D 06/16/18 18:47 MPV 7.9 fL (7.2-11.7) 06/16/18 18:47 Neut % (Auto) 86.5 % (50.0-75.0) H 06/16/18 18:47 Lymph % (Auto) 6.4 % (20.0-40.0) L 06/16/18 18:47 Coke % (Auto) 5.8 % (0.0-10.0) 06/16/18 18:47 Eos % (Auto) 0.7 % (0.0-4.0) 06/16/18 18:47 Baso % (Auto) 0.6 % (0.0-2.0) 06/16/18 18:47 Neut # (Auto) 6.2 K/uL (1.8-7.0) 06/16/18 18:47 Lymph # (Auto) 0.5 K/uL (1.0-4.3) L 06/16/18 18:47 Coke # (Auto) 0.4 K/uL (0.0-0.8) 06/16/18 18:47 Eos # (Auto) 0.1 K/uL (0.0-0.7) 06/16/18 18:47 Baso # (Auto) 0.0 K/uL (0.0-0.2) 06/16/18 18:47 Neutrophils % (Manual) 83 % (50-75) H 06/16/18 18:47 Band Neutrophils % 1 % (0-2) 06/16/18 18:47 Lymphocytes % (Manual) 9 % (20-40) L 06/16/18 18:47 Monocytes % (Manual) 7 % (0-10) 06/16/18 18:47 Platelet Estimate Normal (NORMAL) 06/16/18 18:47 PT 11.0 SECONDS (9.7-12.2) 06/16/18 18:47 INR 1.0 06/16/18 18:47 APTT 26 SECONDS (21-34) 06/16/18 18:47 Sodium 130 mmol/L (132-148) L 06/16/18 18:47 Potassium 3.6 mmol/L (3.6-5.2) 06/16/18 18:47 Chloride 96 mmol/L (98-107) L 06/16/18 18:47 Carbon Dioxide 23 mmol/L (22-30) 06/16/18 18:47 Anion Gap 14 (10-20) 06/16/18 18:47 BUN 15 mg/dL (7-17) 06/16/18 18:47 Creatinine 0.6 mg/dL (0.7-1.2) L 06/16/18 18:47 Est GFR ( Amer) > 60 06/16/18 18:47 Est GFR (Non-Af Amer) > 60 06/16/18 18:47 POC Glucose (mg/dL) 127 mg/dL (65-110) H 06/16/18 18:22 Random Glucose 108 mg/dL (65-105) H D 06/16/18 18:47 Calcium 9.9 mg/dl (8.6-10.4) 06/16/18 18:47 Total Bilirubin 0.8 mg/dL (0.2-1.3) 06/16/18 18:47 AST 33 U/L (14-36) 06/16/18 18:47 ALT 12 U/L (9-52) 06/16/18 18:47 Alkaline Phosphatase 114 U/L (38-126) 06/16/18 18:47 Total Creatine Kinase < 20 U/L (30-135) L 06/16/18 18:47 CK-MB (Mass) 0.43 ng/mL (0.0-3.38) 06/16/18 18:47 Troponin I 0.0190 ng/mL (0.00-0.120) 06/16/18 18:47 Total Protein 7.6 g/dL (6.3-8.3) 06/16/18 18:47 Albumin 4.2 g/dL (3.5-5.0) 06/16/18 18:47 Globulin 3.4 gm/dL (2.2-3.9) 06/16/18 18:47 Albumin/Globulin Ratio 1.2 (1.0-2.1) 06/16/18 18:47 Urine Color Yellow (YELLOW) 06/16/18 22:24 Urine Clarity Hazy (Clear) 06/16/18 22:24 Urine pH 6.0 (5.0-8.0) 06/16/18 22:24 Ur Specific Dickinson 1.017 (1.003-1.030) 06/16/18 22:24 Urine Protein 2+ mg/dL (NEGATIVE) H 06/16/18 22:24 Urine Glucose (UA) Normal mg/dL (Normal) 06/16/18 22:24 Urine Ketones Negative mg/dL (NEGATIVE) 06/16/18 22:24 Urine Blood Negative (NEGATIVE) 06/16/18 22:24 Urine Nitrate Negative (NEGATIVE) 06/16/18 22:24 Urine Bilirubin Negative (NEGATIVE) 06/16/18 22:24 Urine Urobilinogen 2.0 mg/dL (0.2-1.0) H 06/16/18 22:24 Ur Leukocyte Esterase Trace Merle/uL (Negative) 06/16/18 22:24 Urine WBC (Auto) 8 /hpf (0-5) H 06/16/18 22:24 Urine RBC (Auto) 2 /hpf (0-3) 06/16/18 22:24 Ur Squamous Epith Cells 3 /hpf (0-5) 06/16/18 22:24 Urine Bacteria Occ (<OCC) H 06/16/18 22:24 Hyaline Casts 6-10 /lpf (0-2) H 06/16/18 22:24 Discharge Plan - Follow Up Plan Condition: GOOD Disposition: HOME/ ROUTINE Instructions: Heart Healthy Diet, Seizures, Adult (DC) Referrals: Damon Pelletier MD [Staff Provider] - Jonnie Us MD [Staff Provider] -
--- NOTE | 2018-06-19 06:12 | CON ---
DATE: 06/18/2018 REASON FOR CONSULTATION: Seizure. HISTORY OF PRESENTING ILLNESS: The patient is a 77-year-old female, who was brought to the hospital after she was noted to have a seizure. The patient was apparently sitting and ordering, all of a sudden she went backwards, her entire body started shaking and eyes rolled up. The patient did not have any urine incontinence or tongue biting. The patient was unconscious for a minute or more. The patient was confused after the episode when she woke up. The patient never had seizure before. The patient denies taking any new medications. REVIEW OF SYSTEMS: Denies any headache, dizziness, chest pain, shortness of breath, abdominal pain, constipation, diarrhea, dysuria, cough, or sputum production. PAST MEDICAL HISTORY: Includes hypertension, anxiety, hyperlipidemia, osteoporosis, osteoarthritis. PAST SURGICAL HISTORY: Includes appendectomy and back surgery. MEDICATIONS: At home included Bystolic, naproxen, Cozaar, Lexapro, Colace, clonazepam, Dexilant. ALLERGIES: VANCOMYCIN. SOCIAL HISTORY: Denies smoking, use of alcohol or illicit drugs. FAMILY HISTORY: Reviewed and noncontributory to the case. PHYSICAL EXAMINATION: GENERAL: The patient is an elderly female, sitting, in no acute distress. VITAL SIGNS: Her blood pressure is 146/76, heart rate is 66 per minute, breathing at a rate of 16 per minute, temperature is 98.3 degrees Fahrenheit. HEENT: Normocephalic, atraumatic. NECK: Supple. There are no carotid bruits. LUNGS: Clear. CVS: S1 and S2 audible. No murmurs. ABDOMEN: Soft, nontender. Bowel sounds are present. NEUROLOGIC: Mental Status: The patient is awake, alert, oriented to time, place and person. Speech is fluent, naming and repetition normal. Memory and cognition are intact. Cranial nerve examination: Pupils are 3 mm bilaterally, reactive to light. Visual lynn are full. Extraocular movements are intact. There is no facial asymmetry. Palate is upgoing bilaterally and tongue is midline. Motor examination: Tone is normal and power is 5/5 bilaterally in all extremities. Reflexes are +1 and symmetrical. Plantar is downgoing bilaterally. Cerebellar examination: [id number] shows no dysmetria. Gait is narrow-based and slow. LABORATORY DATA: Reviewed showed WBC 7.2, hemoglobin 12.6, hematocrit 37.6 and platelets of 301. Sodium is 130, potassium 3.6, chloride 96, carbon dioxide 23, BUN of 15, creatinine 0.6, and glucose of 108. INR is 1. The patient had an MRI of the brain done which shows no acute intracranial abnormality. Moderate chronic microangiopathic changes and age-related volume loss. The patient had an electroencephalogram which was normal. IMPRESSION: New-onset seizure. RECOMMENDATION: 1. The patient was observed in the hospital and had no recurrence of seizure. 2. I had a prolonged discussion with the patient as well as the patient's daughter about the patient's condition, and we all agree on holding the patient's antiepileptic medication at the moment and if she has any recurrence of seizure, we will consider starting her on antiepileptic medication. 3. The patient has mildly low sodium. Please follow up on that. 4. No further neurologic recommendations at present. Please call Neurology on an as-needed basis. Thank you for the opportunity to participate in the care of this patient. Damon Pelletier MD
--- NOTE | 2018-06-19 19:11 | DS ---
DISCHARGE DIAGNOSES: 1. New onset seizure. 2. Hypertension. 3. Dehydration. 4. Lumbar disk disease. HISTORY OF PRESENT ILLNESS: This is a 77-year-old female with history of lumbar disk disease with multiple operations, hospitalizations, anxiety, hyperlipidemia, hypertension, compliant with diet, medication, and followup. She came in with new onset seizure. The patient was seen. MRI negative. She was seen by Neurology and Neurology did not require any antiepileptic and the patient was for discharge. CONDITION UPON DISCHARGE: Stable. The patient will be followed up by me as an outpatient. PHYSICAL EXAMINATION: The patient is afebrile. LUNGS: Clear. ABDOMEN: Soft. LABORATORY DATA: EKG normal sinus rhythm. PLAN: She is for discharge. Jonnie Us MD
[2018-06-23] MEDS ORDERED: Ergocalciferol 50,000 Intl Units Cap PO SCH (10:00)
== END 2018-06-18 19:29 | disposition home or self-care (01) | DRG 101 ==
LOC: C.ER 18:16 → C.9E 20:32 → C.6T 22:27
PROVIDERS: ADMIT Internal Medicine; ATTEND Internal Medicine
DX: G40.409 Other generalized epilepsy and epileptic syndromes, not intractable, without status epilepticus (principal); M54.16 Radiculopathy, lumbar region; Z74.01 Bed confinement status; Z99.3 Dependence on wheelchair; I10 Essential (primary) hypertension; G47.33 Obstructive sleep apnea (adult) (pediatric); E78.5 Hyperlipidemia, unspecified; M17.10 Unilateral primary osteoarthritis, unspecified knee; M81.0 Age-related osteoporosis without current pathological fracture

== ENCOUNTER 2018-08-03 06:36 | Day surgery (SDC) | payer MEDICARE ==
[2018-07-28 10:52] VITALS: BMI 27.1
[2018-08-03] MEDS ORDERED: Iohexol 240 (50 ml) ONE (07:21)
[2018-08-03] MEDS ORDERED: MethylPREDNISolone Depo 40 mg/ml Inj ONE (07:21)
[2018-08-03] MEDS ORDERED: Bacitracin 500 Units/gm Oint Foilpak UD ONE (07:21)
[2018-08-03] MEDS ORDERED: Sodium Chloride 0.9% 0 ML IV ONE (07:21)
--- NOTE | 2018-08-03 07:24 | HP ---
ADMITTING DIAGNOSIS: Spinal stenosis. HISTORY OF PRESENT ILLNESS: The patient is a 77-year-old female well known to me having had significant burst fracture at L1 in the past which required two different surgical procedures. She has been complaining of lower back pain with some radicular symptoms. Radiographic studies demonstrated spinal stenosis in the lower lumbar region. She received an epidural injection a couple of months ago which gave her some relief, and she is coming into the hospital at this time to receive the second injection. PAST MEDICAL HISTORY: Significant for anxiety, depressive disorder, hypertension, hyperlipidemia, osteoporosis, and recently diagnosed with spinal meningioma at T8. She has sleep apnea as well with CPAP at home which she is not using. PAST SURGICAL HISTORY: Significant for the back operation as well as appendectomy. MEDICATIONS: As listed on the chart. SOCIAL HISTORY: She does not take any alcohol nor does she smoke. PHYSICAL EXAMINATION: This is obtained from her medical doctor. HEART: She has regular rhythm. CHEST: Normal breath sounds. ABDOMEN: Soft and nontender. NEUROLOGIC: Grossly neurologic exam is intact. She has the healed scars from her past surgery for the burst fracture at L1 which required posterior fusion with instrumentation from T11 down to L3. IMPRESSION: Spinal stenosis. PLAN: The patient is being admitted for an epidural injection through same day surgery on 08/03/2018. Wes Eldridge MD
[2018-08-03] MEDS ORDERED: Midazolam 2 MG/2 ML VIAL ONE (07:30)
[2018-08-03] MEDS ORDERED: Sodium Chloride 0.9% 1,000 ML IV SCH (08:30)
[2018-08-03 08:55] VITALS: PULSE 85
[2018-08-03 09:01] VITALS: RESP 19
[2018-08-03 09:22] VITALS: BP 149/76; TEMP 98.5; O2SAT 96
--- NOTE | 2018-08-03 14:34 | RAD ---
Date of service: 08/03/2018 PROCEDURE: Intraoperative Fluoroscopy. HISTORY: SPINAL STENOSIS FINDINGS: Fluoroscopic assistance was provided for disc displacement corrective surgery. Please refer to the operative report from KEVIN Lindsey. Total fluoroscopic time (continuous mode) utilized during the procedure 0.0 seconds. Total exam DLP: 2.07 (mGy).
--- NOTE | 2018-08-03 19:34 | OP ---
PROCEDURE DATE: 08/03/2018 PREOPERATIVE DIAGNOSIS: Spinal stenosis. POSTOPERATIVE DIAGNOSIS: Spinal stenosis. OPERATION: Epidurogram of the lumbar spine. DESCRIPTION OF PROCEDURE: After the patient was positioned on the operating table with her back sterilely prepped and draped and the needle placed was felt to be the epidural space, an epidurogram of the lumbar spine was performed. A 1.5 mL of Omnipaque-240 contrast slowly injected through the needle. It flowed freely without resistance. As visualized intraoperative on fluoroscopic monitor, it was noted to outline the epidural space with spinal filling of the spinal canal as well as the left S1 root canal. There was evidence of stenosis consistent with her preoperative studies. Having verified location of the needle, we then proceeded with the administration of the patient's epidural injection. Wes Eldridge MD
--- NOTE | 2018-08-03 19:35 | OP ---
PROCEDURE DATE: 08/03/2018 PREOPERATIVE DIAGNOSIS: Spinal stenosis. POSTOPERATIVE DIAGNOSIS: Spinal stenosis. OPERATION: Left L5-S1 lumbar epidural steroid injection. SURGEON: Wes Eldridge MD ANESTHESIA: IV general. DESCRIPTION OF PROCEDURE: The patient was brought to the operating room and placed on the operating room table in a prone position. General anesthesia was achieved intravenously, and the patient's back was sterilely prepped and draped. Lidocaine 1% was used to infiltrate the site for the needle insertion that was located under fluoroscopy. A 20-gauge Tuohy needle was then inserted down to the level of superior lamina of S1 and slowly advanced cephalad till it was felt to go through the ligamentum. At that time, there was loss of resistance to the attached syringe, but no fluid on drawback. In order to confirm location of the needle, an epidurogram was performed, this will be dictated separately. After completion of the epidurogram, the patient received epidural steroid injection. A mixture of 80 mg of Depo-Medrol and normal saline were slowly injected into the epidural space. This flowed freely without resistance. The needle was then withdrawn. A bacitracin and Band-Aid dressing applied. The patient was gently transferred back onto her stretcher in supine position. She was taken back to same-day surgery in stable condition. She tolerated the procedure well. Wes Eldridge MD
== END 2018-08-03 09:29 | disposition home or self-care (01) ==
LOC: C.SDS 06:36
PROVIDERS: ATTEND Orthopaedic Surgery Orthopaedic Surgery of the Spine
DX: M48.061 Spinal stenosis, lumbar region without neurogenic claudication (principal); M51.27 Other intervertebral disc displacement, lumbosacral region
CPT/HCPCS: 62323; J1030; J2250; J3010; Q9966